=== PATIENT | female | born 1930 ===

== ENCOUNTER 2016-12-03 11:22 | Emergency (ER) | payer MEDICARE, OTHER ==
[2016-12-03 12:04] VITALS: BP 130/78; PULSE 87; RESP 18; TEMP 98.5; O2SAT 100
--- NOTE | 2016-12-03 12:23 | ED PDOC ---
Lower Extremity Pain/Injury Time Seen by Provider: 12/03/16 12:21 Chief Complaint (Nursing): Lower Extremity Problem/Injury Chief Complaint (Provider): Right Knee Pain History Per: Patient History/Exam Limitations: no limitations Onset/Duration Of Symptoms: Days (x2) Current Symptoms Are (Timing): Still Present Severity: Mild Additional Complaint(s): Patient is an 86 year old female presenting to the ED complaining of right knee pain x2 days. Patient denies trauma or injury. Patient takes Tylenol and Tramadol with relief. PMD: none Past Medical History Reviewed: Historical Data, Nursing Documentation, Vital Signs Vital Signs: Last Vital Signs Temp 98.5 F 12/03/16 12:01 Pulse 87 12/03/16 12:01 Resp 18 12/03/16 12:01 BP 130/78 12/03/16 12:01 Pulse Ox 100 12/03/16 12:01 - Medical History PMH: HTN, Osteoporosis - Surgical History Surgical History: Cholecystectomy, - Family History Family History: States: No Known Family Hx - Home Medications Home Medications: Ambulatory Orders Medication Instructions Recorded Meclizine [Meclizine*] 25 mg PO TID #21 tab 04/21/16 Ibuprofen [Motrin Tab] 600 mg PO Q6 #30 tab 07/15/16 Acetaminophen [Tylenol 325mg tab] 2 tab PO Q6 PRN #24 tab 08/18/16 Acetaminophen 2 tab PO Q6 PRN #20 tab 12/03/16 - Allergies Allergies/Adverse Reactions: Allergies Allergy/AdvReac Type Severity Reaction Status Date / Time No Known Allergies Allergy Verified 12/03/16 12:01 Review of Systems ROS Statement: Except As Marked, All Systems Reviewed And Found Negative Constitutional: Negative for: Fever Musculoskeletal: Positive for: Other (rt knee pain) Physical Exam - Reviewed Nursing Documentation Reviewed: Yes Vital Signs Reviewed: Yes - Physical Exam Appears: Positive for: Well, Non-toxic, No Acute Distress Head Exam: Positive for: ATRAUMATIC, NORMAL INSPECTION, NORMOCEPHALIC Skin: Positive for: Normal Color, Warm, DRY Neck: Positive for: Normal, Painless ROM Extremity: Positive for: Normal ROM (Able to flex and extend without difficulty. ), Tenderness (mild tenderness noted by patient generalized knee. No effusion/ no swelling noted.), Swelling Neurologic/Psych: Positive for: Alert, Oriented - ECG O2 Sat by Pulse Oximetry: 100 (RA) Pulse Ox Interpretation: Normal - Progress ED Course And Treament: Patient has h/o arthritis and knee pain has been x 2 day. Denies any falls. Able to ambulate without difficulty. Has attempted tramadol for pain (takes for generalized joint pain). d/w patient to f/u with pmd. Will try ice/rest/tylenol x 2 days. Medical Decision Making Medical Decision Making: Time: 12:25 Impression: Rt knee pain Plan: Scribe Attestation: Documented by [place] acting as a scribe for Rebeccafrancesca Callum. Provider Attestation: All medical record entries made by the Scribe were at my direction and personally dictated by me. I have reviewed the chart and agree that the record accurately reflects my personal performance of the history, physical exam, medical decision making, and the department course for this patient. I have also personally directed, reviewed, and agree with the discharge instructions and disposition. Disposition - Clinical Impression Clinical Impression: Knee pain - Patient ED Disposition Is Patient to be Admitted: No - Disposition Disposition: Routine/Home Disposition Time: 12:35 Condition: FAIR Prescriptions: Acetaminophen 2 tab PO Q6 PRN #20 tab PRN Reason: Pain, Severe (8-10) Instructions: Knee Pain (ED) Print Language: MARSHALLESE
== END 2016-12-03 12:52 | disposition home or self-care (01) ==
LOC: H.ER 11:22
DX: M25.561 Pain in right knee (principal); M81.0 Age-related osteoporosis without current pathological fracture; I10 Essential (primary) hypertension

== ENCOUNTER 2017-02-09 14:44 | Emergency (ER) | payer MEDICARE, OTHER ==
[2017-02-09 14:52] VITALS: PULSE 84; RESP 20; TEMP 99.3; O2SAT 98
[2017-02-09] MEDS ORDERED: TDAP Vaccine 0.5 mL Syr IM ONE (14:59)
--- NOTE | 2017-02-09 15:10 | ED PDOC ---
HPI: General Adult Time Seen by Provider: 02/09/17 15:08 Chief Complaint (Nursing): Dizziness/Lightheaded Chief Complaint (Provider): FALL History Per: Patient (86 Y/O FEMALE TRIPPED ON UNEVEN PAVEMENT AND FELL FORWARD ON WRIST AND KNEE. NO HEAD INJURY. DENIES ANY DIZZINESS/WEAKNESS. DENIES ANY CHEST PAIN ETC.) Past Medical History Reviewed: Historical Data, Nursing Documentation, Vital Signs Vital Signs: Last Vital Signs Temp 99.3 F 02/09/17 14:47 Pulse 84 02/09/17 14:47 Resp 20 02/09/17 14:47 BP Pulse Ox 98 02/09/17 15:10 - Medical History PMH: HTN, Osteoporosis - Surgical History Surgical History: Cholecystectomy, - Home Medications Home Medications: Ambulatory Orders Medication Instructions Recorded Meclizine [Meclizine*] 25 mg PO TID #21 tab 04/21/16 Ibuprofen [Motrin Tab] 600 mg PO Q6 #30 tab 07/15/16 Acetaminophen [Tylenol 325mg tab] 2 tab PO Q6 PRN #24 tab 08/18/16 Acetaminophen 2 tab PO Q6 PRN #20 tab 12/03/16 Bacitracin Ointment [Bacitracin] 0.5 gm TOP BID #1 tube 02/09/17 - Allergies Allergies/Adverse Reactions: Allergies Allergy/AdvReac Type Severity Reaction Status Date / Time No Known Allergies Allergy Verified 02/09/17 14:47 Review of Systems ROS Statement: Except As Marked, All Systems Reviewed And Found Negative Physical Exam - Reviewed Nursing Documentation Reviewed: Yes Vital Signs Reviewed: Yes - Physical Exam Appears: Positive for: Well, Non-toxic, No Acute Distress Head Exam: Positive for: ATRAUMATIC, NORMAL INSPECTION, NORMOCEPHALIC Skin: Positive for: Normal Color, Warm, DRY Eye Exam: Positive for: EOMI, Normal appearance, PERRL ENT: Positive for: Normal ENT Inspection Neck: Positive for: Normal, Painless ROM Cardiovascular/Chest: Positive for: Regular Rate, Rhythm Respiratory: Positive for: CNT, Normal Breath Sounds Gastrointestinal/Abdominal: Positive for: Normal Exam, Bowel Sounds, Soft Back: Positive for: Normal Inspection Extremity: Positive for: Normal ROM, Tenderness (MILD ABRASION AND TENDERNESS ANTERIOR RIGHT KNEE.), Other (INJURY NOTED TO VOLAR SURFACE LEFT WRIST. ABLE TO MOVE WITH MINIMAL DIFFICULTY.) Neurologic/Psych: Positive for: Alert, Oriented - ECG O2 Sat by Pulse Oximetry: 98 - Progress ED Course And Treament: TDAP 0.5 ML IM xry of right knee: no acute fx xry of left wrist: no acute fx Disposition - Clinical Impression Clinical Impression: Wrist contusion, Knee contusion - Patient ED Disposition Is Patient to be Admitted: No - Disposition Disposition: Routine/Home Disposition Time: 16:01 Prescriptions: Bacitracin Ointment [Bacitracin] 0.5 gm TOP BID #1 tube Instructions: Wrist Injury (ED), Knee Pain (ED), Contusion in Adults (ED) Print Language: FAROESE
--- NOTE | 2017-02-09 16:10 | RAD ---
PROCEDURE: Right Knee Radiographs. HISTORY: COMPARISON: None available. FINDINGS: BONES: Osseous demineralization limits evaluation for acute fracture lines. Degenerative changes including tenting of the intercondylar notch. No acute displaced fracture. JOINTS: No dislocation. JOINT EFFUSION: No significant joint effusion. OTHER FINDINGS: None. IMPRESSION: Osseous demineralization. Degenerative changes. No acute displaced fracture, dislocation, or significant joint effusion identified. If symptoms persist, or if there is continued clinical concern, x-ray follow-up in 7-10 days should be considered.
--- NOTE | 2017-02-09 16:13 | RAD ---
PROCEDURE: Left Wrist Radiographs. HISTORY: FOOSH COMPARISON: None available. FINDINGS: BONES: Osseous demineralization. Degenerative changes No acute displaced fracture. JOINTS: No dislocation. SOFT TISSUES: Unremarkable. No evidence of radiopaque foreign body OTHER FINDINGS: None. IMPRESSION: Osseous demineralization. Degenerative changes. No acute displaced fracture, dislocation, or significant joint effusion identified. If symptoms persist, or if there is continued clinical concern, x-ray follow-up in 7-10 days should be considered.
== END 2017-02-09 16:50 | disposition home or self-care (01) ==
LOC: H.ER 14:44
DX: S80.01XA Contusion of right knee, initial encounter (principal); S60.212A Contusion of left wrist, initial encounter; W19.XXXA Unspecified fall, initial encounter; Y92.89 Other specified places as the place of occurrence of the external cause; M17.11 Unilateral primary osteoarthritis, right knee

== ENCOUNTER 2017-09-11 16:33 | Inpatient (IN) | payer MEDICARE, OTHER ==
[2017-09-11] MEDS ORDERED: Morphine 4 MG/ML VIAL IM ONE (16:47)
--- NOTE | 2017-09-11 16:48 | ED PDOC ---
Upper Extremity Pain/Injury Time Seen by Provider: 09/11/17 16:39 Chief Complaint (Nursing): Upper Extremity Problem/Injury Chief Complaint (Provider): Wrist injury History Per: Patient Additional Complaint(s): Pt is an 87 yo female, PMH of HTN, Osteoporosis, Gastritis, presents to ED s/p a trip and fasll while dancing. pt fell onto outstretched rigth hand. Pt right hand dominant. (+) deformity noted, ice and sling provided by EMS. Pt given IM Morphine upon arrival for pain. Past Medical History Reviewed: Historical Data, Nursing Documentation, Vital Signs Vital Signs: Last Vital Signs Temp 98.0 F 09/11/17 16:36 Pulse 81 09/11/17 16:36 Resp 18 09/11/17 16:36 BP 176/83 H 09/11/17 16:36 Pulse Ox 99 09/11/17 16:36 - Medical History PMH: HTN, Osteoporosis - Surgical History Surgical History: Cholecystectomy, - Family History Family History: States: Unknown Family Hx - Social History Current smoker - smoking cessation education provided: No Alcohol: None Drugs: Denies - Home Medications Home Medications: Ambulatory Orders Medication Instructions Recorded Brimonidine Tartrate/Timolol 1 drop EACHEYE Q12 09/11/17 [Combigan 0.2%-0.5% Eye Drops] Famotidine [Pepcid] 20 mg PO DAILY 09/11/17 Lidocaine 5% [Lidoderm] 1 patch TD DAILY 09/11/17 Linaclotide [Linzess] 290 mcg PO DAILY PRN 09/11/17 Metoprolol Tartrate [Lopressor] 50 mg PO Q12 09/11/17 Multivitamin [Multi-Vitamin Daily] 1 tab PO DAILY 09/11/17 Ranitidine HCl [Zantac] 300 mg PO DAILY PRN 09/11/17 Sertraline [Zoloft] 25 mg PO HS 09/11/17 amLODIPine [Norvasc] 5 mg PO DAILY 09/11/17 - Allergies Allergies/Adverse Reactions: Allergies Allergy/AdvReac Type Severity Reaction Status Date / Time No Known Allergies Allergy Verified 09/11/17 16:36 Review of Systems ROS Statement: Except As Marked, All Systems Reviewed And Found Negative Musculoskeletal: Positive for: Other (wrist pain) Physical Exam - Reviewed Nursing Documentation Reviewed: Yes Vital Signs Reviewed: Yes - Physical Exam Appears: Positive for: Well, Non-toxic, No Acute Distress Head Exam: Positive for: ATRAUMATIC, NORMAL INSPECTION, NORMOCEPHALIC Skin: Positive for: Normal Color, Warm, DRY Eye Exam: Positive for: EOMI, Normal appearance, PERRL ENT: Positive for: Normal ENT Inspection Neck: Positive for: Normal, Painless ROM Cardiovascular/Chest: Positive for: Regular Rate, Rhythm Respiratory: Positive for: CNT, Normal Breath Sounds Gastrointestinal/Abdominal: Positive for: Normal Exam, Bowel Sounds, Soft Back: Positive for: Normal Inspection Extremity: Positive for: Tenderness, Deformity, Swelling, Other (FROM to digits , distal sensation intact. radial pulse 2+) Neurologic/Psych: Positive for: Alert, Oriented - ECG O2 Sat by Pulse Oximetry: 99 Medical Decision Making Medical Decision Making: Pt medicated with 2 mg Morphine upon arrival for pain XR: (+) Displaced, comminuted fracture to distal radius. Case discussed with Ortho, dr. Linares, who agreed with admission at this time. Requested CT scan to be ordered as well. Case discussed with Med on-call, Dr. Almonte, who agreed with admission at this time. Further diagnostics ordered Pt medicated with additional 2 mg Morphine for complaints of pain on re-eval Disposition - Clinical Impression Clinical Impression: Fracture of wrist - Patient ED Disposition Is Patient to be Admitted: Yes - Disposition Disposition Time: 19:12 Condition: STABLE Forms: [facility] ([place])
[2017-09-11] MEDS ORDERED: Morphine 4 MG/ML VIAL ONE ×2 (16:50→19:53)
--- NOTE | 2017-09-11 17:41 | RAD ---
PROCEDURE: Right Wrist Radiographs. HISTORY: pain s/p fall onto outstretched hand COMPARISON: None. FINDINGS: BONES: Comminuted transverse distal radial fracture with overriding of the fragments. No definite ulnar fracture. There is a sclerotic linear density traversing the distal ulnar diaphysis. This could represent a fracture. However, there is no displacement of fragments. JOINTS: Radiocarpal articulation intact. Normal carpal alignment maintained. SOFT TISSUES: Normal. OTHER FINDINGS: None. IMPRESSION: Comminuted distal radial fracture with overriding. No definite ulnar fracture.
[2017-09-11 19:44] LABS: BASO % 0.3 % (0.0-2.0); EOS # 0.1 K/uL (0.0-0.7); EOS % 1.1 % (0.0-4.0); HEMOGLOBIN 14.1 g/dL (12.0-16.0); LYMPH # 2.6 K/uL (1.0-4.3); LYMPH % 24.4 % (20.0-40.0); MEAN CELL VOLUME 94.5 fl (81.0-99.0); MEAN CORPUSCULAR HEMOGLOBIN 32.1 pg (27.0-31.0); MEAN PLATELET VOLUME 9.8 fl (7.2-11.7); MONO # 0.8 K/uL (0.0-0.8); MONO % 7.7 % (0.0-10.0); NEUT # 7.1 K/uL (1.8-7.0); NEUT % 66.5 % (50.0-75.0); NRBC % 0.1 % (0.0-0.0); PARTIAL THROMBOPLASTIN TIME 33.9 Seconds (25.6-37.1); PROTHROMBIN TIME 10.8 Seconds (9.8-13.1); RBC 4.39 Mil/uL (3.80-5.20); RED CELL DISTRIBUTION WIDTH 14.1 % (11.5-14.5); WHITE BLOOD COUNT 10.7 K/uL (4.8-10.8)
[2017-09-11 19:51] LABS: ALB/GLOB RATIO 1.1 (1.0-2.1); ALT/SGPT 30 U/L (9-52); AST/SGOT 29 U/L (14-36); BLOOD UREA NITROGEN 15 mg/dl (7-17); CALCIUM 9.4 mg/dL (8.4-10.2); GFR AFRICAN-AMERICAN > 60; GFR NON-AFRICAN AMERICAN > 60
--- NOTE | 2017-09-11 20:47 | CT ---
EXAM: CT Right Upper Extremity Without Intravenous Contrast, Wrist EXAM DATE/TIME: 09/11/2017 6:49 PM CLINICAL HISTORY: 87 years old, female; Injury or trauma; Fall; Initial encounter; Fracture, traumatic injury; Closed fracture; Wrist; Right; Bone fracture not specified; Additional info: Fxr. Sent phy. Doc. TECHNIQUE: Axial computed tomography images of the right wrist without intravenous contrast. All CT scans at this facility use one or more dose reduction techniques, viz.: automated exposure control; ma/kV adjustment per patient size (including targeted exams where dose is matched to indication; i.e. head); or iterative reconstruction technique. Coronal and sagittal reformatted images were created and reviewed. COMPARISON: CR - WRIST, RIGHT 3 VIEWS 2017-09-11 17:02 FINDINGS: Bones/joints: Streak and motion limit evaluation of the right wrist. There is a comminuted impacted fracture of the distal right radial diametaphysis. There is posterior displacement of the major distal fracture fragment. Radiocarpal joint space is maintained. There is a nondisplaced impaction fracture of the distal ulna. Radioulnar articulation is maintained. There is a fracture of the ulnar styloid. Allowing for motion and technique, no carpal fractures are identified. Soft tissues: Streak limits attenuation of the soft tissues IMPRESSION: Comminuted impacted distal right radial fracture, no dislocation; nondisplaced distal ulnar fracture
[2017-09-12] MEDS: Morphine 4 MG/ML VIAL IVP PRN ×2 (00:19→23:36)
[2017-09-12] MEDS ORDERED: Morphine 4 MG/ML VIAL ONE (00:29)
--- NOTE | 2017-09-12 07:49 | CP.PCM.CON ---
History of Present Illness - History of Present Illness History of Present Illness: Orthopedic consultation Dr. Linares 87F RHD fell last night complains of right wrist pain, found to have distal radius fracture. Denies numbness/tingling. Complains of a lot of pain when moving fingers. PMH: osteoporosis/gastritis NKDA Review of Systems - Review of Systems All systems: reviewed and no additional remarkable complaints except - Musculoskeletal Musculoskeletal: As Per HPI - Neurological Neurological: As Per HPI Past Patient History - Past Medical History & Family History Past Medical History?: Yes Past Family History: Reviewed and not pertinent - Past Social History Alcohol: None Drugs: Denies - CARDIAC Hx Hypertension: Yes - MUSCULOSKELETAL/RHEUMATOLOGICAL Hx Osteoporosis: Yes - PSYCHIATRIC Hx Substance Use: No - SURGICAL HISTORY Hx Cholecystectomy: Yes - ANESTHESIA Hx Anesthesia: Yes Hx Anesthesia Reactions: No Meds Allergies/Adverse Reactions: Allergies Allergy/AdvReac Type Severity Reaction Status Date / Time No Known Allergies Allergy Verified 09/11/17 16:36 - Medications Medications: Current Medications Morphine Sulfate (Morphine) 2 mg IVP Q6 PRN PRN Reason: Pain, moderate (4-7) Last Admin: 09/12/17 00:19 Dose: 2 mg Physical Exam - Constitutional Appears: Well, No Acute Distress - Head Exam Head Exam: ATRAUMATIC, NORMAL INSPECTION - Respiratory Exam Respiratory Exam: NORMAL BREATHING PATTERN - Expanded Upper Extremities Exam Right Neuro motor exam: finger 2-5 abduction intact, thumb abduction, thumb IP flexion intact, thumb opposition intact Vascular exam: normal capillary refill (sensation intact to fingers, splint intact, hand elevated) - Neurological Exam Neurological exam: Alert, Oriented x3 - Psychiatric Exam Psychiatric exam: Normal Affect, Normal Mood - Skin Skin Exam: Dry, Intact, Normal Color, Warm Additional comments: sugar tong splint intact Results - Vital Signs Recent Vital Signs: Last Vital Signs Temp 98.3 F 09/11/17 20:54 Pulse 84 09/12/17 06:08 Resp 17 09/12/17 06:08 BP 152/76 H 09/12/17 06:08 Pulse Ox 97 09/12/17 06:08 - Labs Result Diagrams: 09/11/17 19:30 09/11/17 19:30 Labs: Laboratory Results - last 24 hr 09/11/17 09/11/17 09/11/17 19:30 19:30 19:30 WBC 10.7 RBC 4.39 Hgb 14.1 Hct 41.5 MCV 94.5 MCH 32.1 H MCHC 34.0 RDW 14.1 Plt Count 195 MPV 9.8 Neut % (Auto) 66.5 Lymph % (Auto) 24.4 [place] % (Auto) 7.7 Eos % (Auto) 1.1 Baso % (Auto) 0.3 Neut # (Auto) 7.1 H Lymph # (Auto) 2.6 [place] # (Auto) 0.8 Eos # (Auto) 0.1 Baso # (Auto) 0.0 PT 10.8 INR 1.0 APTT 33.9 Sodium 141 Potassium 4.2 Chloride 103 Carbon Dioxide 26 Anion Gap 16 BUN 15 Creatinine 0.6 L Est GFR ( Amer) > 60 Est GFR (Non-Af Amer) > 60 Random Glucose 127 H Calcium 9.4 Total Bilirubin 0.4 AST 29 ALT 30 Alkaline Phosphatase 104 Total Protein 7.6 Albumin 4.0 Globulin 3.6 Albumin/Globulin Ratio 1.1 - Impressions Impression: Patient Name / ID : KAILEY CASTLE E / [id number] Exam Date : 09/11/2017 17:02:57 ( Approved ) Study Comment : Sex / Age : F / 87Y Creator : Ruddy Munoz MD Dictator : Ruddy Munoz MD Book Agent : Job Service Consultant : Ruddy Munoz MD Approver2 : Report Date : 09/11/2017 17:39:52 My Comment : PROCEDURE: Right Wrist Radiographs. HISTORY: pain s/p fall onto outstretched hand COMPARISON: None. FINDINGS: BONES: Comminuted transverse distal radial fracture with overriding of the fragments. No definite ulnar fracture. There is a sclerotic linear density traversing the distal ulnar diaphysis. This could represent a fracture. However, there is no displacement of fragments. JOINTS: Radiocarpal articulation intact. Normal carpal alignment maintained. SOFT TISSUES: Normal. OTHER FINDINGS: None. IMPRESSION: Comminuted distal radial fracture with overriding. No definite ulnar fracture. Assessment & Plan (1) Closed fracture of right distal radius Assessment and Plan: ORIF indicated risks/benefits/alt explained to patient who verbalized understanding and agrees to ORIF pain meds elevation NPO for OR dSureshw Dr. Linares, agrees with above Status: Acute
--- NOTE | 2017-09-12 08:52 | CP.PCM.HP ---
History of Present Illness - History of Present Illness History of Present Illness: 87 yo female, PMH of HTN, Osteoporosis, Gastritis, presented to ED overnight after a tripping and falling while dancing. Pt fell onto outstretched right hand. She noticed pain was getting worse as well as deformity and decided to come to ED. Imaging studies showed comminute distal Fx and patient was admitted to [facility] for orthopedic eval and surgical treatment. pain improved after ED meds. Present on Admission - Present on Admission Any Indicators Present on Admission: No Review of Systems - Review of Systems All systems: reviewed and no additional remarkable complaints except - Musculoskeletal Musculoskeletal: Deformity. absent: Numbness, Stiffness, Tingling Additional comments: R/hand pain Past Patient History - Past Medical History & Family History Past Medical History?: Yes Past Family History: Reviewed and not pertinent - Past Social History Alcohol: None Drugs: Denies - CARDIAC Hx Hypertension: Yes - MUSCULOSKELETAL/RHEUMATOLOGICAL Hx Osteoporosis: Yes - PSYCHIATRIC Hx Substance Use: No - SURGICAL HISTORY Hx Cholecystectomy: Yes - ANESTHESIA Hx Anesthesia: Yes Hx Anesthesia Reactions: No Meds Home Medications: Home Medication List Medication Instructions Recorded Confirmed Type oxyCODONE/Acetaminophen [Percocet 1 tab PO Q4 PRN #30 tab 09/12/17 Rx 5/325 mg Tab] Allergies/Adverse Reactions: Allergies Allergy/AdvReac Type Severity Reaction Status Date / Time No Known Allergies Allergy Verified 09/11/17 16:36 Physical Exam - Constitutional Appears: Non-toxic, No Acute Distress - Head Exam Head Exam: ATRAUMATIC - Eye Exam Eye Exam: EOMI, PERRL - ENT Exam ENT Exam: Mucous Membranes Moist - Respiratory Exam Respiratory Exam: Clear to Auscultation Bilateral, NORMAL BREATHING PATTERN. absent: Rales - Cardiovascular Exam Cardiovascular Exam: REGULAR RHYTHM, +S1, +S2. absent: Gallop - GI/Abdominal Exam GI & Abdominal Exam: Normal Bowel Sounds, Soft - Extremities Exam Additional comments: R/arm covered with gloria bandage and dressing. Able to move finger with mild pain. No signs of neurovascular compromise at this time - Neurological Exam Neurological exam: Alert, Oriented x3 - Psychiatric Exam Psychiatric exam: Normal Affect, Normal Mood - Skin Skin Exam: Normal Color, Warm Results - Vital Signs Recent Vital Signs: Last Vital Signs Temp 98 F 09/12/17 08:00 Pulse 74 09/12/17 08:01 Resp 20 09/12/17 08:00 BP 118/67 09/12/17 08:00 Pulse Ox 98 09/12/17 08:00 - Labs Result Diagrams: 09/11/17 19:30 09/11/17 19:30 Labs: Laboratory Results - last 24 hr 09/11/17 09/11/17 09/11/17 19:30 19:30 19:30 WBC 10.7 RBC 4.39 Hgb 14.1 Hct 41.5 MCV 94.5 MCH 32.1 H MCHC 34.0 RDW 14.1 Plt Count 195 MPV 9.8 Neut % (Auto) 66.5 Lymph % (Auto) 24.4 [place] % (Auto) 7.7 Eos % (Auto) 1.1 Baso % (Auto) 0.3 Neut # (Auto) 7.1 H Lymph # (Auto) 2.6 [place] # (Auto) 0.8 Eos # (Auto) 0.1 Baso # (Auto) 0.0 PT 10.8 INR 1.0 APTT 33.9 Sodium 141 Potassium 4.2 Chloride 103 Carbon Dioxide 26 Anion Gap 16 BUN 15 Creatinine 0.6 L Est GFR ( Amer) > 60 Est GFR (Non-Af Amer) > 60 Random Glucose 127 H Calcium 9.4 Total Bilirubin 0.4 AST 29 ALT 30 Alkaline Phosphatase 104 Total Protein 7.6 Albumin 4.0 Globulin 3.6 Albumin/Globulin Ratio 1.1 Assessment & Plan - Assessment and Plan (Free Text) Assessment: 87 y/o F admitted for distal radial Fx Comminute distal radial Fx Acute S/p Fall Ortho consulted will /u recs Medically Cleared for ORIF/Sx
[2017-09-12] MEDS ORDERED: Bacitracin Ointment 30 GM TUBE ONE (08:53)
[2017-09-12] MEDS ORDERED: Absorbable Gelatin Sponge Size 100 ONE (08:56)
--- NOTE | 2017-09-12 09:45 | CP.PCM.CON ---
History of Present Illness - History of Present Illness History of Present Illness: THE PATIENT IS AN 87 YEAR OLD FEMALE WHO HAS A HISTORY OF HYPERTENSION AND OSTEOPOROSIS WHO FELL WHILE DANCING AND SUSTAINED A FRACTURE OF HER DISTAL RIGHT RADIUS. CARDIOLOGY WAS ASKED TO SEE HER FOR PRE-OP CLEARANCE. SHE DENIES SYNCOPE, NEAR-SYNCOPE, CHEST PAIN, PALPITATIONS OR SOB. SHE DENIES ANY CARDIAC HISTORY IN THE PAST. SHE ALSO DENIES OTHER MAJOR PROBLEMS SUCH COPD OR DM. Past Patient History - Past Medical History & Family History Past Medical History?: Yes Past Family History: Reviewed and not pertinent - Past Social History Alcohol: None Drugs: Denies - CARDIAC Hx Hypertension: Yes - MUSCULOSKELETAL/RHEUMATOLOGICAL Hx Osteoporosis: Yes - PSYCHIATRIC Hx Substance Use: No - SURGICAL HISTORY Hx Cholecystectomy: Yes - ANESTHESIA Hx Anesthesia: Yes Hx Anesthesia Reactions: No Meds Home Medications: Home Medication List Medication Instructions Recorded Confirmed Type oxyCODONE/Acetaminophen [Percocet 1 tab PO Q4 PRN #30 tab 09/12/17 Rx 5/325 mg Tab] Allergies/Adverse Reactions: Allergies Allergy/AdvReac Type Severity Reaction Status Date / Time No Known Allergies Allergy Verified 09/11/17 16:36 - Medications Medications: Current Medications Enoxaparin Sodium (Lovenox) 40 mg SC DAILY ANGELO PRN Reason: Protocol Sodium Chloride (Sodium Chloride 0.9%) 1,000 mls @ 100 mls/hr IV .Q10H ANGELO Morphine Sulfate (Morphine) 2 mg IVP Q6 PRN PRN Reason: Pain, moderate (4-7) Last Admin: 09/12/17 00:19 Dose: 2 mg Physical Exam - Respiratory Exam Respiratory Exam: Clear to Auscultation Bilateral - Cardiovascular Exam Cardiovascular Exam: REGULAR RHYTHM, +S1, +S2, Systolic Murmur - Extremities Exam Additional comments: RIGHT UE IN BANDAGES NO LE EDEMA - Additional Findings Additional findings: EKG NSR, CANNOT EXCLUDE OLD ASWMI CXR CHRONIC CHANGES IN MY OPINION ECHO GOOD LV FUNCTION, MODERATE X-RAY WITH DISTAL RIGHT WRIST FRACTURE Results - Vital Signs Recent Vital Signs: Last Vital Signs Temp 98.9 F 09/12/17 09:20 Pulse 88 09/12/17 09:20 Resp 20 09/12/17 09:20 BP 142/78 09/12/17 09:20 Pulse Ox 98 09/12/17 09:20 - Labs Result Diagrams: 09/14/17 05:00 09/14/17 05:00 Labs: Laboratory Results - last 24 hr 09/11/17 09/11/17 09/11/17 19:30 19:30 19:30 WBC 10.7 RBC 4.39 Hgb 14.1 Hct 41.5 MCV 94.5 MCH 32.1 H MCHC 34.0 RDW 14.1 Plt Count 195 MPV 9.8 Neut % (Auto) 66.5 Lymph % (Auto) 24.4 [place] % (Auto) 7.7 Eos % (Auto) 1.1 Baso % (Auto) 0.3 Neut # (Auto) 7.1 H Lymph # (Auto) 2.6 [place] # (Auto) 0.8 Eos # (Auto) 0.1 Baso # (Auto) 0.0 PT 10.8 INR 1.0 APTT 33.9 Sodium 141 Potassium 4.2 Chloride 103 Carbon Dioxide 26 Anion Gap 16 BUN 15 Creatinine 0.6 L Est GFR ( Amer) > 60 Est GFR (Non-Af Amer) > 60 Random Glucose 127 H Calcium 9.4 Total Bilirubin 0.4 AST 29 ALT 30 Alkaline Phosphatase 104 Total Protein 7.6 Albumin 4.0 Globulin 3.6 Albumin/Globulin Ratio 1.1 Assessment & Plan - Assessment and Plan (Free Text) Assessment: FALL WITH RIGHT WRIST FRACTURE HYPERTENSION OSTEOPOROSIS Plan: THE PATIENT IS CLEARED FOR SURGERY THE PATIENT WAS DISCUSSED WITH ANESTHESIOLOGY FOR OR MANAGEMENT
[2017-09-12] MEDS ORDERED: Phenylephrine 10 mg/ml Inj ONE (10:12)
[2017-09-12] MEDS ORDERED: Neostigmine Methylsulfate 3mg/3ml Syringe IV ONE (10:12)
[2017-09-12] MEDS ORDERED: Ropivacaine 0.5% 30ML IV ONE (10:12)
[2017-09-12] MEDS ORDERED: Succinylcholine 200 mg/10 ml Inj IV ONE (10:20)
[2017-09-12] MEDS ORDERED: Rocuronium 10 mg/ml (5 ml) ONE (10:20)
[2017-09-12] MEDS ORDERED: Propofol 10 mg/ml Inj (20 ML) ONE (10:20)
[2017-09-12] MEDS ORDERED: Etomidate 20 mg/10ml Inj IV ONE (10:21)
[2017-09-12] MEDS ORDERED: Oxycodone/Acetaminophen 5/325 mg Tab PO PRN (10:44)
[2017-09-12] MEDS ORDERED: Esmolol 100 mg/10ml Inj IV ONE (11:28)
[2017-09-12] MEDS ORDERED: Lactated Ringer's 1,000 ML IV ONE (11:35)
--- NOTE | 2017-09-12 11:47 | RAD ---
PROCEDURE: CHEST RADIOGRAPH, 1 VIEW HISTORY: pre op COMPARISON: Portable chest 07/15/2016. FINDINGS: LUNGS: Limited patchy infiltrate or atelectasis is developing in the right upper lobe region and possibly the medial right base as well. No definite left-sided infiltrate although linear atelectasis seen at the medial left base. PLEURA: No pneumothorax or pleural fluid seen. CARDIOVASCULAR: Normal. OSSEOUS STRUCTURES: No significant abnormalities. VISUALIZED UPPER ABDOMEN: Normal. OTHER FINDINGS: None. IMPRESSION: Early infiltrates are questioned at the superior right lung zone as well as the medial right base. Linear atelectasis medial left base. Further clinical correlation is advised.
[2017-09-12] MEDS ORDERED: Metoprolol 1 mg/ml Inj IVP ONE ×2 (13:31→13:41)
--- NOTE | 2017-09-12 14:20 | PCM.ANESB4 ---
Infraclavicular Block - Femoral Nerve Block Date of Procedure: 09/12/17 Anesthesiologist: Larisa Pre-Procedure Diagnosis: Right distal radius fracture Post-Procedure Diagnosis: Same Procedure Performed: Brachial Plexus at the Infraclavicular area Right - Procedure Infraclavicular Block: The procedure was explained to the patient that it is for the post-operative pain management. Consent was obtained after a thorough discussion with the patient regarding the benefits and possible complications of local anesthetic block of the brachial plexus at the infraclavicular area. The patient was brought to the operating room and standard monitors were applied. Time-out was held with the circulating nurse to confirm the correct surgery and the appropriate block. Under general anesthesia, patient's head was gently rotated away from the operative ____right____ shoulder and the area medial to the coracoid process and inferior to the clavicle was carefully palpated. The ultrasound transducer was then applied to the skin in the transverse plane and the brachial plexus was visualized surrounding the axillary artery and deep to the pectoralis major and minor muscles. After thorough identification, this area was prepped with Chloraprep. At this point, a #21 gauge Stimuplex 4-inch needle was inserted cephalad to the ultrasound transducer and inferior to the clavicle in-plane towards the posterior aspect of the axillary artery. Needle advancement was performed carefully under ultrasound visualization. Nerve stimulator was used and twitch of the affected extremity including fingers, hand, wrist and elbow was obtained at current of __0.4___MA. After repeated negative aspiration, __2___cc of __ 0.375___% ropivicaine was injected and this was followed with ___23___ cc of __0.375 % ____ropivicaine . Under ultrasound guidance the local anesthetics were observed surrounding the cords of the brachial plexus. The needle was removed intact. The patient tolerated the infraclavicular block of the brachial plexus well with stable vital signs was prepared for subsequent surgery.
[2017-09-12] MEDS ORDERED: Lactated Ringer's 1,000 ML IV SCH (14:30)
--- NOTE | 2017-09-12 14:44 | PCM.SURG1 ---
Surgeon's Initial Post Op Note - Surgeon's Notes Surgeon: Rachid Linares MD Teaching Fellow: Prabhakar Adames PA-C, Cindy GAVIRIA Type of Anesthesia: General Endo Anesthesia Administered By: Oscar Sun MD Pre-Operative Diagnosis: R wrist displaced, comminuted distal radius fracture Operative Findings: Right wrist displaced, comminuted, intra-articular distal radius fracture, postraumatic carpal tunnel syndrome Post-Operative Diagnosis: Right wrist displaced, comminuted, intra-articular distal radius fracture, postraumatic carpal tunnel syndrome Operation Performed: (Operation was performed as an emergent procedure). Right wrist open reduction internal fixation of comminuted displaced intra-articular distal radius fracture, release of carpal tunnel, partial tenosynovectomy of flexor tendon, application of volar splint, intraoperative fluoroscopy and interperatation of radiologic images Specimen/Specimens Removed: None Estimated Blood Loss: EBL {In ML}: 5 Drains Used: No Drains Post-Op Condition: Good Date of Surgery/Procedure: 09/12/17 Time of Surgery/Procedure: 11:35 (Incision time - 12:30. End time - 13:50)
--- NOTE | 2017-09-12 16:01 | RAD ---
PROCEDURE: Right Wrist Radiographs. HISTORY: s/p R wrist ORIF COMPARISON: Right wrist radiographs 09/11/2017. FINDINGS: BONES: The patient is seen to be status post open reduction and internal fixation of distal right radial fracture by a volar compression plate and multiple transfixing screws. Adequate reduction appears to be achieved. A nondisplaced distal left ulnar fracture remains in question. JOINTS: Normal. No dislocation. SOFT TISSUES: Normal. OTHER FINDINGS: Partial cast obscures fine bony detail. IMPRESSION: Status post ORIF distal right radial fracture as discussed above. Nondisplaced distal right ulnar fracture again suspected.
[2017-09-12] MEDS ORDERED: HYDROmorphone 0.5 mg/0.5 ml ISec IVP SCH (17:15)
--- NOTE | 2017-09-12 18:17 | CARD ---
APPROVED REPORT EXAM: Two-dimensional and M-mode echocardiogram with Doppler and color Doppler. Other Information Quality : AverageRhythm : NSR INDICATION Murmur 2D DIMENSIONS IVSd1.18 (0.7-1.1cm)LVDd3.63 (3.9-5.9cm) LVOT Diameter2.22 (1.8-2.4cm)PWd0.86 (0.7-1.1cm) IVSs1.30 (0.8-1.2cm)LVDs2.63 (2.5-4.0cm) FS (%) 27.5 %PWs1.38 (0.8-1.2cm) LVEF (%)55.0 (>50%) M-Mode DIMENSIONS Left Atrium (MM)2.56 (2.5-4.0cm)IVSd0.83 (0.7-1.1cm) Aortic Root3.06 (2.2-3.7cm)LVDd4.44 (4.0-5.6cm) Aortic Cusp Exc.1.46 (1.5-2.0cm)PWd1.13 (0.7-1.1cm) IVSs1.46 cmFS (%) 45 % LVDs2.43 (2.0-3.8cm)PWs1.35 cm Aortic Valve AoV Peak Uutzqpan040.2cm/sAoV VTI47.1cmAO Peak GR.31mmHg LVOT Peak Smtibhhi45.3cm/sLVOT VTI14.77cmAO Mean GR.19mmHg CEASAR (VMAX)0.54dp7IJD (VTI)0.79cm2 Mitral Valve E/A ratio0.0 TDI E/Lateral E'0.0E/Medial E'0.0 LEFT VENTRICLE The left ventricle is normal size. There is moderate to severe concentric left ventricular hypertrophy. The left ventricular function is normal. The left ventricular ejection fraction is within the normal range. There is normal LV segmental wall motion. Transmitral Doppler flow pattern is Grade I-abnormal relaxation pattern. No left ventricle thrombus noted on this study. RIGHT VENTRICLE The right ventricle is normal size. There is normal right ventricular wall thickness. The right ventricular systolic function is normal. ATRIA The left atrium size is normal. The right atrium size is normal. AORTIC VALVE The aortic valve is mildly to moderately calcified. No aortic regurgitation is present. There is moderate valvular aortic stenosis. MITRAL VALVE The mitral valve is mildly thickened. There is no mitral valve stenosis. There is no mitral valve regurgitation noted. TRICUSPID VALVE The tricuspid valve is normal in structure. There is no tricuspid valve regurgitation noted. PULMONIC VALVE The pulmonary valve is normal in structure. There is no pulmonic valvular regurgitation. GREAT VESSELS The aortic root is normal in size. The IVC is normal in size and collapses >50% with inspiration. PERICARDIAL EFFUSION There is a small loculated anterior pericardial effusion. <Conclusion> The left ventricle is normal size. There is moderate to severe concentric left ventricular hypertrophy. The left ventricular function is normal. The left ventricular ejection fraction is within the normal range. There is normal LV segmental wall motion. Transmitral Doppler flow pattern is Grade I-abnormal relaxation pattern. The aortic valve is mildly to moderately calcified. There is moderate valvular aortic stenosis.
--- NOTE | 2017-09-12 22:18 | CARD ---
APPROVED REPORT EKG Measurement Heart [id number] <Conclusion> Sinus rhythm with 1st degree AV block Moderate voltage criteria for LVH, may be normal variant Cannot rule out Septal infarct, age undetermined Abnormal ECG
--- NOTE | 2017-09-13 07:19 | OP ---
PROCEDURE DATE: 09/12/2017 PREOPERATIVE DIAGNOSES: 1. Displaced comminuted distal radius fracture of the right wrist. 2. Posttraumatic carpal tunnel syndrome. POSTOPERATIVE DIAGNOSES: 1. Displaced comminuted distal radius fracture of the right wrist. 2. Posttraumatic carpal tunnel syndrome. PROCEDURE: 1. Open reduction internal fixation, displaced comminuted intraarticular distal radius fracture, 2 fragments. 2. Release of carpal tunnel. 3. Partial median neurolysis. 4. Partial flexor tenosynovectomy. 5. Autograft, allograft and bone graft. 6. Application of splint. 7. Positioning of fluoroscope, interpretation of video images. SURGEON: Rachid Linares MD BUFFER MACHINE: Cindy Barrera, certified registered nursing first aid instructor. SECOND CALIBRATOR BAROMETERS: Prabhakar Adames PA-C. TYPE OF ANESTHESIA: General endotracheal anesthesia. ANESTHESIA ADMINISTERED BY: Oscar Peres MD COMPLICATIONS: No complications. DRAINS: No drains. OPERATIVE INDICATIONS: Lydia Mcwilliams is an 87-year-old woman who fell sustaining a comminuted displaced distal radius fracture. The patient presented with increasing pain, numbness, and tingling in the first 2 fingers of the hand. Consent was obtained through the culturally competent heel lining paster. Pros and cons, risks and benefits of surgical approach were discussed, the possibility of mechanical failure, infection, thromboembolic disease, secondary or tertiary surgeries were discussed. OPERATIVE PROCEDURE: After having obtained informed consent in the above fashion, after having identified side, site and procedure and a critical pause/time-out, after the satisfactory induction of the anesthetic, the patient identified as Lydia Mcwilliams in the supine position with all bony prominences well padded. The right upper extremity was prepped and free draped in the usual fashion for upper extremity surgery. The tourniquet had been applied, but it was not yet inflated. After exsanguinating the limb using a inch Esmarch bandage, the tourniquet, which had been applied, was inflated to 250 mmHg. The operation is performed under eyeglass magnification control. After having obtained informed consent through the culturally competent heel lining paster Radha. After the satisfactory induction of the anesthetic and after having obtained cardiologic clearance with an echo, after satisfactory induction of the general endotracheal anesthesia with Dr. Peres and a discussion with the management of the patient's aortic stenosis, after having identified side, site and procedure and a critical pause/time-out, the right upper extremity was prepped and free draped in usual fashion for upper extremity surgery. Again, the tourniquet had been applied, after exsanguinating the limb using inch Esmarch bandage, tourniquet which have been applied was inflated to 250 mmHg. An incision was described in the median palmar crease deviating radially and then deviating back ulnarly in the interval between the flexor carpi radialis and palmaris longus tendons. The skin incision was carried down to the skin, subcutaneous tissue, the flap was elevated, the entire extent of the transverse carpal ligament is identified, this was divided, the palmar aponeurosis is divided, the plane between the flexor carpi radialis and the palmar longus is developed. This having been accomplished, the fracture was identified, the fracture was curetted of healing callus. It should be noted that prior to that the entire extent of the transverse carpal ligament was divided. The median nerve was found to be mildly contused, a careful partial median neurolysis was accomplished. Careful partial flexor tenosynovectomy was accomplished. A capsulotomy was accomplished using #15-blade. The fracture was reduced and held in a reduced position. The volar locking plate was applied to the volar aspect of the bone, each sequential drill hole was drilled, tapping, and the appropriate-sized screws were placed. Autograft, allograft, and bone graft was applied. A capsulotomy was repaired using interrupted FiberWire suture. Closure was in layers with interrupted Vicryl, nylon, and dianne. Verification of position is offered on AP and lateral image intensification views. Scott Roberts compression dressing and volar splint is applied. The patient is intact in recovery. Rachid Linares MD
[2017-09-13 07:30] LABS: BASO % 0.4 % (0.0-2.0); EOS % 0.1 % (0.0-4.0); HEMOGLOBIN 13.3 g/dL (12.0-16.0); LYMPH # 1.8 K/uL (1.0-4.3); LYMPH % 15.5 % (20.0-40.0); MEAN CELL VOLUME 94.2 fl (81.0-99.0); MEAN CORPUSCULAR HEMOGLOBIN 32.1 pg (27.0-31.0); MEAN PLATELET VOLUME 10.3 fl (7.2-11.7); MONO # 1.4 K/uL (0.0-0.8); MONO % 11.5 % (0.0-10.0); NEUT # 8.6 K/uL (1.8-7.0); NEUT % 72.5 % (50.0-75.0); RBC 4.14 Mil/uL (3.80-5.20); RED CELL DISTRIBUTION WIDTH 13.9 % (11.5-14.5); WHITE BLOOD COUNT 11.9 K/uL (4.8-10.8)
[2017-09-13 07:47] LABS: BLOOD UREA NITROGEN 7 mg/dl (7-17); CALCIUM 8.4 mg/dL (8.4-10.2); GFR AFRICAN-AMERICAN > 60; GFR NON-AFRICAN AMERICAN > 60
[2017-09-13] MEDS ORDERED: Potassium Chloride 20 mEq ER Tab PO ONE (08:26)
--- NOTE | 2017-09-13 09:47 | RAD ---
HISTORY: ? infiltrate on prior cxr COMPARISON: Chest radiograph dated 09/11/2017. TECHNIQUE: Chest PA and lateral FINDINGS: LUNGS: Similar appearance of patchy right upper lung and peripheral left midlung opacities. PLEURA: No significant pleural effusion identified. No pneumothorax apparent. CARDIOVASCULAR: Normal. OSSEOUS STRUCTURES: Unchanged. VISUALIZED UPPER ABDOMEN: Right upper quadrant surgical clips. OTHER FINDINGS: None. IMPRESSION: No significant interval change.
[2017-09-13] MEDS: Enoxaparin 40 mg Syringe SC SCH (09:57)
--- NOTE | 2017-09-13 10:13 | PN ---
DATE: 09/13/2017 SUBJECTIVE: The patient is seen and examined. Interim events noted. The patient is status post surgery. The patient feels okay. Pain is adequately controlled. No chest pain or shortness of breath. No overt complication from surgery. The patient tolerated surgery very well. Cardiology and orthopedic consult and followup noted and appreciated. The patient feels okay. No new complaints. PHYSICAL EXAMINATION: GENERAL: The patient is in no acute distress. VITAL SIGNS: Stable. HEART: S1 and S2, normal and regular. LUNGS: Good bilateral air exchange. ABDOMEN: Soft and nontender. EXTREMITIES: No edema. No calf swelling. No tenderness. No acute ischemia. Surgical site is on the orthopedic dressing and is . No sign of or complication. FOXPRO DEVELOPER: Essentially unchanged. DIAGNOSTIC DATA: Available diagnostic data reviewed. PLAN: Overall, the patient's general medical condition is stable. The patient's chest x-ray showed some non-contusive abnormality. We will repeat the chest x-ray today. Functionally, we will have physical therapy evaluation. If the patient gets clear, the patient might go home. Case and plan discussed with the patient. Guillaume Almonte MD
[2017-09-13 10:24] LABS: SQUAMOUS EPITHIAL < 1 /hpf (0-5); URINE BILIRUBIN NEGATIVE (NEGATIVE); URINE BLOOD SMALL (NEGATIVE); URINE CLARITY CLEAR (Clear); URINE COLOR YELLOW (YELLOW); URINE GLUCOSE (UA) NEG (Normal); URINE LEUKOCYTE ESTERASE NEG Leu/uL (Negative); URINE NITRATE NEGATIVE (NEGATIVE); URINE PROTEIN NEGATIVE (NEGATIVE); URINE UROBILINOGEN 0.2-1.0 mg/dL (0.2-1.0)
--- NOTE | 2017-09-13 10:55 | CP.PCM.PN ---
Subjective - Date & Time of Evaluation Date of Evaluation: 09/13/17 Time of Evaluation: 07:30 - Subjective Subjective: Patient seen and examined at bedside comfortable. Pain is well controlled. She was admitted overnight for repeat CXR and void challenge this AM due to difficulty voiding last night. Tolerating diet will. No new complaints. Objective - Vital Signs/Intake and Output Vital Signs (last 24 hours): Temp Pulse Resp BP Pulse Ox 98.4 F 52 L 20 111/67 94 L 09/13/17 08:37 09/13/17 08:37 09/13/17 08:37 09/13/17 08:37 09/13/17 08:37 - Medications Medications: Current Medications Enoxaparin Sodium (Lovenox) 40 mg SC DAILY ANGELO PRN Reason: Protocol Last Admin: 09/13/17 09:57 Dose: 40 mg Hydromorphone HCl (Dilaudid) 0.5 mg IVP Q15MIN ANGELO Stop: 09/13/17 17:16 Last Admin: 09/12/17 17:15 Dose: 0.5 mg Sodium Chloride (Sodium Chloride 0.9%) 1,000 mls @ 100 mls/hr IV .Q10H ANGELO Lactated Ringer's (Lactated Ringer's) 1,000 mls @ 75 mls/hr IV .[id number] ANGELO Last Admin: 09/12/17 14:04 Dose: 200 mls Morphine Sulfate (Morphine) 2 mg IVP Q6 PRN PRN Reason: Pain, moderate (4-7) Last Admin: 09/12/17 23:36 Dose: 2 mg Oxycodone/Acetaminophen (Percocet 5/325 Mg Tab) 1 tab PO Q4 PRN PRN Reason: Pain, moderate (4-7) Stop: 09/15/17 10:45 - Labs Labs: 09/13/17 06:00 09/13/17 06:00 PT 10.8 Seconds (9.8-13.1) 09/11/17 19:30 INR 1.0 (0.9-1.2) 09/11/17 19:30 APTT 33.9 Seconds (25.6-37.1) 09/11/17 19:30 - Constitutional Appears: No Acute Distress - Extremities Exam Additional comments: Right wrist: Intact in volar splint, minimal swelling, sensation intact MN/UN/RN , motor intact MN/UN/AIN/PIN, intact capillary refill, compartments soft - Neurological Exam Neurological Exam: Alert, Awake, Oriented x3 - Psychiatric Exam Psychiatric exam: Normal Affect, Normal Mood Assessment and Plan (1) Closed fracture of right distal radius Assessment & Plan: Patient is POD#1 from R wrist ORIF -pain control -Keep RUE elevated -PT/OT ambulation training -care as per medicine -clear to D/c home from ortho standpoint -case and plan d/w Dr. Linares in agreement Status: Acute
--- NOTE | 2017-09-13 11:12 | CP.PCM.PN ---
Subjective - Date & Time of Evaluation Date of Evaluation: 09/13/17 Time of Evaluation: 09:00 - Subjective Subjective: NO CHEST PAIN OR SOB JUST HAS PAIN AT SURGICAL SITE Objective - Vital Signs/Intake and Output Vital Signs (last 24 hours): Temp Pulse Resp BP Pulse Ox 98.4 F 52 L 20 111/67 94 L 09/13/17 08:37 09/13/17 08:37 09/13/17 08:37 09/13/17 08:37 09/13/17 08:37 - Medications Medications: Current Medications Enoxaparin Sodium (Lovenox) 40 mg SC DAILY ANGELO PRN Reason: Protocol Last Admin: 09/13/17 09:57 Dose: 40 mg Hydromorphone HCl (Dilaudid) 0.5 mg IVP Q15MIN [facility] Stop: 09/13/17 17:16 Last Admin: 09/12/17 17:15 Dose: 0.5 mg Sodium Chloride (Sodium Chloride 0.9%) 1,000 mls @ 100 mls/hr IV .Q10H [facility] Lactated Ringer's (Lactated Ringer's) 1,000 mls @ 75 mls/hr IV .[id number] [facility] Last Admin: 09/12/17 14:04 Dose: 200 mls Morphine Sulfate (Morphine) 2 mg IVP Q6 PRN PRN Reason: Pain, moderate (4-7) Last Admin: 09/12/17 23:36 Dose: 2 mg Oxycodone/Acetaminophen (Percocet 5/325 Mg Tab) 1 tab PO Q4 PRN PRN Reason: Pain, moderate (4-7) Stop: 09/15/17 10:45 - Labs Labs: 09/13/17 06:00 09/13/17 06:00 PT 10.8 Seconds (9.8-13.1) 09/11/17 19:30 INR 1.0 (0.9-1.2) 09/11/17 19:30 APTT 33.9 Seconds (25.6-37.1) 09/11/17 19:30 - Respiratory Exam Respiratory Exam: Clear to Ausculation Bilateral - Cardiovascular Exam Cardiovascular Exam: REGULAR RHYTHM, +S1, +S2, Murmur - Extremities Exam Additional comments: NO LE EDEMA - Additional Findings Additional findings: SURGICAL NOTE REVIEWED Assessment and Plan - Assessment and Plan (Free Text) Assessment: FALL WITH RIGHT WRIST FRACTURE HYPERTENSION MODERATE AORTIC STENOSIS Plan: PATIENT WAS ADMITTED FOR PAIN MANAGEMENT WILL OBSERVE BLOOD PRESSURE AN RESUME MEDICATIONS NEEDED
--- NOTE | 2017-09-13 13:28 | CT ---
PROCEDURE: CT Chest without contrast HISTORY: Infiltrates per cxr, r/o pneumonia COMPARISON: None. TECHNIQUE: Contiguous axial images were obtained through the chest without intravenous contrast enhancement. Sagittal and coronal reconstructions were performed. Radiation dose (DLP): 411.8 mGy-cm. This CT exam was performed using one or more of the following dose reduction techniques: Automated exposure control, adjustment of the mA and/or kV according to patient size, and/or use of iterative reconstruction technique. FINDINGS: LUNGS: Biapical scarring. Nodular densities in the bilateral upper lobes as well as right lower lobe, with the most concentrated areas visualized in the posterior right upper lobe. Visualized airway clear. MEDIASTINUM: Calcific atherosclerosis. No aneurysm. Normal sized heart. Main pulmonary artery unremarkable. No vascular congestion. No lymphadenopathy. PLEURA: No pleural fluid. No pneumothorax. BONES: No fracture. No destructive lesion. UPPER ABDOMEN: Grossly unremarkable. OTHER FINDINGS: None. IMPRESSION: Bilateral nodular densities as described above, likely infectious/inflammatory.
--- NOTE | 2017-09-13 14:25 | PQF GENQUE ---
Dr. Almonte, 2 queries: 1. Is there an associated diagnosis to go along with the following documentation ? 2. If yes is the Condition: POA? ER addendum note: CXR Early infiltrates are questioned at the superior right lung zone as well as the medial a right base. LInear atelectasis medial left base. Further clinical correlation is advised. . Will d/w resident caring for his patients. 09/12 CXR: Impression: Early infiltrates are questioned at the superior right lung zone as well as the medial right base. Linear atelectasis medial left base. Further clinical correlation is advised. 09/13 CXR: Impression: No significant interval change. 09/14: CT Chest:IMPRESSION: Bilateral nodular densities as described above, likely infectious/inflammatory. See full report in the EMR 09/12: V/S tab in the EMR: Temp.: 99.8->100.3->99.9 WBC:10.7->11.9 IV : Levofloxacin This form is a permanent part of the medical record Clarification of your documentation is requested to better reflect the severity of illness and intensity of treatment of your patient. Indicators present [] Specify: [] [] Specify: [] [] Specify: [] [] Specify: [] Location in the medical record that reflects the above clinical findings: [] Treatment Provided: [] PHYSICIAN'S RESPONSE Based on your medical judgment of the clinical indicators outlined above please clarify the following: [] Practitioner response [] If unable to determine, please check the box, sign and date. Present On Admission (POA) Indicator: [] Present at the time of admission [] Not present at the time of admission [] Clinically Undetermined In responding to this query, please exercise your independent professional judgment. The fact that a question is asked does not imply that any particular answer is desired or expected. Thank you for your clarification on this documentation. If you have any questions please call. * Thank you, Joan Stratton RN ext . #[phone] MTDD
[2017-09-13] MEDS: Brimonidine 0.2% 50 DROP/5 ML BOTTLE OU SCH (17:26)
[2017-09-13] MEDS: levoFLOXacin 500 mg in D5W 500 MG/100 ML BAG IVPB SCH (17:33)
[2017-09-13] MEDS ORDERED: Patient's Own Med (Brimonidine Tartrate/Timolol [Combigan 0.2%-0.5% Eye Drops] 1 DROP) EACHEYE SCH (21:00)
[2017-09-14] MEDS ORDERED: Sodium Chloride 3% for Inhalation 4 ML VIAL.NEB IH PRN (00:21)
[2017-09-14 06:38] LABS: HEMOGLOBIN 12.6 g/dL (12.0-16.0); MEAN CORPUSCULAR HEMOGLOBIN 32.1 pg (27.0-31.0); MEAN CORPUSCULAR HGB CONC 34.5 g/dL (33.0-37.0); RBC 3.92 Mil/uL (3.80-5.20); RED CELL DISTRIBUTION WIDTH 13.7 % (11.5-14.5); WHITE BLOOD COUNT 10.9 K/uL (4.8-10.8)
[2017-09-14 06:44] LABS: BLOOD UREA NITROGEN 7 mg/dl (7-17); CALCIUM 8.8 mg/dL (8.4-10.2); GFR AFRICAN-AMERICAN > 60; GFR NON-AFRICAN AMERICAN > 60
--- NOTE | 2017-09-14 07:38 | CP.PCM.PN ---
Subjective - Date & Time of Evaluation Date of Evaluation: 09/14/17 Time of Evaluation: 07:40 - Subjective Subjective: Patient evaluated with Dr Almonte during morning rounds. Stable. No acute distress. Feels better. Denies vomiting, nausea, cough, SOB or CP. Afebrile. CT infiltrates noted. R/arm pain controlled Objective - Vital Signs/Intake and Output Vital Signs (last 24 hours): Temp Pulse Resp BP Pulse Ox 99.1 F 76 18 134/71 96 09/14/17 00:18 09/14/17 00:18 09/14/17 00:18 09/14/17 00:18 09/14/17 00:18 - Medications Medications: Current Medications Amlodipine Besylate (Norvasc) 5 mg PO DAILY [facility] Brimonidine Tartrate (Alphagan 0.2% Opht) 1 drop OU TID [facility] Last Admin: 09/13/17 17:26 Dose: 1 drop Enoxaparin Sodium (Lovenox) 40 mg SC DAILY [facility] PRN Reason: Protocol Last Admin: 09/13/17 09:57 Dose: 40 mg Famotidine (Pepcid) 20 mg PO DAILY [facility] Last Admin: 09/13/17 14:00 Dose: 20 mg Sodium Chloride (Sodium Chloride 0.9%) 1,000 mls @ 100 mls/hr IV .Q10H [facility] Lactated Ringer's (Lactated Ringer's) 1,000 mls @ 75 mls/hr IV .[id number] [facility] Last Admin: 09/12/17 14:04 Dose: 200 mls Levofloxacin/Dextrose (Levaquin 500mg) 500 mg in 100 mls @ 100 mls/hr IVPB DAILY [facility] PRN Reason: Protocol Last Admin: 09/13/17 17:33 Dose: 100 mls/hr Metronidazole (Flagyl 500mg/100ml Ns) 100 mls @ 100 mls/hr IVPB Q8 [facility] PRN Reason: Protocol Metoprolol Tartrate (Lopressor) 50 mg PO Q12 [facility] Last Admin: 09/13/17 21:24 Dose: 50 mg Morphine Sulfate (Morphine) 2 mg IVP Q6 PRN PRN Reason: Pain, moderate (4-7) Last Admin: 09/12/17 23:36 Dose: 2 mg Oxycodone/Acetaminophen (Percocet 5/325 Mg Tab) 1 tab PO Q4 PRN PRN Reason: Pain, moderate (4-7) Stop: 09/15/17 10:45 Sertraline HCl (Zoloft) 25 mg PO HS [facility] Last Admin: 09/13/17 21:25 Dose: 25 mg Timolol Maleate (Timoptic 0.5% Ophth Soln) 1 drop OU BID [facility] Last Admin: 09/13/17 17:38 Dose: 1 drop - Labs Labs: 09/14/17 05:00 09/14/17 05:00 PT 10.8 Seconds (9.8-13.1) 09/11/17 19:30 INR 1.0 (0.9-1.2) 09/11/17 19:30 APTT 33.9 Seconds (25.6-37.1) 09/11/17 19:30 - Constitutional Appears: Non-toxic, No Acute Distress - Eye Exam Eye Exam: EOMI - ENT Exam ENT Exam: Mucous Membranes Moist - Respiratory Exam Respiratory Exam: NORMAL BREATHING PATTERN. absent: Rales, Respiratory Distress - Cardiovascular Exam Cardiovascular Exam: REGULAR RHYTHM, +S1, +S2. absent: Gallop - GI/Abdominal Exam GI & Abdominal Exam: Soft, Normal Bowel Sounds. absent: Tenderness - Extremities Exam Extremities Exam: Normal Capillary Refill (No sings of neurovascular compromise RUE. Non wt bearing R/arm. ) - Neurological Exam Neurological Exam: Alert, Awake - Psychiatric Exam Psychiatric exam: Normal Mood - Skin Skin Exam: Normal Color, Warm Assessment and Plan - Assessment and Plan (Free Text) Assessment: Radial Fx S/P ORIF Pain controlled Cleared by Ortho for DC PT/OT Lung nodules/infiltrates Present on admission CT confirmed Afebrile Quantiferon ordered as well as CPT/PEP C/W Abx F/U Pulm consult.
[2017-09-14] MEDS: Brimonidine 0.2% 50 DROP/5 ML BOTTLE OU SCH ×3 (08:32→16:52)
[2017-09-14] MEDS: Enoxaparin 40 mg Syringe SC SCH (08:32)
[2017-09-14] MEDS: metroNIDAZOLE 500mg/100ml NS 100 ML IVPB SCH ×2 (08:39→16:50)
[2017-09-14] MEDS: levoFLOXacin 500 mg in D5W 500 MG/100 ML BAG IVPB SCH (08:40)
--- NOTE | 2017-09-14 09:42 | CP.PCM.PN ---
Subjective - Date & Time of Evaluation Date of Evaluation: 09/14/17 Time of Evaluation: 08:00 - Subjective Subjective: Patient was seen and examined at bedside sitting up comfortable. Her pain is well controlled. Tolerating diet well. Able to void, negative BM. Stayed overnight for pulmonology consult due to infiltrates seen on chest CT. No acute events overnight. Objective - Vital Signs/Intake and Output Vital Signs (last 24 hours): Temp Pulse Resp BP Pulse Ox 99.1 F 76 18 146/62 94 L 09/14/17 08:01 09/14/17 08:33 09/14/17 08:01 09/14/17 08:33 09/14/17 08:01 - Medications Medications: Current Medications Amlodipine Besylate (Norvasc) 5 mg PO DAILY [facility] Last Admin: 09/14/17 08:33 Dose: 5 mg Brimonidine Tartrate (Alphagan 0.2% Opht) 1 drop OU TID [facility] Last Admin: 09/14/17 08:32 Dose: 1 drop Enoxaparin Sodium (Lovenox) 40 mg SC DAILY [facility] PRN Reason: Protocol Last Admin: 09/14/17 08:32 Dose: 40 mg Famotidine (Pepcid) 20 mg PO DAILY [facility] Last Admin: 09/14/17 08:33 Dose: 20 mg Sodium Chloride (Sodium Chloride 0.9%) 1,000 mls @ 100 mls/hr IV .Q10H [facility] Lactated Ringer's (Lactated Ringer's) 1,000 mls @ 75 mls/hr IV .[id number] [facility] Last Admin: 09/12/17 14:04 Dose: 200 mls Levofloxacin/Dextrose (Levaquin 500mg) 500 mg in 100 mls @ 100 mls/hr IVPB DAILY [facility] PRN Reason: Protocol Last Admin: 09/14/17 08:40 Dose: 100 mls/hr Metronidazole (Flagyl 500mg/100ml Ns) 100 mls @ 100 mls/hr IVPB Q8 [facility] PRN Reason: Protocol Last Admin: 09/14/17 08:39 Dose: 100 mls/hr Metoprolol Tartrate (Lopressor) 50 mg PO Q12 [facility] Last Admin: 09/14/17 08:33 Dose: 50 mg Morphine Sulfate (Morphine) 2 mg IVP Q6 PRN PRN Reason: Pain, moderate (4-7) Last Admin: 09/12/17 23:36 Dose: 2 mg Oxycodone/Acetaminophen (Percocet 5/325 Mg Tab) 1 tab PO Q4 PRN PRN Reason: Pain, moderate (4-7) Stop: 09/15/17 10:45 Sertraline HCl (Zoloft) 25 mg PO HS [facility] Last Admin: 09/13/17 21:25 Dose: 25 mg Timolol Maleate (Timoptic 0.5% Ophth Soln) 1 drop OU BID [facility] Last Admin: 09/14/17 08:33 Dose: 1 drop - Labs Labs: 09/14/17 05:00 09/14/17 05:00 PT 10.8 Seconds (9.8-13.1) 09/11/17 19:30 INR 1.0 (0.9-1.2) 09/11/17 19:30 APTT 33.9 Seconds (25.6-37.1) 09/11/17 19:30 - Constitutional Appears: No Acute Distress - Eye Exam Eye Exam: Normal appearance - ENT Exam ENT Exam: Mucous Membranes Moist - Respiratory Exam Respiratory Exam: NORMAL BREATHING PATTERN - Extremities Exam Additional comments: Right wrist: Intact in volar splint, moderate swelling of fingers, sensation intact MN/UN/RN, motor intact MN/UN/AIN/PIN, intact capillary refill, compartments soft - Neurological Exam Neurological Exam: Alert, Awake, Oriented x3 - Psychiatric Exam Psychiatric exam: Normal Affect, Normal Mood Assessment and Plan (1) Closed fracture of right distal radius Assessment & Plan: Patient is POD#2 from R wrist ORIF -pain control -Keep RUE elevated -PT/OT ambulation training -clear to D/c home from ortho standpoint -case and plan d/w Dr. Linares in agreement Status: Acute
--- NOTE | 2017-09-14 10:44 | CP.PCM.PN ---
Subjective - Date & Time of Evaluation Date of Evaluation: 09/04/17 Time of Evaluation: 09:30 - Subjective Subjective: NO CHEST PAIN OR SOB Objective - Vital Signs/Intake and Output Vital Signs (last 24 hours): Temp Pulse Resp BP Pulse Ox 99.1 F 76 18 146/62 94 L 09/14/17 08:01 09/14/17 08:33 09/14/17 08:01 09/14/17 08:33 09/14/17 08:01 - Medications Medications: Current Medications Amlodipine Besylate (Norvasc) 5 mg PO DAILY [facility] Last Admin: 09/14/17 08:33 Dose: 5 mg Brimonidine Tartrate (Alphagan 0.2% Opht) 1 drop OU TID [facility] Last Admin: 09/14/17 08:32 Dose: 1 drop Enoxaparin Sodium (Lovenox) 40 mg SC DAILY [facility] PRN Reason: Protocol Last Admin: 09/14/17 08:32 Dose: 40 mg Famotidine (Pepcid) 20 mg PO DAILY [facility] Last Admin: 09/14/17 08:33 Dose: 20 mg Sodium Chloride (Sodium Chloride 0.9%) 1,000 mls @ 100 mls/hr IV .Q10H [facility] Lactated Ringer's (Lactated Ringer's) 1,000 mls @ 75 mls/hr IV .[id number] [facility] Last Admin: 09/12/17 14:04 Dose: 200 mls Levofloxacin/Dextrose (Levaquin 500mg) 500 mg in 100 mls @ 100 mls/hr IVPB DAILY [facility] PRN Reason: Protocol Last Admin: 09/14/17 08:40 Dose: 100 mls/hr Metronidazole (Flagyl 500mg/100ml Ns) 100 mls @ 100 mls/hr IVPB Q8 [facility] PRN Reason: Protocol Last Admin: 09/14/17 08:39 Dose: 100 mls/hr Metoprolol Tartrate (Lopressor) 50 mg PO Q12 [facility] Last Admin: 09/14/17 08:33 Dose: 50 mg Morphine Sulfate (Morphine) 2 mg IVP Q6 PRN PRN Reason: Pain, moderate (4-7) Last Admin: 09/12/17 23:36 Dose: 2 mg Oxycodone/Acetaminophen (Percocet 5/325 Mg Tab) 1 tab PO Q4 PRN PRN Reason: Pain, moderate (4-7) Stop: 09/15/17 10:45 Sertraline HCl (Zoloft) 25 mg PO HS [facility] Last Admin: 09/13/17 21:25 Dose: 25 mg Timolol Maleate (Timoptic 0.5% Ophth Soln) 1 drop OU BID [facility] Last Admin: 09/14/17 08:33 Dose: 1 drop - Labs Labs: 09/14/17 05:00 09/14/17 05:00 PT 10.8 Seconds (9.8-13.1) 09/11/17 19:30 INR 1.0 (0.9-1.2) 09/11/17 19:30 APTT 33.9 Seconds (25.6-37.1) 09/11/17 19:30 - Respiratory Exam Additional comments: SLIGHTLY COARSE BREATH SOUNDS - Cardiovascular Exam Cardiovascular Exam: REGULAR RHYTHM, +S1, +S2, Murmur - Extremities Exam Additional comments: NO SIGNIFICANT LE EDEMA - Additional Findings Additional findings: CXR REPORTS NOTED CT SCAN OF CHEST REPORT REVIEWED WITH BIAPICAL AND RIGHT BASILAR LUNG NODULES Assessment and Plan - Assessment and Plan (Free Text) Assessment: S/P FALL AND SURGICAL REPAIR OF RIGHT WRIST FRACTURE HYPERTENSION CT SCAN SHOWING LUNG NODULES AND CXR READ ATELECTASIS/INFILTRATES Plan: THE PATIENT IS ON METOPROLOL, AMLODIPINE AND LOVENOX ANTIBIOTICS WERE STARTED PULMONARY TO SEE
[2017-09-14] MEDS: Sodium Chloride 0.9% 1,000 ML IV SCH ×3 (11:50→22:34)
--- NOTE | 2017-09-14 12:03 | RAD ---
PROCEDURE: Intraoperative Fluoroscopy. HISTORY: RIGHT WRIST ORIF FINDINGS: Fluoroscopic assistance was provided for ORIF right wrist. Please refer to the operative report from [facility]. 8.6 seconds of fluoro time was utilized with a cumulative of DLP dose of 0.16 mGy.
[2017-09-15] MEDS: metroNIDAZOLE 500mg/100ml NS 100 ML IVPB SCH ×3 (00:44→16:33)
[2017-09-15 08:27] LABS: BASO % 0.5 % (0.0-2.0); EOS # 0.1 K/uL (0.0-0.7); EOS % 0.7 % (0.0-4.0); HEMOGLOBIN 12.2 g/dL (12.0-16.0); LYMPH # 2.2 K/uL (1.0-4.3); LYMPH % 29.5 % (20.0-40.0); MEAN CELL VOLUME 94.5 fl (81.0-99.0); MEAN CORPUSCULAR HEMOGLOBIN 31.9 pg (27.0-31.0); MEAN CORPUSCULAR HGB CONC 33.8 g/dL (33.0-37.0); MEAN PLATELET VOLUME 10.8 fl (7.2-11.7); MONO # 1.2 K/uL (0.0-0.8); MONO % 15.7 % (0.0-10.0); NEUT # 4.1 K/uL (1.8-7.0); NEUT % 53.6 % (50.0-75.0); RBC 3.81 Mil/uL (3.80-5.20); RED CELL DISTRIBUTION WIDTH 13.8 % (11.5-14.5); WHITE BLOOD COUNT 7.6 K/uL (4.8-10.8)
--- NOTE | 2017-09-15 08:33 | PN ---
DATE: 09/15/2017 SUBJECTIVE: The patient is seen and examined. Interim events noted. Consults noted and appreciated. Orthopedic followup and intervention noted and appreciated. The patient remains in regular medical floor . The patient has underlying dementia and is not able to provide informative history or review of systems. Denies any chest pain, coughing or shortness of breath. Arm pain is adequately controlled. PHYSICAL EXAMINATION: GENERAL: The patient is in no acute distress. VITAL SIGNS: Stable. HEART: S1 and S2, normal and regular. LUNGS: Good bilateral air exchange. ABDOMEN: Soft and nontender. EXTREMITIES: The patient is status post surgery. No sign of acute complication. No edema. No calf swelling, no tenderness. No acute ischemia. 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 DIAGNOSTIC DATA: Available diagnostic data reviewed. Overall, the patient's general medical condition is stable. Plan as ordered. Guillaume Almonte MD
[2017-09-15] MEDS: Brimonidine 0.2% 50 DROP/5 ML BOTTLE OU SCH ×3 (08:35→16:33)
[2017-09-15] MEDS: Enoxaparin 40 mg Syringe SC SCH (08:36)
[2017-09-15] MEDS: Sodium Chloride 0.9% 1,000 ML IV SCH ×2 (08:37→16:33)
[2017-09-15 08:42] LABS: BLOOD UREA NITROGEN 10 mg/dl (7-17); CALCIUM 8.7 mg/dL (8.4-10.2); GFR AFRICAN-AMERICAN > 60; GFR NON-AFRICAN AMERICAN > 60
[2017-09-15] MEDS: levoFLOXacin 500 mg in D5W 500 MG/100 ML BAG IVPB SCH (08:42)
--- NOTE | 2017-09-15 18:13 | CP.PCM.PN ---
Subjective - Date & Time of Evaluation Date of Evaluation: 09/15/17 Time of Evaluation: 06:00 - Subjective Subjective: S- encouner accomplished in prescence of pt daughter/no complaints Objective - Vital Signs/Intake and Output Vital Signs (last 24 hours): Temp Pulse Resp BP Pulse Ox 99.2 F 72 20 124/68 94 L 09/15/17 16:20 09/15/17 16:20 09/15/17 16:20 09/15/17 16:20 09/15/17 16:20 - Medications Medications: Current Medications Amlodipine Besylate (Norvasc) 5 mg PO DAILY [facility] Last Admin: 09/15/17 08:36 Dose: 5 mg Brimonidine Tartrate (Alphagan 0.2% Opht) 1 drop OU TID [facility] Last Admin: 09/15/17 16:33 Dose: 1 drop Enoxaparin Sodium (Lovenox) 40 mg SC DAILY [facility] PRN Reason: Protocol Last Admin: 09/15/17 08:36 Dose: 40 mg Famotidine (Pepcid) 20 mg PO DAILY [facility] Last Admin: 09/15/17 08:36 Dose: 20 mg Sodium Chloride (Sodium Chloride 0.9%) 1,000 mls @ 100 mls/hr IV .Q10H [facility] Last Admin: 09/15/17 16:33 Dose: 100 mls/hr Levofloxacin/Dextrose (Levaquin 500mg) 500 mg in 100 mls @ 100 mls/hr IVPB DAILY [facility] PRN Reason: Protocol Last Admin: 09/15/17 08:42 Dose: 100 mls/hr Metronidazole (Flagyl 500mg/100ml Ns) 100 mls @ 100 mls/hr IVPB Q8 [facility] PRN Reason: Protocol Last Admin: 09/15/17 16:33 Dose: 100 mls/hr Metoprolol Tartrate (Lopressor) 50 mg PO Q12 [facility] Last Admin: 09/15/17 08:36 Dose: 50 mg Morphine Sulfate (Morphine) 2 mg IVP Q6 PRN PRN Reason: Pain, moderate (4-7) Last Admin: 09/12/17 23:36 Dose: 2 mg Sertraline HCl (Zoloft) 25 mg PO HS [facility] Last Admin: 09/14/17 22:32 Dose: 25 mg Timolol Maleate (Timoptic 0.5% Ophth Soln) 1 drop OU BID [facility] Last Admin: 09/15/17 16:34 Dose: 1 drop - Labs Labs: 09/15/17 06:37 09/15/17 06:37 PT 10.8 Seconds (9.8-13.1) 09/11/17 19:30 INR 1.0 (0.9-1.2) 09/11/17 19:30 APTT 33.9 Seconds (25.6-37.1) 09/11/17 19:30 - Skin Additional comments: Obj - R upper ext cast intact N/V intact no gross defcitis Xrays- excellent position of construct Assessment and Plan - Assessment and Plan (Free Text) Assessment: A- s/p ORIF distal radius fx P- orthopedically stable
[2017-09-16] MEDS: metroNIDAZOLE 500mg/100ml NS 100 ML IVPB SCH ×3 (00:17→17:59)
[2017-09-16 07:13] LABS: HEMOGLOBIN 12.3 g/dL (12.0-16.0); MEAN CELL VOLUME 94.2 fl (81.0-99.0); MEAN CORPUSCULAR HEMOGLOBIN 31.9 pg (27.0-31.0); MEAN CORPUSCULAR HGB CONC 33.9 g/dL (33.0-37.0); RBC 3.87 Mil/uL (3.80-5.20); RED CELL DISTRIBUTION WIDTH 13.9 % (11.5-14.5); WHITE BLOOD COUNT 6.3 K/uL (4.8-10.8)
[2017-09-16 07:39] LABS: ALBUMIN 3.3 g/dL (3.5-5.0); ALT/SGPT 20 U/L (9-52); AST/SGOT 21 U/L (14-36); BLOOD UREA NITROGEN 9 mg/dl (7-17); CALCIUM 8.8 mg/dL (8.4-10.2); GFR AFRICAN-AMERICAN > 60; GFR NON-AFRICAN AMERICAN > 60
--- NOTE | 2017-09-16 08:30 | PN ---
DATE: 09/16/2017 SUBJECTIVE: The patient is seen and examined. Interim events noted. The patient is sleepy, arousable and confused. Denies any specific complaint, no pain, and no shortness of breath or chest pain. PHYSICAL EXAMINATION: GENERAL: The patient is in no acute distress. VITAL SIGNS: Stable. HEART: S1 and S2, normal and regular. LUNGS: Good bilateral air exchange. ABDOMEN: Soft and nontender. EXTREMITIES: No edema. No calf swelling. No tenderness. No acute ischemia. CENTRAL NERVOUS SYSTEM: Exam is essentially unchanged. DIAGNOSTIC DATA: Available diagnostic data reviewed. ASSESSMENT AND PLAN: Overall, the patient's general medical condition is stable. Plan as ordered. Guillaume Almonte MD
[2017-09-16] MEDS: Brimonidine 0.2% 50 DROP/5 ML BOTTLE OU SCH ×3 (09:00→17:59)
[2017-09-16] MEDS: Enoxaparin 40 mg Syringe SC SCH (09:40)
[2017-09-16 09:50] VITALS: RESP 20
[2017-09-16] MEDS: levoFLOXacin 500 mg in D5W 500 MG/100 ML BAG IVPB SCH (10:17)
--- NOTE | 2017-09-16 12:24 | CP.PCM.PN ---
Subjective - Date & Time of Evaluation Date of Evaluation: 09/16/17 Time of Evaluation: 12:20 - Subjective Subjective: S- no complaints- s/pm ORIF R distal radius fx P- elevate R upper ext ROM to be emphasized for fingers with appropriate elevation Objective - Vital Signs/Intake and Output Vital Signs (last 24 hours): Temp Pulse Resp BP Pulse Ox 98.5 F 73 20 137/77 97 09/16/17 08:35 09/16/17 09:40 09/16/17 08:35 09/16/17 09:40 09/16/17 08:35 - Medications Medications: Current Medications Amlodipine Besylate (Norvasc) 5 mg PO DAILY [facility] Last Admin: 09/16/17 09:40 Dose: 5 mg Brimonidine Tartrate (Alphagan 0.2% Opht) 1 drop OU TID [facility] Last Admin: 09/15/17 16:33 Dose: 1 drop Famotidine (Pepcid) 20 mg PO DAILY [facility] Last Admin: 09/16/17 09:41 Dose: 20 mg Levofloxacin/Dextrose (Levaquin 500mg) 500 mg in 100 mls @ 100 mls/hr IVPB DAILY [facility] PRN Reason: Protocol Last Admin: 09/16/17 10:17 Dose: 100 mls/hr Metronidazole (Flagyl 500mg/100ml Ns) 100 mls @ 100 mls/hr IVPB Q8 [facility] PRN Reason: Protocol Last Admin: 09/16/17 09:37 Dose: 100 mls/hr Metoprolol Tartrate (Lopressor) 50 mg PO Q12 [facility] Last Admin: 09/16/17 09:39 Dose: 50 mg Morphine Sulfate (Morphine) 2 mg IVP Q6 PRN PRN Reason: Pain, moderate (4-7) Last Admin: 09/12/17 23:36 Dose: 2 mg Sertraline HCl (Zoloft) 25 mg PO HS [facility] Last Admin: 09/15/17 21:43 Dose: 25 mg Timolol Maleate (Timoptic 0.5% Ophth Soln) 1 drop OU BID [facility] Last Admin: 09/16/17 09:41 Dose: 1 drop - Labs Labs: 09/16/17 05:20 09/16/17 05:20 PT 10.8 Seconds (9.8-13.1) 02/20/18 19:30 INR 1.0 (0.9-1.2) 09/11/17 19:30 APTT 33.9 Seconds (25.6-37.1) 09/11/17 19:30
--- NOTE | 2017-09-16 12:55 | CP.PCM.PN ---
Subjective - Date & Time of Evaluation Date of Evaluation: 09/16/17 Time of Evaluation: 10:30 - Subjective Subjective: NO NEW COMPLAINTS Objective - Vital Signs/Intake and Output Vital Signs (last 24 hours): Temp Pulse Resp BP Pulse Ox 98.5 F 73 20 137/77 97 09/16/17 08:35 09/16/17 09:40 09/16/17 08:35 09/16/17 09:40 09/16/17 08:35 - Medications Medications: Current Medications Amlodipine Besylate (Norvasc) 5 mg PO DAILY [facility] Last Admin: 09/16/17 09:40 Dose: 5 mg Brimonidine Tartrate (Alphagan 0.2% Opht) 1 drop OU TID [facility] Last Admin: 09/15/17 16:33 Dose: 1 drop Famotidine (Pepcid) 20 mg PO DAILY [facility] Last Admin: 09/16/17 09:41 Dose: 20 mg Levofloxacin/Dextrose (Levaquin 500mg) 500 mg in 100 mls @ 100 mls/hr IVPB DAILY [facility] PRN Reason: Protocol Last Admin: 09/16/17 10:17 Dose: 100 mls/hr Metronidazole (Flagyl 500mg/100ml Ns) 100 mls @ 100 mls/hr IVPB Q8 [facility] PRN Reason: Protocol Last Admin: 09/16/17 09:37 Dose: 100 mls/hr Metoprolol Tartrate (Lopressor) 50 mg PO Q12 [facility] Last Admin: 09/16/17 09:39 Dose: 50 mg Morphine Sulfate (Morphine) 2 mg IVP Q6 PRN PRN Reason: Pain, moderate (4-7) Last Admin: 09/12/17 23:36 Dose: 2 mg Sertraline HCl (Zoloft) 25 mg PO HS [facility] Last Admin: 09/15/17 21:43 Dose: 25 mg Timolol Maleate (Timoptic 0.5% Ophth Soln) 1 drop OU BID [facility] Last Admin: 09/16/17 09:41 Dose: 1 drop - Labs Labs: 09/16/17 05:20 09/16/17 05:20 PT 10.8 Seconds (9.8-13.1) 09/11/17 19:30 INR 1.0 (0.9-1.2) 09/11/17 19:30 APTT 33.9 Seconds (25.6-37.1) 09/11/17 19:30 - Respiratory Exam Additional comments: COARSE BREATH SOUNDS - Cardiovascular Exam Cardiovascular Exam: REGULAR RHYTHM, +S1, +S2 Assessment and Plan - Assessment and Plan (Free Text) Assessment: FALL AND SURGICAL REPAIR OF RIGHT WRIST FRACTURE HYPERTENSION PULMONARY NODULES AND ATELECTASIS/PNEUMONIA Plan: CONTINUE ANTIBIOTICS, METOPROLOL AND AMLODIPINE
--- NOTE | 2017-09-16 14:36 | CP.PCM.CON ---
History of Present Illness - History of Present Illness History of Present Illness: Called to see this patient for Bilateral Pneumonia. Patient was seen yesterday morning, and consult was written by me last night. Don't know whey it's not in the system. Never smoker. No ETOH. Admitted for Rt radial fx s/p surgery. Remains Afebrile VSS. O2 sat on RA was 98%. 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 Minimal cough. No WBC, and sats of 98% on RA make the dx of pneumonia doubtful. There may be some small patches in the mid lung and RLL zones. S/ No complains. Difficult communication since patient is very hard of hearing. Head Neg adeno, Pos MARC Heart RRR Ns1s2 Lungs some crackles which changed with coughing. Bilateral air entry. Neuro: GNF I would cont Abx for full 10 day course. Patient can be transferred to Rehab if repeat x-ray has not worsened. Abx can be changed to po. Unable to collect any quality sputum. DVT PX> Past Patient History - Past Medical History & Family History Past Medical History?: Yes Past Family History: Reviewed and not pertinent - Past Social History Alcohol: None Drugs: Denies - CARDIAC Hx Hypertension: Yes - MUSCULOSKELETAL/RHEUMATOLOGICAL Hx Osteoporosis: Yes - PSYCHIATRIC Hx Substance Use: No - SURGICAL HISTORY Hx Cholecystectomy: Yes - ANESTHESIA Hx Anesthesia: Yes Hx Anesthesia Reactions: No Meds Home Medications: Home Medication List Medication Instructions Recorded Confirmed Type oxyCODONE/Acetaminophen [Percocet 1 tab PO Q4 PRN #30 tab 09/12/17 Rx 5/325 mg Tab] Allergies/Adverse Reactions: Allergies Allergy/AdvReac Type Severity Reaction Status Date / Time No Known Allergies Allergy Verified 09/11/17 16:36 - Medications Medications: Current Medications Amlodipine Besylate (Norvasc) 5 mg PO DAILY [facility] Last Admin: 09/16/17 09:40 Dose: 5 mg Brimonidine Tartrate (Alphagan 0.2% Opht) 1 drop OU TID [facility] Last Admin: 09/15/17 16:33 Dose: 1 drop Famotidine (Pepcid) 20 mg PO DAILY [facility] Last Admin: 09/16/17 09:41 Dose: 20 mg Levofloxacin/Dextrose (Levaquin 500mg) 500 mg in 100 mls @ 100 mls/hr IVPB DAILY [facility] PRN Reason: Protocol Last Admin: 09/16/17 10:17 Dose: 100 mls/hr Metronidazole (Flagyl 500mg/100ml Ns) 100 mls @ 100 mls/hr IVPB Q8 [facility] PRN Reason: Protocol Last Admin: 09/16/17 09:37 Dose: 100 mls/hr Metoprolol Tartrate (Lopressor) 50 mg PO Q12 [facility] Last Admin: 09/16/17 09:39 Dose: 50 mg Morphine Sulfate (Morphine) 2 mg IVP Q6 PRN PRN Reason: Pain, moderate (4-7) Last Admin: 09/12/17 23:36 Dose: 2 mg Sertraline HCl (Zoloft) 25 mg PO HS [facility] Last Admin: 09/15/17 21:43 Dose: 25 mg Timolol Maleate (Timoptic 0.5% Oph Soln) 1 drop OU BID [facility] Last Admin: 09/16/17 09:41 Dose: 1 drop Results - Vital Signs Recent Vital Signs: Last Vital Signs Temp 98.5 F 09/16/17 08:35 Pulse 73 09/16/17 09:40 Resp 20 09/16/17 08:35 BP 137/77 09/16/17 09:40 Pulse Ox 97 09/16/17 08:35 - Labs Result Diagrams: 09/16/17 05:20 09/16/17 05:20 Labs: Laboratory Results - last 24 hr 09/16/17 09/16/17 05:20 05:20 WBC 6.3 RBC 3.87 Hgb 12.3 Hct 36.5 MCV 94.2 MCH 31.9 H MCHC 33.9 RDW 13.9 Plt Count 199 Sodium 139 Potassium 4.1 Chloride 101 Carbon Dioxide 25 Anion Gap 17 BUN 9 Creatinine 0.5 L Est GFR ( Amer) > 60 Est GFR (Non-Af Amer) > 60 Random Glucose 117 H Calcium 8.8 Total Bilirubin 0.5 AST 21 ALT 20 Alkaline Phosphatase 65 Total Protein 6.6 Albumin 3.3 L Globulin 3.4 Albumin/Globulin Ratio 1.0
--- NOTE | 2017-09-16 17:45 | RAD ---
HISTORY: md order COMPARISON: Chest radiograph 09/13/2017 TECHNIQUE: Chest PA and lateral FINDINGS: LUNGS: Limited patchy infiltrate seen at the right apex and mid left lung zone laterally with remaining lung louie clear. Right apical density is slightly diminished. PLEURA: No significant pleural effusion identified. No pneumothorax apparent. CARDIOVASCULAR: Normal. OSSEOUS STRUCTURES: No significant abnormalities. VISUALIZED UPPER ABDOMEN: Normal. OTHER FINDINGS: None. IMPRESSION: Marginal improvement right apical limited patchy infiltrate. Minimal mid left patchy density is unchanged.
[2017-09-17] MEDS: metroNIDAZOLE 500mg/100ml NS 100 ML IVPB SCH ×2 (00:03→09:36)
[2017-09-17 06:39] LABS: HEMOGLOBIN 12.4 g/dL (12.0-16.0); MEAN CELL VOLUME 93.8 fl (81.0-99.0); MEAN CORPUSCULAR HEMOGLOBIN 31.4 pg (27.0-31.0); MEAN CORPUSCULAR HGB CONC 33.5 g/dL (33.0-37.0); RBC 3.95 Mil/uL (3.80-5.20); RED CELL DISTRIBUTION WIDTH 13.6 % (11.5-14.5); WHITE BLOOD COUNT 5.4 K/uL (4.8-10.8)
[2017-09-17 06:55] LABS: ALBUMIN 3.4 g/dL (3.5-5.0); ALT/SGPT 27 U/L (9-52); AST/SGOT 23 U/L (14-36); BLOOD UREA NITROGEN 9 mg/dl (7-17); CALCIUM 9.1 mg/dL (8.4-10.2); GFR AFRICAN-AMERICAN > 60; GFR NON-AFRICAN AMERICAN > 60
[2017-09-17 08:07] VITALS: BP 133/67; PULSE 68; TEMP 98.5; O2SAT 96
--- NOTE | 2017-09-17 08:53 | CP.PCM.PN ---
Subjective - Date & Time of Evaluation Date of Evaluation: 09/17/17 Time of Evaluation: 08:00 - Subjective Subjective: NO CHEST PAIN DENIES SOB Objective - Vital Signs/Intake and Output Vital Signs (last 24 hours): Temp Pulse Resp BP Pulse Ox 98.5 F 68 20 133/67 96 09/17/17 08:06 09/17/17 08:06 09/17/17 08:06 09/17/17 08:06 09/17/17 08:06 - Medications Medications: Current Medications Acetaminophen (Tylenol 325mg Tab) 650 mg PO Q6 PRN PRN Reason: Pain, Mild (1-3) Last Admin: 09/16/17 20:38 Dose: 650 mg Amlodipine Besylate (Norvasc) 5 mg PO DAILY [facility] Last Admin: 09/16/17 09:40 Dose: 5 mg Brimonidine Tartrate (Alphagan 0.2% Opht) 1 drop OU TID [facility] Last Admin: 09/16/17 17:59 Dose: 1 drop Famotidine (Pepcid) 20 mg PO DAILY [facility] Last Admin: 09/16/17 09:41 Dose: 20 mg Levofloxacin/Dextrose (Levaquin 500mg) 500 mg in 100 mls @ 100 mls/hr IVPB DAILY [facility] PRN Reason: Protocol Last Admin: 09/16/17 10:17 Dose: 100 mls/hr Metronidazole (Flagyl 500mg/100ml Ns) 100 mls @ 100 mls/hr IVPB Q8 ANGELO PRN Reason: Protocol Last Admin: 09/17/17 00:03 Dose: 100 mls/hr Metoprolol Tartrate (Lopressor) 50 mg PO Q12 [facility] Last Admin: 09/16/17 20:43 Dose: 50 mg Morphine Sulfate (Morphine) 2 mg IVP Q6 PRN PRN Reason: Pain, moderate (4-7) Last Admin: 09/12/17 23:36 Dose: 2 mg Sertraline HCl (Zoloft) 25 mg PO HS [facility] Last Admin: 09/16/17 21:37 Dose: 25 mg Timolol Maleate (Timoptic 0.5% Ophth Soln) 1 drop OU BID [facility] Last Admin: 09/16/17 18:00 Dose: 1 drop - Labs Labs: 09/17/17 05:25 09/17/17 05:25 PT 10.8 Seconds (9.8-13.1) 09/11/17 19:30 INR 1.0 (0.9-1.2) 09/11/17 19:30 APTT 33.9 Seconds (25.6-37.1) 09/11/17 19:30 - Respiratory Exam Respiratory Exam: Clear to Ausculation Bilateral - Cardiovascular Exam Cardiovascular Exam: REGULAR RHYTHM, +S1, +S2 - Extremities Exam Additional comments: NO LE EDEMA - Additional Findings Additional findings: PULMONARY NOTE REVIEWED AND HE BELIEVES THAT PICTURE IS MORE OF OLD TB BUT RECOMMENDED THAT FULL 10 DAY COURSE OF ANTIBIOTICS BE GIVEN Assessment and Plan - Assessment and Plan (Free Text) Assessment: FALL WITH RIGHT WRIST FRACTURE AND SURGICAL REPAIR HYPERTENSION Plan: CONTINUE METOPROLOL AND AMLODIPINE
--- NOTE | 2017-09-17 09:11 | PN ---
DATE: 09/17/2017 SUBJECTIVE: The patient is seen and examined. Interim events noted. Consults noted and appreciated. Cardiology and Orthopedic followup and intervention noted and appreciated. The patient remains in regular medical floor. Feels okay. Still gets pain, but controlled with pain medication. No chest pain or shortness of breath. PHYSICAL EXAMINATION: GENERAL: The patient is in no acute distress. VITAL SIGNS: Stable. HEART: S1 and S2, normal and regular. LUNGS: Good bilateral air exchange. ABDOMEN: Soft and nontender. EXTREMITIES: The patient is on the surgical dressing and cast. No sign of distal complication. No edema. No calf swelling. No tenderness. No acute ischemia. CENTRAL NERVOUS SYSTEM: Exam is essentially unchanged. DIAGNOSTIC DATA: Available diagnostic data reviewed. IMPRESSION AND PLAN: Overall, the patient's general medical condition is stable. Plan as ordered. Guillaume Almonte MD
[2017-09-17] MEDS: Brimonidine 0.2% 50 DROP/5 ML BOTTLE OU SCH (09:36)
[2017-09-17] MEDS: levoFLOXacin 500 mg in D5W 500 MG/100 ML BAG IVPB SCH (09:37)
--- NOTE | 2017-09-17 11:29 | CP.PCM.PCO ---
Assessment/Plan - Assessment/Plan Assessment (Free Text): Pt stable, cleared for d/c by Dr. Vaughn. Pt has had IV abx x 5 days today. Pt will be switched to Levaquin PO x 5 more days for total of 10 days as per pulmonary consult. Pt has been cleared by PT for d/c home with services. Pt lives at home with daughter who takes care of her 12/02 per pt's son-in-law who works here. Pt seen and cleared for d/c home by Dr. Almonte. Rx given for Levaquin.
[2017-09-18 04:54] LABS: TB ANTIGEN MINUS NIL >10.00 IU/mL
== END 2017-09-17 14:16 | disposition home or self-care (01) | DRG 510 ==
LOC: H.ER 16:33 → H.ERHOLD 19:47 → H.MEDSURG1 09-12 17:50
PROVIDERS: ADMIT Internal Medicine; ATTEND Internal Medicine
PROC: 0LB70ZZ Excision of Right Hand Tendon, Open Approach (ICD-10-PCS; 2017-09-12)
PROC: 3E0T3BZ Introduction of Anesthetic Agent into Peripheral Nerves and Plexi, Percutaneous Approach (ICD-10-PCS; 2017-09-12)
PROC: 0PSH04Z Reposition Right Radius with Internal Fixation Device, Open Approach (ICD-10-PCS; principal; 2017-09-12 10:15)
PROC: 01N50ZZ Release Median Nerve, Open Approach (ICD-10-PCS; 2017-09-12 10:15)
DX: S52.571A Other intraarticular fracture of lower end of right radius, initial encounter for closed fracture (principal); J18.9 Pneumonia, unspecified organism; F03.90 Unspecified dementia, unspecified severity, without behavioral disturbance, psychotic disturbance, mood disturbance, and anxiety; I35.0 Nonrheumatic aortic (valve) stenosis; J98.11 Atelectasis; G56.00 Carpal tunnel syndrome, unspecified upper limb; H91.90 Unspecified hearing loss, unspecified ear; I10 Essential (primary) hypertension; M81.0 Age-related osteoporosis without current pathological fracture; W01.0XXA Fall on same level from slipping, tripping and stumbling without subsequent striking against object, initial encounter; Y93.41 Activity, dancing; Z90.49 Acquired absence of other specified parts of digestive tract; K29.70 Gastritis, unspecified, without bleeding; Z79.899 Other long term (current) drug therapy

== ENCOUNTER 2017-10-20 18:22 | Inpatient (IN) | payer MEDICARE, OTHER ==
[2017-10-20] MEDS ORDERED: Sodium Chloride 0.9% 500 ML IV STA (18:43)
[2017-10-20] MEDS ORDERED: Morphine 4 MG/ML VIAL IV ONE (18:43)
--- NOTE | 2017-10-20 18:50 | ED PDOC ---
Upper Extremity Pain/Injury Time Seen by Provider: 10/20/17 18:34 Chief Complaint (Nursing): Shortness Of Breath Chief Complaint (Provider): Right Wrist and Right Hand Pain and Swelling History Per: Patient, EMS History/Exam Limitations: no limitations Current Symptoms Are (Timing): Still Present Severity: None Exacerbating Factor(s): Movement Additional Complaint(s): 87 year old female with a past medical history of osteoporosis and hypertension presents to the emergency department complaining of right hand pain and swelling. The EMS state that the patient reports that her hand has been swollen since she had surgery in August. Patient also noted some shortness of breath x1 week, back pain, right shoulder pain and loose stools. Denies nausea, vomiting, diarrhea, chest pain, abdominal pain, palpitations, numbness/tingling of right arm. Of note: Patient is currently taking percocet, metroprolol,amlodipine PMD: FAMILY PROVIDER,NO Past Medical History Reviewed: Historical Data, Nursing Documentation, Vital Signs Vital Signs: Last Vital Signs Temp 98 F 10/20/17 18:28 Pulse 72 10/20/17 18:28 Resp 20 10/20/17 18:28 BP Pulse Ox 99 10/20/17 18:28 - Medical History PMH: HTN, Osteoporosis Other PMH: glaucoma - Surgical History Surgical History: Cholecystectomy, - Family History Family History: States: Unknown Family Hx - Living Arrangements Living Arrangements: With Family - Social History Current smoker - smoking cessation education provided: No Ex-Smoker (has not smoked in the last 12 months): No Alcohol: None Drugs: Denies - Home Medications Home Medications: Ambulatory Orders Medication Instructions Recorded Brimonidine Tartrate/Timolol 1 drop EACHEYE Q12 09/11/17 [Combigan 0.2%-0.5% Eye Drops] Famotidine [Pepcid] 20 mg PO DAILY 09/11/17 Lidocaine 5% [Lidoderm] 1 patch TD DAILY 09/11/17 Linaclotide [Linzess] 290 mcg PO DAILY PRN 09/11/17 Metoprolol Tartrate [Lopressor] 50 mg PO Q12 09/11/17 Multivitamin [Multi-Vitamin Daily] 1 tab PO DAILY 09/11/17 Ranitidine HCl [Zantac] 300 mg PO DAILY PRN 09/11/17 Sertraline [Zoloft] 25 mg PO HS 09/11/17 amLODIPine [Norvasc] 5 mg PO DAILY 09/11/17 oxyCODONE/Acetaminophen [Percocet 1 tab PO Q4 PRN #30 tab 09/12/17 5/325 mg Tab] Brimonidine 0.2% [Alphagan 0.2% 1 drop OU TID #1 bottle 09/17/17 Opht] Timolol 0.5% Ophth [Timoptic 0.5% 1 drop OU BID #1 bottle 09/17/17 Ophth Soln] - Allergies Allergies/Adverse Reactions: Allergies Allergy/AdvReac Type Severity Reaction Status Date / Time No Known Allergies Allergy Verified 09/11/17 16:36 Review of Systems ROS Statement: Except As Marked, All Systems Reviewed And Found Negative Constitutional: Negative for: Fever Cardiovascular: Negative for: Chest Pain Respiratory: Positive for: Shortness of Breath Gastrointestinal: Negative for: Nausea, Vomiting, Abdominal Pain, Diarrhea Musculoskeletal: Positive for: Shoulder Pain (right), Back Pain, Hand Pain ( right hand pain and swelling) Physical Exam - Reviewed Nursing Documentation Reviewed: Yes Vital Signs Reviewed: Yes - Physical Exam Appears: Positive for: Non-toxic, No Acute Distress Head Exam: Positive for: ATRAUMATIC, NORMAL INSPECTION Skin: Positive for: Normal Color, Warm, Dry Eye Exam: Positive for: Normal appearance, EOMI, PERRL ENT: Negative for: Nasal Congestion, Tonsillar Exudate, Tonsillar Swelling Neck: Positive for: Normal, Painless ROM, Supple Cardiovascular/Chest: Positive for: Regular Rate, Rhythm, Chest Non Tender. Negative for: Tachycardia Respiratory: Positive for: Normal Breath Sounds. Negative for: Crackles, Rhonchi, Wheezing Pulses-Radial (R): 2+ (and ulnar) Gastrointestinal/Abdominal: Positive for: Normal Exam, Bowel Sounds, Soft. Negative for: Tenderness, Mass, Guarding, Rebound Back: Positive for: Normal Inspection. Negative for: L CVA Tenderness, R CVA Tenderness Extremity: Positive for: Normal ROM (limited ROM secondary to pain), Tenderness (Diffuse tenderness to right wrist and lower region right of hand ), Swelling ( right wrist), Other (No gross induration; no gross ecchymosis to right hand; surgery scar noted on right hand; no gross sensory deficits of R hand or wrist) . Negative for: Deformity Neurologic/Psych: Positive for: Alert, Oriented. Negative for: Gait - Laboratory Results Result Diagrams: 10/21/17 06:42 10/21/17 06:42 - ECG O2 Sat by Pulse Oximetry: 99 (RA) Pulse Ox Interpretation: Normal Medical Decision Making Medical Decision Makin initial Impression 87 year old female presenting with swelling and pain to right wrist and hand Initial Plan: * VBG Shock Panel * CT angio chest * EKG * B-Type natriuretic Peptide * MP * Troponin * cBC * PTT * Prothrombin Time * CXR * Morphine 4mg IV * NS 500 ml IV 100mls/hr * Blood culture * RAD right wrist * US duplex ext art RT LMTD * US duplex upper extrm vein right * Reevaluation 1899Patient signed out to Dr. Schroeder at 1899 pending imaging, labs and final ED disposition. ------- Documented by Lora Goff acting as a scribe for Jefferson Mayer MD. All medical record entries made by the Scribe were at my direction and personally dictated by me. I have reviewed the chart and agree that the record accurately reflects my personal performance of the history, physical exam, medical decision making, and the department course for this patient. I have also personally directed, reviewed, and agree with the discharge instructions and disposition. Disposition - Clinical Impression Clinical Impression: Wrist pain, Dyspnea - Patient ED Disposition Is Patient to be Admitted: Transfer of Care - Disposition Disposition: Transfer of Care Disposition Time: 11:59 Condition: FAIR Patient Signed Over To: Sandra Schroeder (pending labs, imaging and final ED disposition)
[2017-10-20 19:21] LABS: BASO # 0.1 K/uL (0.0-0.2); BASO % 0.8 % (0.0-2.0); EOS # 0.1 K/uL (0.0-0.7); EOS % 1.3 % (0.0-4.0); HEMOGLOBIN 14.5 g/dL (12.0-16.0); LYMPH % 44.1 % (20.0-40.0); MEAN CELL VOLUME 93.6 fl (81.0-99.0); MEAN CORPUSCULAR HEMOGLOBIN 31.5 pg (27.0-31.0); MEAN CORPUSCULAR HGB CONC 33.7 g/dL (33.0-37.0); MEAN PLATELET VOLUME 9.5 fl (7.2-11.7); MONO # 0.9 K/uL (0.0-0.8); MONO % 12.8 % (0.0-10.0); NEUT # 2.7 K/uL (1.8-7.0); NRBC % 0.1 % (0.0-0.0); RBC 4.58 Mil/uL (3.80-5.20); RED CELL DISTRIBUTION WIDTH 14.6 % (11.5-14.5); WHITE BLOOD COUNT 6.7 K/uL (4.8-10.8)
[2017-10-20] MEDS ORDERED: Morphine 4 MG/ML VIAL ONE (19:21)
--- NOTE | 2017-10-20 19:23 | ED PDOC ---
- Laboratory Results Result Diagrams: 10/20/17 19:15 10/20/17 19:15 - ECG O2 Sat by Pulse Oximetry: 99 (RA) Pulse Ox Interpretation: Normal Medical Decision Making Medical Decision Making: Patient signed out to provider at [address] Mayer pending imaging, labs and final ED disposition. 2102 EXAM: CT Angiography Chest With Intravenous Contrast EXAM DATE/TIME: Exam ordered 10/20/2017 6:43 PM CLINICAL HISTORY: 87 years old, female; Pain; Other: Chest pain SOB; Patient HX: Rt hand/wisrt SX on august; Additional info: Chest pain. Back pain radiating to rt shoulder. HTN oa. Cholecystectomy. TECHNIQUE: Axial computed tomographic angiography images of the chest with intravenous contrast using pulmonary embolism protocol. All CT scans at this facility use one or more dose reduction techniques, viz.: automated exposure control; ma/kV adjustment per patient size (including targeted exams where dose is matched to indication; i.e. head); or iterative reconstruction technique. CONTRAST: 98 mL of VISIPAQUE administered intravenously. COMPARISON: CR - CHEST PORTABLE 2017-10-20 19:43 FINDINGS: Pulmonary arteries: The main pulmonary artery measures 22 mm. No pulmonary embolism is identified. Aorta: The ascending thoracic aorta measures 27 mm. No gross or obvious aortic dissection is identified, particularly distal to the mid arch. Artifact and image degradation precludes detailed evaluation of the ascending thoracic aorta. Lungs: Mild patchy somewhat nodular infiltrates in the right upper lobe and to a lesser degree left upper lobe. There is minimal atelectasis or scar and possible minimal nodular infiltrate in the medial lingula and the lateral right middle lobe and to a lesser degree lateral right lower lobe. There is minimal left lower lobe atelectasis or scar. Somewhat nodular consolidation in the superior segment of the right lower lobe medially. Pleural space: Unremarkable. No significant effusion. No pneumothorax. Heart: Unremarkable. No cardiomegaly. No significant pericardial effusion. No evidence of RV dysfunction. Bones/joints: See above. Soft tissues: Unremarkable. Lymph nodes: Unremarkable. No enlarged lymph nodes. Gallbladder and bile ducts: Status post cholecystectomy. Pancreas: Coarse ossifications in the pancreatic body and tail. IMPRESSION: 1. Scattered areas of nodular infiltrate or consolidation which are greatest in the right upper lobe and to a lesser degree left upper lobe and superior segment of the right lower lobe. Very minimal infiltrates or atelectasis are noted in the lingula and right middle lobe. 2. Status post cholecystectomy. 3. Coarse calcifications in the pancreatic body and tail which may reflect prior pancreatitis. 4. Otherwise negative CTA chest. No pulmonary embolism is identified. 2225 EXAM: US Duplex Right Upper Extremity Veins CLINICAL HISTORY: 87 years old, female; Pain; Arm; Right; Additional info: Wrist pain TECHNIQUE: Real-time duplex ultrasound scan of the right upper extremity veins integrating B-mode twodimensional vascular structure, Doppler spectral analysis, color flow Doppler imaging and compression. COMPARISON: No relevant prior studies available. FINDINGS: Deep veins: Unremarkable. No DVT in the internal jugular, subclavian, axillary, or brachial veins. The veins demonstrate normal color flow, are normally compressible, with normal phasic flow and/or augmentation response. Superficial veins: Unremarkable. No thrombus in the visualized basilic and cephalic veins. Soft tissues: No acute findings. IMPRESSION: No evidence of right upper extremity venous thrombosis 2229 EXAM: US Duplex Right Upper Extremity Arteries EXAM DATE/TIME: Exam ordered 10/20/2017 6:44 PM CLINICAL HISTORY: 87 years old, female; Pain; Arm; Right; Additional info: Wrist pain TECHNIQUE: Real-time duplex ultrasound scan of the right upper extremity arteries integrating B-mode twodimensional vascular structure, Doppler spectral analysis and color flow Doppler imaging. COMPARISON: No relevant prior studies available. FINDINGS: Right subclavian artery: The right subclavian artery velocity is 160 cm/s. Monophasic waveform. Right axillary artery: The right axillary artery velocity is 208 cm/s. Monophasic waveform. Right brachial artery: Right brachial artery velocity is 175 cm/s proximally, 173 cm/s mid and 143 cm/s distally. Monophasic waveform. Right radial artery: Right radial artery velocity is 108 cm/s. Monophasic waveform. Right ulnar artery: Right ulnar artery velocity is 59 cm/s. Monophasic waveform. Other arteries: Arterial atherosclerotic plaque is noted throughout. The right common carotid artery velocity is 74 cm/s. Soft tissues: Unremarkable. IMPRESSION: 1. Arterial atherosclerotic plaque throughout. 2. No evidence of hemodynamically significant stenosis Documented by Lora Goff acting as a scribe for Sandra Schroeder MD. All medical record entries made by the Scribe were at my direction and personally dictated by me. I have reviewed the chart and agree that the record accurately reflects my personal performance of the history, physical exam, medical decision making, and the department course for this patient. I have also personally directed, reviewed, and agree with the discharge instructions and disposition. Disposition - Disposition
[2017-10-20 19:27] LABS: VENOUS BLOOD GAS BASE EXCESS 5.1 mmol/L (0.0-2.0); VENOUS BLOOD GAS PCO2 47 mmHg (40-60); VENOUS BLOOD GAS PO2 29 mm/Hg (30-55); VENOUS BLOOD PH 7.42 (7.32-7.43)
[2017-10-20 19:32] LABS: ALBUMIN 4.2 g/dL (3.5-5.0); ALT/SGPT 33 U/L (9-52); BLOOD UREA NITROGEN 15 mg/dl (7-17); GFR AFRICAN-AMERICAN > 60; GFR NON-AFRICAN AMERICAN > 60
[2017-10-20 19:37] LABS: PARTIAL THROMBOPLASTIN TIME 33.4 Seconds (25.6-37.1); PROTHROMBIN TIME 10.6 Seconds (9.8-13.1)
[2017-10-20] MEDS ORDERED: Iodixanol 320 MG/ML 100 ML BOTTLE IV ONE (19:58)
[2017-10-20] MEDS ORDERED: Sodium Chloride 0.9% 100 ML ONE (19:58)
[2017-10-20 20:28] LABS: ALB/GLOB RATIO 1.1 (1.0-2.1); AST/SGOT 29 U/L (14-36)
[2017-10-20 20:39] LABS: B-TYPE NATRIURETIC PEPTIDE 116 pg/ml (0-900)
--- NOTE | 2017-10-21 00:06 | CARD ---
APPROVED REPORT EKG Measurement Heart [id number] <Conclusion> Sinus rhythm Moderate voltage criteria for LVH, may be normal variant Cannot rule out Septal infarct, age undetermined Abnormal ECG
[2017-10-21] MEDS ORDERED: Sodium Chloride 0.45% 1,000 ML IV SCH (01:15)
[2017-10-21] MEDS ORDERED: Piperacillin/Tazobact 3.375 gm Inj IVPB ONE (01:48)
[2017-10-21] MEDS: Piperacillin/Tazobact 3.375 GM in Sodium Chloride 0.9% 100 ML IVPB SCH ×2 (02:06→16:05)
[2017-10-21 08:00] LABS: HEMOGLOBIN 14.1 g/dL (12.0-16.0); MEAN CELL VOLUME 93.1 fl (81.0-99.0); MEAN CORPUSCULAR HEMOGLOBIN 31.3 pg (27.0-31.0); MEAN CORPUSCULAR HGB CONC 33.6 g/dL (33.0-37.0); RBC 4.48 Mil/uL (3.80-5.20); RED CELL DISTRIBUTION WIDTH 14.2 % (11.5-14.5); WHITE BLOOD COUNT 5.6 K/uL (4.8-10.8)
[2017-10-21 08:31] LABS: ALB/GLOB RATIO 1.1 (1.0-2.1); ALBUMIN 3.8 g/dL (3.5-5.0); ALT/SGPT 33 U/L (9-52); AST/SGOT 26 U/L (14-36); BLOOD UREA NITROGEN 11 mg/dl (7-17); CALCIUM 9.2 mg/dL (8.4-10.2); GFR AFRICAN-AMERICAN > 60; GFR NON-AFRICAN AMERICAN > 60
[2017-10-21] MEDS ORDERED: Patient's Own Med (Multivitamin [Multi-Vitamin Daily] 1 TAB) PO SCH (09:00)
[2017-10-21] MEDS ORDERED: Patient's Own Med (Brimonidine Tartrate/Timolol [Combigan 0.2%-0.5% Eye Drops] 1 DROP) EACHEYE SCH (09:00)
--- NOTE | 2017-10-21 09:17 | RAD ---
HISTORY: dyspnea COMPARISON: Chest radiograph dated 09/16/2017 FINDINGS: LUNGS: Stable chronic prominence of the bilateral interstitial markings. No focal consolidation. PLEURA: No significant pleural effusion identified, no pneumothorax apparent. CARDIOVASCULAR: Normal. OSSEOUS STRUCTURES: Unchanged. VISUALIZED UPPER ABDOMEN: Normal. OTHER FINDINGS: None. IMPRESSION: Stable chronic prominence of the bilateral interstitial markings. No focal consolidation or pleural effusion.
--- NOTE | 2017-10-21 09:20 | RAD ---
PROCEDURE: Right Wrist Radiographs. HISTORY: wrist pain COMPARISON: Right wrist radiographs dated 09/12/2017. FINDINGS: Distal right upper extremity cast has been removed. Prior open reduction internal fixation of the distal radial fracture is redemonstrated with hardware intact and osseous components in anatomic alignment. Distal ulnar fracture plane is less conspicuous with continued evidence of interval healing. No new fracture or other significant interval change is identified. IMPRESSION: Findings as above.
--- NOTE | 2017-10-21 09:39 | CT ---
PROCEDURE: CT Chest with contrast (Pulmonary Angiogram) HISTORY: chest pain COMPARISON: None available. TECHNIQUE: Axial computed tomography images were obtained of the chest in the pulmonary arterial phase of enhancement. Coronal and sagittal reformatted images were created and reviewed. Intravenous contrast dose: 90 mL Visipaque 320 Radiation dose: Total exam DLP = 322.2 mGy-cm. This CT exam was performed using one or more of the following dose reduction techniques: Automated exposure control, adjustment of the mA and/or kV according to patient size, and/or use of iterative reconstruction technique. FINDINGS: PULMONARY ARTERIES: Unremarkable. No pulmonary embolism. AORTA: No acute findings. No thoracic aortic aneurysm. LUNGS: Bilateral nodular infiltrates, predominantly in the superior right upper lobe, and to a lesser degree in the superior left upper lobe. Confluent nodular densities in the superomedial right lower lobe and peripheral left upper lobe at the level of the pulmonary artery bifurcation. PLEURAL SPACES: Unremarkable. No effusion or pneumothorax. HEART: Unremarkable. No cardiomegaly. No significant pericardial effusion. LYMPH NODES: No lymphadenopathy. BONES, CHEST WALL: Unremarkable. No fracture or destructive lesion. OTHER FINDINGS: Prior cholecystectomy with surgical clips in place. Coarse calcifications in the pancreatic tail may reflect chronic pancreatitis. IMPRESSION: Unremarkable CT pulmonary angiogram. No pulmonary embolus. Bilateral nodular infiltrates, predominantly in the superior right upper lobe, and to a lesser degree the superior left upper lobe. Confluent nodular densities in the superomedial right lower lobe and peripheral left upper lobe. Findings likely infectious/ inflammatory etiology with neoplasm not excluded. Short interval CT follow-up is advised to assess for interval change.
--- NOTE | 2017-10-21 09:43 | US ---
PROCEDURE: Right Upper Extremity Venous Doppler HISTORY: wrist pain COMPARISON: None available. TECHNIQUE: Right upper extremity deep veins, including the lower internal jugular, subclavian, axillary and brachial veins, were evaluated flow, compressibility and respiratory phasicity. Cephalic, basilic, radial and ulnar veins were also evaluated. FINDINGS: Normal flow, compressibility and respiratory phasicity was observed in the right upper extremity deep veins. IMPRESSION: No evidence of deep venous thrombosis.
--- NOTE | 2017-10-21 11:25 | US ---
PROCEDURE: Duplex ultrasound of the right upper extremity arteries. HISTORY: wrist pain COMPARISON: None available. TECHNIQUE: Grayscale and duplex Doppler evaluation of the subclavian, axillary, brachial, radial and ulnar arteries. FINDINGS: SUBCLAVIAN ARTERY: Patent. Maximal flow velocity of 160.4 cm/s. Monophasic waveform. AXILLARY ARTERY:Patent. Maximal flow velocity of 208.2 cm/s. Monophasic waveform. BRACHIAL ARTERY: 1. Proximal: Patent. Maximal flow velocity of 175.3 cm/s. Monophasic waveform. 2. Mid: Patent. Maximal flow velocity of 172.8 cm/s. Monophasic waveform. 3. Distal: Patent. Maximal flow velocity of 142.6 cm/s. Monophasic waveform. RADIAL ARTERY: Patent. Maximal flow velocity of 108.1 cm/s. Monophasic waveform. ULNAR ARTERY: Patent. Maximal flow velocity of 59.4 cm/s. Monophasic waveform. OTHER FINDINGS: None. IMPRESSION: No gross arterial occlusion. Absence of triphasic waveform throughout right upper extremity.
[2017-10-21] MEDS: Enoxaparin 40 mg Syringe SC SCH (12:18)
[2017-10-21] MEDS: Lidocaine 5% Patch TD SCH (12:18)
[2017-10-21] MEDS: Multivitamin With Minerals Tab PO SCH (12:19)
[2017-10-21] MEDS: Brimonidine 0.2% 50 DROP/5 ML BOTTLE OU SCH ×2 (13:00→16:12)
--- NOTE | 2017-10-21 13:21 | HP ---
CHIEF COMPLAINT: Shortness of breath. HISTORY OF PRESENT ILLNESS: This is an 87-year-old female known case of dementia, hypertension, and osteoporosis, who was recently discharged from the hospital after treatment for fractured wrist. The patient was found to have shortness of breath, so the patient was brought to Emergency Room and was admitted for further management. The patient has advanced dementia and not able to provide informative history or review of systems. REVIEW OF SYSTEMS: All the review of systems is positive for shortness of breath. Review of systems available is negative for headache, dizziness, syncope, loss of consciousness, chest pain, nausea, vomiting, diarrhea, constipation, or any new joint or extremity pain. Review of systems of all other system is unremarkable. Although as mentioned earlier, review of systems is not reliable. PAST MEDICAL HISTORY: Significant for hypertension, osteoporosis, and dementia. PAST SURGICAL HISTORY: Remarkable for cesarian section and cholecystectomy. PERSONAL HISTORY: The patient is currently nonsmoker, nondrinker, and no substance abuse. MEDICATIONS: The patient is on multiple medications including Combigan, Pepcid, Dilaudid, , Lopressor, multivitamin, Zantac, Zoloft, Norvasc, Levaquin, and Timoptic. ALLERGIES: THE PATIENT IS NOT ALLERGIC TO ANY MEDICATIONS. FAMILY HISTORY: Noncontributory. PHYSICAL EXAMINATION: GENERAL: A well-built, well-nourished 87-year-old female, in no acute distress. VITAL SIGNS: Temperature afebrile, pulse 82, respirations 17, and blood pressure 125/64. HEENT: Pupils reacting to light. No JVD. No thyromegaly. No lymphadenopathy. No nystagmus. Normocephalic and atraumatic skull. HEART: S1 and S2. Normal and regular. LUNGS: Good bilateral air exchange. ABDOMEN: Soft and nontender. No organomegaly. No fluids. Bowel sounds are plus and normal. EXTREMITIES: No edema. No calf swelling. No tenderness. No acute ischemia. Previous wrist fracture seems to be doing fine. No sign of acute distal neurovascular compromise. GRAVEL INSPECTOR: The patient is alert, awake, and responsive, but confused. There is no sign of any acute gross focal motor or sensory neurological deficits. DIAGNOSTIC DATA: Available diagnostic data reviewed. Telemetry monitoring did not reveal significant arrhythmia. WBC 5.6, hemoglobin 14.1, hematocrit 41.8, and platelets 212,000. Sodium 142, potassium 3.7, chloride 102, bicarb 28, BUN 11, and creatinine . SMA-12 is unremarkable. Wrist x-ray shows, however, intact with good anatomic alignment. CAT scan of chest does not reveal any embolus, but does reveal pulmonary infiltrate. Ultrasound of extremities is unremarkable. ADMITTING IMPRESSION: Bilateral pneumonia, hypertension, osteoporosis, and dementia. PLAN: As ordered. Guillaume Almonte MD
[2017-10-21] MEDS: Oxycodone/Acetaminophen 5/325 mg Tab PO PRN (18:14)
[2017-10-22] MEDS: Brimonidine 0.2% 50 DROP/5 ML BOTTLE OU SCH ×3 (08:52→17:14)
[2017-10-22] MEDS: Enoxaparin 40 mg Syringe SC SCH (08:53)
[2017-10-22] MEDS: Lidocaine 5% Patch TD SCH (08:53)
[2017-10-22] MEDS: Multivitamin With Minerals Tab PO SCH (08:54)
[2017-10-22] MEDS: Piperacillin/Tazobact 3.375 GM in Sodium Chloride 0.9% 100 ML IVPB SCH ×3 (08:55→20:00)
--- NOTE | 2017-10-22 09:00 | CP.PCM.CON ---
History of Present Illness - History of Present Illness History of Present Illness: Patient is an 87 y/o female well known to Dr. Linares's practice who is admitted due to complaints of SOB. Dr. Linares was consulted for orthopedic evaluation of her right wrist following recent right wrist ORIF performed on . She has had an uneventful postoperative course and has been attending PT/OT on outpatient basis without difficulties. She has no complaints of pain currently but has stiffness of the fingers which has been improving postop. She denies any recent injuries to the wrist. She denies CP/N/V/D/[place]/dysuria/ melena. Review of Systems - Review of Systems All systems: reviewed and no additional remarkable complaints except Review of Systems: as per HPI Past Patient History - Past Medical History & Family History Past Medical History?: Yes Past Family History: Reviewed and not pertinent - Past Social History Alcohol: None Drugs: Denies - CARDIAC Hx Hypertension: Yes - HEMATOLOGICAL/ONCOLOGICAL Hx AIDS: No Hx Human Immunodeficiency Virus (HIV): No - MUSCULOSKELETAL/RHEUMATOLOGICAL Hx Osteoporosis: Yes - PSYCHIATRIC Hx Emotional Abuse: No Hx Physical Abuse: No Hx Substance Use: No - SURGICAL HISTORY Hx Cholecystectomy: Yes - ANESTHESIA Hx Anesthesia: Yes Hx Anesthesia Reactions: No Meds Allergies/Adverse Reactions: Allergies Allergy/AdvReac Type Severity Reaction Status Date / Time No Known Allergies Allergy Verified 09/11/17 16:36 - Medications Medications: Current Medications Acetaminophen (Tylenol 325mg Tab) 650 mg PO Q6 PRN PRN Reason: Pain, Mild (1-3) Last Admin: 10/21/17 02:06 Dose: 650 mg Amlodipine Besylate (Norvasc) 5 mg PO DAILY [facility] Last Admin: 10/22/17 08:54 Dose: 5 mg Brimonidine Tartrate (Alphagan 0.2% Opht) 1 drop OU TID [facility] Last Admin: 10/22/17 08:52 Dose: 1 drop Enoxaparin Sodium (Lovenox) 40 mg SC DAILY [facility] PRN Reason: Protocol Last Admin: 10/22/17 08:53 Dose: 40 mg Famotidine (Pepcid) 20 mg PO DAILY [facility] Last Admin: 10/22/17 08:56 Dose: 20 mg Famotidine (Pepcid) 40 mg PO HS PRN PRN Reason: Heartburn Home Med (Linaclotide [Linzess]) 290 mcg PO DAILY PRN PRN Reason: Constipation Piperacillin Sod/Tazobactam (Sod 3.375 gm/ Sodium Chloride) 100 mls @ 100 mls/ hr IVPB Q8 [facility] PRN Reason: Protocol Last Admin: 10/22/17 08:55 Dose: 100 mls/hr Lidocaine (Lidoderm) 1 ea TD DAILY [facility] Last Admin: 10/22/17 08:53 Dose: 1 ea Metoprolol Tartrate (Lopressor) 50 mg PO Q12 [facility] Last Admin: 10/22/17 08:53 Dose: 50 mg Multivitamins/Minerals (Therapeutic-M Tab) 1 tab PO DAILY [facility] Last Admin: 10/22/17 08:54 Dose: 1 tab Oxycodone/Acetaminophen (Percocet 5/325 Mg Tab) 1 tab PO Q4 PRN PRN Reason: Pain, moderate (4-7) Stop: 10/24/17 01:12 Last Admin: 10/21/17 18:14 Dose: 1 tab Sertraline HCl (Zoloft) 25 mg PO HS [facility] Last Admin: 10/21/17 21:24 Dose: 25 mg Timolol Maleate (Timoptic 0.5% Ophth Soln) 1 drop OU BID [facility] Last Admin: 10/22/17 08:54 Dose: 1 drop Physical Exam - Constitutional Appears: No Acute Distress - Eye Exam Eye Exam: Normal appearance - ENT Exam ENT Exam: Mucous Membranes Moist - Extremities Exam Additional comments: Right wrist: minimal swelling about the wrist, surgical incision is well healed , unable to make full closed fist due to stiffness, sensation intact MN/UN/RN, motor intact MN/UN/AIN/PIN, radial pulses intact L wrist: no swelling, no lesions, FROM, gross NVI distally Results - Vital Signs Recent Vital Signs: Last Vital Signs Temp 98 F 10/22/17 08:00 Pulse 79 10/22/17 08:54 Resp 19 10/22/17 08:00 BP 134/78 10/22/17 08:54 Pulse Ox 94 L 10/22/17 08:00 - Labs Result Diagrams: 10/21/17 06:42 10/21/17 06:42 - Impressions Impression: Accession No. : [id number] Patient Name / ID : KAILEY Soriano / [id number] Exam Date : 10/20/2017 19:43:36 ( Approved ) Study Comment : Sex / Age : F / 87Y Creator : Ad Vazquez MD Dictator : Ad Vazquez MD Paper Slitter : Mortgage Assistant : Ad Vazquez MD Approver2 : Report Date : 10/21/2017 09:18:44 My Comment : PROCEDURE: Right Wrist Radiographs. HISTORY: wrist pain COMPARISON: Right wrist radiographs dated 09/12/2017. FINDINGS: Distal right upper extremity cast has been removed. Prior open reduction internal fixation of the distal radial fracture is redemonstrated with hardware intact and osseous components in anatomic alignment. Distal ulnar fracture plane is less conspicuous with continued evidence of interval healing. No new fracture or other significant interval change is identified. IMPRESSION: Findings as above. Assessment & Plan (1) Closed fracture of right distal radius Assessment and Plan: Patient is 6 weeks from right wrist ORIF doing well -PT/OT -no wrist immobilization needed -ice/elevation -stable from orthopedic standpoint -above d/w Dr. Linares in agreement Status: Inactive - Date & Time Date: 10/22/17 Time: 08:59
--- NOTE | 2017-10-22 09:35 | PN ---
DATE: 10/22/2017 SUBJECTIVE: The patient is seen and examined. Interim events noted. Consults pending. The patient remains in Progressive Care Unit on telemetry monitoring in ICU. She is not able to provide informative history or review of system, but denies any chest pain, shortness of breath or coughing. No specific issue reported by nursing staff. PHYSICAL EXAMINATION: GENERAL: The patient is in no acute distress. VITAL SIGNS: Stable. Th patient is afebrile. HEART: S1 and S2, normal and regular. LUNGS: Good bilateral air exchange. ABDOMEN: Soft and nontender. EXTREMITIES: No edema. No calf swelling. No tenderness. No acute ischemia. CENTRAL NERVOUS SYSTEM: Exam is essentially unchanged. DIAGNOSTIC DATA: Available diagnostic data reviewed. Telemetry monitoring does not reveal significant arrhythmias. ASSESSMENT AND PLAN: Overall, the patient's general medical condition is stable. Plan as ordered. Guillaume Almonte MD
[2017-10-23] MEDS: Piperacillin/Tazobact 3.375 GM in Sodium Chloride 0.9% 100 ML IVPB SCH ×3 (01:43→16:45)
[2017-10-23] MEDS: Oxycodone/Acetaminophen 5/325 mg Tab PO PRN ×2 (04:33→17:11)
--- NOTE | 2017-10-23 08:10 | CP.PCM.PN ---
Subjective - Date & Time of Evaluation Date of Evaluation: 10/23/17 Time of Evaluation: 08:07 - Subjective Subjective: Patient seen and examined bedside this morning. There are no acute events overnight, NAD. Patient is laying in bed comfortably and reports mild pain with right wrist. Patient has no other complaints. Patient breathing on room air w/o difficulty Objective - Vital Signs/Intake and Output Vital Signs (last 24 hours): Temp Pulse Resp BP Pulse Ox 98.4 F 61 19 134/74 97 10/23/17 00:06 10/23/17 00:06 10/23/17 00:06 10/23/17 00:06 10/23/17 00:06 - Medications Medications: Current Medications Acetaminophen (Tylenol 325mg Tab) 650 mg PO Q6 PRN PRN Reason: Pain, Mild (1-3) Last Admin: 10/21/17 02:06 Dose: 650 mg Amlodipine Besylate (Norvasc) 5 mg PO DAILY [facility] Last Admin: 10/22/17 08:54 Dose: 5 mg Brimonidine Tartrate (Alphagan 0.2% Opht) 1 drop OU TID [facility] Last Admin: 10/22/17 17:14 Dose: 1 drop Enoxaparin Sodium (Lovenox) 40 mg SC DAILY [facility] PRN Reason: Protocol Last Admin: 10/22/17 08:53 Dose: 40 mg Famotidine (Pepcid) 20 mg PO DAILY [facility] Last Admin: 10/22/17 08:56 Dose: 20 mg Famotidine (Pepcid) 40 mg PO HS PRN PRN Reason: Heartburn Home Med (Linaclotide [Linzess]) 290 mcg PO DAILY PRN PRN Reason: Constipation Piperacillin Sod/Tazobactam (Sod 3.375 gm/ Sodium Chloride) 100 mls @ 100 mls/ hr IVPB Q8 [facility] PRN Reason: Protocol Last Admin: 10/23/17 01:43 Dose: 100 mls/hr Lidocaine (Lidoderm) 1 ea TD DAILY [facility] Last Admin: 10/22/17 08:53 Dose: 1 ea Metoprolol Tartrate (Lopressor) 50 mg PO Q12 [facility] Last Admin: 10/22/17 21:51 Dose: 50 mg Multivitamins/Minerals (Therapeutic-M Tab) 1 tab PO DAILY [facility] Last Admin: 04/02/18 08:54 Dose: 1 tab Oxycodone/Acetaminophen (Percocet 5/325 Mg Tab) 1 tab PO Q4 PRN PRN Reason: Pain, moderate (4-7) Stop: 10/24/17 01:12 Last Admin: 10/23/17 04:33 Dose: 1 tab Sertraline HCl (Zoloft) 25 mg PO HS [facility] Last Admin: 10/22/17 21:54 Dose: 25 mg Timolol Maleate (Timoptic 0.5% Ophth Soln) 1 drop OU BID [facility] Last Admin: 10/22/17 17:19 Dose: 1 drop - Labs Labs: 10/21/17 06:42 10/21/17 06:42 PT 10.6 Seconds (9.8-13.1) 10/20/17 19:15 INR 1.0 (0.9-1.2) 10/20/17 19:15 APTT 33.4 Seconds (25.6-37.1) 10/20/17 19:15 - Constitutional Appears: Non-toxic, No Acute Distress - Head Exam Head Exam: ATRAUMATIC, NORMAL INSPECTION, NORMOCEPHALIC - Eye Exam Eye Exam: Normal appearance - ENT Exam ENT Exam: Mucous Membranes Moist - Neck Exam Neck Exam: Full ROM. absent: Tenderness - Respiratory Exam Respiratory Exam: NORMAL BREATHING PATTERN. absent: Accessory Muscle Use, Decreased Breath Sounds, Rales, Rhonchi, Wheezes, Respiratory Distress - Cardiovascular Exam Cardiovascular Exam: absent: Tachycardia - Extremities Exam Extremities Exam: Full ROM. absent: Calf Tenderness, Pedal Edema, Tenderness Additional comments: right wrist limited ROM, no erythema, no edema - Neurological Exam Neurological Exam: Alert, Awake, Oriented x3 - Skin Skin Exam: Dry, Intact, Normal Color, Warm Assessment and Plan (1) Dyspnea Status: Acute (2) Fracture of wrist Status: Inactive (3) Wrist pain Status: Acute - Assessment and Plan (Free Text) Plan: c/w present management ortho recommendations appreciated pulmonary consult ordered PT/OT ordered zosyn IV day 3 pain control w/ percocet PO Q4h prn
[2017-10-23] MEDS: Lidocaine 5% Patch TD SCH (08:50)
[2017-10-23] MEDS: Enoxaparin 40 mg Syringe SC SCH (08:55)
--- NOTE | 2017-10-23 08:59 | PQF GENQUE ---
Dr. Almonte, Please specify type of pneumonia or possible type of pneumonia in the progress notes: if known (Note: CAP, HAP, and HCAP indicate where the pneumonia was acquired, not a specific type) i.e. Aspiration pneumonia Please document specific aspirate (food, liquids, etc.) Please indicate if this is postprocedural Bacterial (specify organism) Bronchopneumonia (specify organism) Interstitual pneumonia Organizing pneumonia/BOOP Pneumonia with influenza, manny flu, or H1N1 flu RSV pneumonia Tuberculosis, pulmonary Viral pneumonia Other pneumonia (specify organism or type) Clinically unable to determine Unknown 2. Please specify the organism causing the pneumonia 10/21 CT Chest: Bilateral nodular infiltrates, predominantly in the superior right upper lobe, and to a lesser degree the superior left upper lobe. Confluent nodular densities in the superomedial right lower lobe and peripheral left upper lobe. Findings likely infectious/ inflammatory etiology with neoplasm not excluded. Short interval CT follow-up is advised to assess for interval change H and P: 87-year-old female known case of dementia, hypertension, and osteoporosis, who was recently discharged from the hospital after treatment for fractured Admitting Impression: Bilateral pneumonia, hypertension, osteoporosis, and dementia. Zosyn IV This form is a permanent part of the medical record Clarification of your documentation is requested to better reflect the severity of illness and intensity of treatment of your patient. Indicators present [] Specify: [] [] Specify: [] [] Specify: [] [] Specify: [] Location in the medical record that reflects the above clinical findings: [] Treatment Provided: [] PHYSICIAN'S RESPONSE Based on your medical judgment of the clinical indicators outlined above please clarify the following: [] Practitioner response [] If unable to determine, please check the box, sign and date. Present On Admission (POA) Indicator: [] Present at the time of admission [] Not present at the time of admission [] Clinically Undetermined In responding to this query, please exercise your independent professional judgment. The fact that a question is asked does not imply that any particular answer is desired or expected. Thank you for your clarification on this documentation. If you have any questions please call. * Thank you, Joan Stratton RN ext. #[phone] MTDD
[2017-10-23] MEDS: Multivitamin With Minerals Tab PO SCH (09:01)
[2017-10-23] MEDS: Brimonidine 0.2% 50 DROP/5 ML BOTTLE OU SCH ×4 (10:03→16:47)
--- NOTE | 2017-10-23 13:36 | CP.PCM.PN ---
Subjective - Date & Time of Evaluation Date of Evaluation: 10/23/17 Time of Evaluation: 08:00 - Subjective Subjective: Patient seen and examined sitting up in bed. No complaints of pain. No new complaints. Objective - Vital Signs/Intake and Output Vital Signs (last 24 hours): Temp Pulse Resp BP Pulse Ox 98 F 86 18 136/74 95 10/23/17 08:31 10/23/17 09:46 10/23/17 08:31 10/23/17 08:57 10/23/17 09:46 - Medications Medications: Current Medications Acetaminophen (Tylenol 325mg Tab) 650 mg PO Q6 PRN PRN Reason: Pain, Mild (1-3) Last Admin: 10/21/17 02:06 Dose: 650 mg Amlodipine Besylate (Norvasc) 5 mg PO DAILY [facility] Last Admin: 10/23/17 08:57 Dose: 5 mg Brimonidine Tartrate (Alphagan 0.2% Opht) 1 drop OU TID [facility] Last Admin: 10/23/17 10:05 Dose: 1 drop Enoxaparin Sodium (Lovenox) 40 mg SC DAILY [facility] PRN Reason: Protocol Last Admin: 10/23/17 08:55 Dose: 40 mg Famotidine (Pepcid) 20 mg PO DAILY [facility] Last Admin: 10/23/17 08:50 Dose: 20 mg Famotidine (Pepcid) 40 mg PO HS PRN PRN Reason: Heartburn Home Med (Linaclotide [Linzess]) 290 mcg PO DAILY PRN PRN Reason: Constipation Piperacillin Sod/Tazobactam (Sod 3.375 gm/ Sodium Chloride) 100 mls @ 100 mls/ hr IVPB Q8 [facility] PRN Reason: Protocol Last Admin: 10/23/17 09:02 Dose: 100 mls/hr Lidocaine (Lidoderm) 1 ea TD DAILY [facility] Last Admin: 10/23/17 08:50 Dose: 1 ea Metoprolol Tartrate (Lopressor) 50 mg PO Q12 [facility] Last Admin: 10/23/17 08:56 Dose: 50 mg Multivitamins/Minerals (Therapeutic-M Tab) 1 tab PO DAILY [facility] Last Admin: 10/23/17 09:01 Dose: 1 tab Oxycodone/Acetaminophen (Percocet 5/325 Mg Tab) 1 tab PO Q4 PRN PRN Reason: Pain, moderate (4-7) Stop: 10/24/17 01:12 Last Admin: 10/23/17 04:33 Dose: 1 tab Sertraline HCl (Zoloft) 25 mg PO HS [facility] Last Admin: 10/22/17 21:54 Dose: 25 mg Timolol Maleate (Timoptic 0.5% Ophth Soln) 1 drop OU BID [facility] Last Admin: 10/23/17 08:58 Dose: 1 drop - Labs Labs: 10/21/17 06:42 10/21/17 06:42 PT 10.6 Seconds (9.8-13.1) 10/20/17 19:15 INR 1.0 (0.9-1.2) 10/20/17 19:15 APTT 33.4 Seconds (25.6-37.1) 10/20/17 19:15 - Extremities Exam Additional comments: R wrist: mild swelling, no tenderness, wound c/d/i well healed unable to make full fist 2nd to stiffness of fingers, wrist flex 40deg, wrist ext 30deg sensation intact MN/UN/RN motor intact MN/UN/AIN/PIN radial pulse intact Assessment and Plan (1) Closed fracture of right distal radius Assessment & Plan: -PT/OT-aggressive PROM/AROM of wrist and fingers -stable from orthopedic standpoint -above d/w Dr. Linares in agreement Status: Inactive
[2017-10-23 17:13] VITALS: RESP 20; O2SAT 96
[2017-10-24] MEDS: Piperacillin/Tazobact 3.375 GM in Sodium Chloride 0.9% 100 ML IVPB SCH ×3 (00:49→10:31)
[2017-10-24] MEDS: Oxycodone/Acetaminophen 5/325 mg Tab PO PRN (00:54)
[2017-10-24 08:35] VITALS: PULSE 66; TEMP 97.9
[2017-10-24] MEDS: Lidocaine 5% Patch TD SCH (10:13)
[2017-10-24] MEDS: Brimonidine 0.2% 50 DROP/5 ML BOTTLE OU SCH (10:27)
[2017-10-24] MEDS: Enoxaparin 40 mg Syringe SC SCH (10:28)
[2017-10-24] MEDS: Multivitamin With Minerals Tab PO SCH (10:30)
[2017-10-24 10:31] VITALS: BP 157/66
--- NOTE | 2017-10-24 12:53 | CP.PCM.DIS ---
Provider - Provider Date of Admission: 10/20/17 22:41 Attending physician: Guillaume Almonte MD Time Spent in preparation of Discharge (in minutes): 15 Diagnosis - Discharge Diagnosis (1) Dyspnea Status: Acute (2) Fracture of wrist Status: Inactive (3) Wrist pain Status: Acute Hospital Course - Lab Results Lab Results: Micro Results 10/22/17 11:45 Nose MRSA Culture (Admit) - Final MRSA NOT DETECTED 10/20/17 19:20 Blood-Venous Blood Culture - Preliminary NO GROWTH AFTER 3 DAYS 10/20/17 19:15 Blood-Venous Blood Culture - Preliminary NO GROWTH AFTER 3 DAYS 10/21/17 15:35 Nose MRSA Culture (Admit) - Final MRSA NOT DETECTED Most Recent Lab Values WBC 5.6 K/uL (4.8-10.8) 10/21/17 06:42 RBC 4.48 Mil/uL (3.80-5.20) 10/21/17 06:42 Hgb 14.1 g/dL (12.0-16.0) 10/21/17 06:42 Hct 41.8 % (34.0-47.0) 10/21/17 06:42 MCV 93.1 fl (81.0-99.0) 10/21/17 06:42 MCH 31.3 pg (27.0-31.0) H 10/21/17 06:42 MCHC 33.6 g/dL (33.0-37.0) 10/21/17 06:42 RDW 14.2 % (11.5-14.5) 10/21/17 06:42 Plt Count 212 K/uL (130-400) 10/21/17 06:42 MPV 9.5 fl (7.2-11.7) 10/20/17 19:15 Neut % (Auto) 41.0 % (50.0-75.0) L 10/20/17 19:15 Lymph % (Auto) 44.1 % (20.0-40.0) H 10/20/17 19:15 Rabun % (Auto) 12.8 % (0.0-10.0) H 10/20/17 19:15 Eos % (Auto) 1.3 % (0.0-4.0) 10/20/17 19:15 Baso % (Auto) 0.8 % (0.0-2.0) 10/20/17 19:15 Neut # (Auto) 2.7 K/uL (1.8-7.0) 10/20/17 19:15 Lymph # (Auto) 3.0 K/uL (1.0-4.3) 10/20/17 19:15 Rabun # (Auto) 0.9 K/uL (0.0-0.8) H 10/20/17 19:15 Eos # (Auto) 0.1 K/uL (0.0-0.7) 10/20/17 19:15 Baso # (Auto) 0.1 K/uL (0.0-0.2) 10/20/17 19:15 PT 10.6 Seconds (9.8-13.1) 10/20/17 19:15 INR 1.0 (0.9-1.2) 10/20/17 19:15 APTT 33.4 Seconds (25.6-37.1) 10/20/17 19:15 pO2 29 mm/Hg (30-55) L 10/20/17 19:18 VBG pH 7.42 (7.32-7.43) 10/20/17 19:18 VBG pCO2 47 mmHg (40-60) 10/20/17 19:18 VBG HCO3 27.8 mmol/L 10/20/17 19:18 VBG Total CO2 31.9 mmol/L (22-28) H 10/20/17 19:18 VBG O2 Sat (Calc) 67.8 % (40-65) H 10/20/17 19:18 VBG Base Excess 5.1 mmol/L (0.0-2.0) H 10/20/17 19:18 VBG Potassium 3.8 mmol/L (3.6-5.2) 10/20/17 19:18 Sodium 140.0 mmol/L (132-148) 10/20/17:18 Chloride 104.0 mmol/L (98-107) 10/20/17 19:18 Glucose 107 mg/dL (65-105) H 10/20/17 19:18 Lactate 1.1 mmol/L (0.7-2.1) 10/20/17 19:18 FiO2 21.0 % 10/20/17 19:18 Sodium 142 mmol/l (132-148) 10/21/17 06:42 Potassium 3.7 MMOL/L (3.6-5.0) 10/21/17 06:42 Chloride 102 mmol/L (98-107) 10/21/17 06:42 Carbon Dioxide 28 mmol/L (22-30) 10/21/17 06:42 Anion Gap 16 (10-20) 10/21/17 06:42 BUN 11 mg/dl (7-17) 10/21/17 06:42 Creatinine 0.5 mg/dl (0.7-1.2) L 10/21/17 06:42 Est GFR ( Amer) > 60 10/21/17 06:42 Est GFR (Non-Af Amer) > 60 10/21/17 06:42 Random Glucose 108 mg/dL (65-105) H 10/21/17 06:42 Calcium 9.2 mg/dL (8.4-10.2) 10/21/17 06:42 Total Bilirubin 0.5 mg/dl (0.2-1.3) 10/21/17 06:42 AST 26 U/L (14-36) 10/21/17 06:42 ALT 33 U/L (9-52) 10/21/17 06:42 Alkaline Phosphatase 86 U/L (38-126) 10/21/17 06:42 Troponin I < 0.0120 ng/mL (0.00-0.120) 10/20/17 19:15 NT-Pro-B Natriuret Pep 116 pg/ml (0-900) 10/20/17 19:15 Total Protein 7.1 G/DL (6.3-8.2) 10/21/17 06:42 Albumin 3.8 g/dL (3.5-5.0) 10/21/17 06:42 Globulin 3.4 gm/dL (2.2-3.9) 10/21/17 06:42 Albumin/Globulin Ratio 1.1 (1.0-2.1) 10/21/17 06:42 Venous Blood Potassium 3.8 mmol/L (3.6-5.2) 10/20/17 19:18 - Hospital Course Hospital Course: 87 y/o woman w/ pmh of osteoporosis, hypertension, recent right wrist ORIF 09/11 presents to ED w/ right upper extremity pain and SOB. Patient admitted for dyspnea. Patient had chest CT that showed multiple bilateral infiltrates but no pulmonary embolus or effusion. Patient started on IV antibiotics. Patient has been afebrile and has had no elevated WBC with other blood tests WNL. Patient seen and evaluated by ortho, pulmonary, and physical therapy. Patient denies any recent injuries to the wrist. She denies headaches, paresthesia, chest pain, nausea, vomiting, diarrhea, dysuria, melena. The patient reports feeling better and has no complaints. The patietn has been seen , examined, and deemed medically fit for discharge home. The patient is to follow up w/ ortho, composite assembler, outpatient physical therapy, and PMD. The patient will be discharged w/ augmentin 875 mg PO BID for 5 days. Discharge Exam - Head Exam Head Exam: ATRAUMATIC, NORMAL INSPECTION, NORMOCEPHALIC - Eye Exam Eye Exam: Normal appearance - ENT Exam ENT Exam: Mucous Membranes Moist - Neck Exam Neck exam: Full Rom - Respiratory Exam Respiratory Exam: Clear to PA & Lateral, NORMAL BREATHING PATTERN. absent: Accessory Muscle Use, Decreased Breath Sounds, Rales, Rhonchi, Wheezes, Respiratory Distress - Cardiovascular Exam Cardiovascular Exam: REGULAR RHYTHM. absent: Tachycardia - GI/Abdominal Exam GI & Abdominal Exam: Normal Bowel Sounds, Soft. absent: Distended, Tenderness - Extremities Exam Additional comments: right wrist limited ROM, no erythema, no edema, dressing c/d/i - Neurological Exam Neurological exam: Alert, Oriented x3 - Skin Skin Exam: Dry, Intact, Normal Color, Warm Discharge Plan - Discharge Medications Prescriptions: Amoxicillin/Clavulanate [Augmentin 875 MG-125 MG] 1 tab PO BID #10 tab - Follow Up Plan Condition: FAIR Disposition: HOME/ ROUTINE Instructions: Shortness of Breath (Dyspnea) (DC), Hand Pain (DC) Additional Instructions: pt. cleared for discharge to home today by , and pt. will f/u with outpatient for f/u with pulmonary nodules pt. will need OT, PROM, AROM rx for meds provided, cont. augmentin Home OT/VNS janes con kwong primario dentro de 1 semana [facility] [phone] Referrals: Guillaume Almonte MD [Family Provider] - Rachid Linares III, MD [Staff Provider] - Rachid Vaughn MD [Staff Provider] -
== END 2017-10-24 12:55 | disposition home health service (06) | DRG 195 ==
LOC: H.ER 18:22 → H.ERHOLD 22:41 → H.ICU/CCU 10-21 09:35 → H.MEDSURG1 10-22 12:16
PROVIDERS: ADMIT Internal Medicine; ATTEND Internal Medicine
DX: J15.9 Unspecified bacterial pneumonia (principal); F03.90 Unspecified dementia, unspecified severity, without behavioral disturbance, psychotic disturbance, mood disturbance, and anxiety; I10 Essential (primary) hypertension; M81.0 Age-related osteoporosis without current pathological fracture; S52.501D Unspecified fracture of the lower end of right radius, subsequent encounter for closed fracture with routine healing; X58.XXXD Exposure to other specified factors, subsequent encounter; H40.9 Unspecified glaucoma

== ENCOUNTER 2018-05-10 16:38 | Inpatient (IN) | payer MEDICARE, OTHER ==
[2018-05-10 18:01] LABS: BASO % 0.5 % (0.0-2.0); EOS # 0.1 K/uL (0.0-0.7); EOS % 1.6 % (0.0-4.0); HEMOGLOBIN 15.1 g/dL (12.0-16.0); LYMPH # 2.6 K/uL (1.0-4.3); LYMPH % 35.6 % (20.0-40.0); MEAN CELL VOLUME 95.3 fl (81.0-99.0); MEAN CORPUSCULAR HEMOGLOBIN 32.2 pg (27.0-31.0); MEAN CORPUSCULAR HGB CONC 33.8 g/dL (33.0-37.0); MEAN PLATELET VOLUME 9.8 fl (7.2-11.7); MONO # 0.9 K/uL (0.0-0.8); NEUT # 3.6 K/uL (1.8-7.0); NEUT % 50.3 % (50.0-75.0); NRBC % 0.1 % (0.0-0.0); RBC 4.68 Mil/uL (3.80-5.20); RED CELL DISTRIBUTION WIDTH 14.1 % (11.5-14.5); WHITE BLOOD COUNT 7.2 K/uL (4.8-10.8)
[2018-05-10 18:08] LABS: INR 1.1; PROTHROMBIN TIME 12.2 Seconds (9.8-13.1)
[2018-05-10 18:11] LABS: PARTIAL THROMBOPLASTIN TIME 33.8 Seconds (25.6-37.1)
--- NOTE | 2018-05-10 18:13 | ED PDOC ---
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 Family notes the tremur waxes and wanes intermittently since onset. No reports of chest pain, lightheadedness, cough, vomiting, decreased appetite, or change in medication. Patient was recently evaluated at [facility] for virus illness and dehydration then fou nd to have pneumonia. She was discharged on Levaquin, in which, she completed. Additionally, patient was recently diagnosed with a 2nd degree heart block and currently awaiting follow-up with pipe coverer at the end of the month. PMD: none provided Past Medical History Reviewed: Historical Data, Nursing Documentation, Vital Signs Vital Signs: Last Vital Signs Temp 97.9 F 05/10/18 17:02 Pulse 71 05/10/18 17:02 Resp 20 05/10/18 17:02 BP 148/93 H 05/10/18 17:02 Pulse Ox 100 05/10/18 17:02 - Medical History PMH: Dementia, HTN, Hypercholesterolemia, Osteoporosis Denies: HIV - Surgical History Surgical History: Cholecystectomy, - Family History Family History: States: Unknown Family Hx - Home Medications Home Medications: Ambulatory Orders Medication Instructions Recorded Brimonidine Tartrate/Timolol 1 drop EACHEYE Q12 05/10/18 [Combigan 0.2%-0.5% Eye Drops] Famotidine [Pepcid] 20 mg PO DAILY 05/10/18 Lidocaine 5% [Lidoderm] 1 patch TD DAILY PRN 05/10/18 Memantine HCl/Donepezil HCl 1 cap PO DAILY 05/10/18 [Namzaric 7 mg-10 mg Capsule] Metoprolol Tartrate [Lopressor] 50 mg PO DAILY 05/10/18 Multivitamin [Multi-Vitamin Daily] 1 tab PO DAILY 05/10/18 amLODIPine [Norvasc] 2.5 mg PO DAILY 05/10/18 - Allergies Allergies/Adverse Reactions: Allergies Allergy/AdvReac Type Severity Reaction Status Date / Time No Known Allergies Allergy Verified 05/10/18 16:43 Review of Systems ROS Statement: Except As Marked, All Systems Reviewed And Found Negative Cardiovascular: Negative for: Chest Pain Respiratory: Positive for: Shortness of Breath. Negative for: Cough Gastrointestinal: Negative for: Vomiting, Other (decreased appetite) Neurological: Positive for: Dizziness (lightheadedness), Other (tremur) Physical Exam - Reviewed Nursing Documentation Reviewed: Yes Vital Signs Reviewed: Yes - Physical Exam Appears: Positive for: Non-toxic, In Acute Distress Head Exam: Positive for: ATRAUMATIC, NORMOCEPHALIC Skin: Positive for: Warm, Dry Eye Exam: Positive for: EOMI, PERRL ENT: Positive for: Pharynx Is (clear) Neck: Positive for: Painless ROM, Supple Cardiovascular/Chest: Positive for: Regular Rate, Rhythm, Murmur (systolically detected) Respiratory: Positive for: Normal Breath Sounds Gastrointestinal/Abdominal: Positive for: Soft. Negative for: Tenderness Back: Positive for: Normal Inspection. Negative for: Decreased ROM Extremity: Negative for: Pedal Edema, Calf Tenderness Lymphatic: Negative for: Adenopathy Neurologic/Psych: Positive for: Alert. Negative for: Motor/Sensory Deficits - Laboratory Results Result Diagrams: 05/10/18 17:50 05/10/18 17:50 - ECG O2 Sat by Pulse Oximetry: 100 (RA) Pulse Ox Interpretation: Normal Medical Decision Making Medical Decision Making: Initial Impression: Shortness of breath; Tremor Differential diagnosis includes but not limited to: electrolyte abnormality, dehydration, anemia, pneumoniaa Initial Plan: * Labs * EKG * CXR * Accucheck Time: 1703 --Accucheck: 97 Time: 1824 --CXR FINDINGS: LUNGS: No active pulmonary disease. PLEURA: No significant pleural effusion identified, no pneumothorax apparent. CARDIOVASCULAR: No atherosclerotic calcification present No radiographic findings to suggest acute or significant cardiovascular disease. OSSEOUS STRUCTURES: No significant abnormalities. VISUALIZED UPPER ABDOMEN: Normal. OTHER FINDINGS: None. IMPRESSION: No active disease. No significant interval change compared to the prior examination(s). CT angiogram of the chest Clinical statement: Chest pain and shortness of breath. Technique: Multiple axial CT images were obtained from the thoracic inlet through the upper abdomen after a bolus administration of nonionic intravenous contrast. Coronal and sagittal reconstructions were also obtained. 309.96 mGy-cm With; visipaque 320 66ml Comparison: None available at this time. Findings: The pulmonary arteries are well-opacified with contrast, with no intraluminal filling defects to suggest embolism. The thoracic aorta is unremarkable. Thyroid gland is within normal limits. There is no thoracic lymphadenopathy. There are no pericardial or pleural effusions. There are scattered reticulonodular confluent infiltrates in the upper lobes bilaterally, associated with tree-in-bud nodularity, greater on the right than the left. Limited imaging of the upper abdomen is unremarkable. There are no suspicious osseous lesions. Impression: 1. No evidence of pulmonary embolism. 2. Reticulonodular infiltrate associated with tree-in-bud nodularity, in the upper lobes bilaterally as described. This is compatible with atypical pneumonia. 3. No pleural effusions. Electronically signed on May 10, 2018 8:39:16 PM EDT by: Julian Silva M.D., MBA Certified By [facility] & [facility] Fellowship Trained MRI and CT Specialist Labs unremarkable. However pt has now completed course of antibiotics and CT still demonstrates pneumonia. DW findings with family. Pt to be hospitalized for pneumonia failed outpatient treatment. ---- Scribe Attestation: Documented by Gabriela Bettencourt, acting as a scribe for Sandra Schroeder MD. Provider Scribe Attestation: All medical record entries made by the Scribe were at my direction and personally dictated by me. I have reviewed the chart and agree that the record accurately reflects my personal performance of the history, physical exam, medical decision making, and the department course for this patient. I have also personally directed, reviewed, and agree with the discharge instructions and disposition. Disposition - Clinical Impression Clinical Impression: Pneumonia, Dyspnea Counseled Patient/Family Regarding: Studies Performed, Diagnosis, Need For Followup - Disposition Disposition Time: 18:45 Condition: FAIR - Pt Status Changed To: Hospital Disposition Of: Inpatient - Admit Certification Admit to Inpatient:: After my assessment, the patient will require hospitalization for at least two midnights. This is because of the severity of symptoms shown, intensity of services needed, and/or the medical risk in this patient being treated as an outpatient. - POA Present On Arrival: None
[2018-05-10 18:20] LABS: ALB/GLOB RATIO 1.1 (1.0-2.1); ALBUMIN 4.2 g/dL (3.5-5.0); ALT/SGPT 30 U/L (9-52); AST/SGOT 32 U/L (14-36); BLOOD UREA NITROGEN 13 mg/dl (7-17); CALCIUM 9.6 mg/dL (8.4-10.2); GFR NON-AFRICAN AMERICAN > 60
[2018-05-10 18:22] LABS: B-TYPE NATRIURETIC PEPTIDE 127 pg/ml (0-900)
[2018-05-10 18:30] LABS: SQUAMOUS EPITHIAL 3 /hpf (0-5); URINE BACTERIA RARE (<OCC); URINE BILIRUBIN NEGATIVE (NEGATIVE); URINE BLOOD NEGATIVE (NEGATIVE); URINE CLARITY SLIGHTY-CLOUDY (Clear); URINE COLOR YELLOW (YELLOW); URINE GLUCOSE (UA) NEG (Normal); URINE HYALINE CAST 0-2 /hpf (0-2); URINE LEUKOCYTE ESTERASE TRACE Leu/uL (Negative); URINE PROTEIN NEGATIVE (NEGATIVE); URINE UROBILINOGEN 0.2-1.0 mg/dL (0.2-1.0)
[2018-05-10 18:40] LABS: T3 1.15 nmol/L (1.49-2.60)
--- NOTE | 2018-05-10 18:46 | RAD ---
Date of service: 05/10/2018 HISTORY: tremors COMPARISON: 10/20/2017 FINDINGS: LUNGS: No active pulmonary disease. PLEURA: No significant pleural effusion identified, no pneumothorax apparent. CARDIOVASCULAR: No atherosclerotic calcification present No radiographic findings to suggest acute or significant cardiovascular disease. OSSEOUS STRUCTURES: No significant abnormalities. VISUALIZED UPPER ABDOMEN: Normal. OTHER FINDINGS: None. IMPRESSION: No active disease. No significant interval change compared to the prior examination(s).
[2018-05-10] MEDS ORDERED: Iodixanol 320 MG/ML 100 ML BOTTLE IV ONE (19:36)
[2018-05-10] MEDS ORDERED: Sodium Chloride 0.9% 50 ML IV ONE (19:36)
[2018-05-10] MEDS ORDERED: Piperacillin/Tazobact 3.375 GM in Sodium Chloride 0.9% 100 ML IV STA (20:50)
[2018-05-10] MEDS ORDERED: VANCOMYCIN IV STA (20:53)
[2018-05-10] MEDS ORDERED: SODIUM CHLORIDE 0.9% IV STA (20:53)
[2018-05-10] MEDS ORDERED: Piperacillin/Tazobact 3.375 gm Inj IVPB ONE (21:45)
[2018-05-10] MEDS ORDERED: Azithromycin 500 MG IV IVPB ONE (23:23)
[2018-05-11] MEDS: Brimonidine 0.2% 50 DROP/5 ML BOTTLE OU SCH ×2 (08:30→21:32)
[2018-05-11] MEDS: Lidocaine 5% Patch TD SCH (08:31)
[2018-05-11] MEDS: Multivitamin With Minerals Tab PO SCH (08:32)
[2018-05-11] MEDS: Azithromycin 500 MG in Sodium Chloride 0.9% 250 ML IVPB SCH (08:38)
[2018-05-11] MEDS: Enoxaparin 40 mg Syringe SC SCH (08:38)
[2018-05-11] MEDS ORDERED: Brimonidine 0.2% 50 DROP/5 ML BOTTLE OU SCH (09:00)
[2018-05-11] MEDS ORDERED: Multivitamin With Minerals Tab PO SCH (09:00)
[2018-05-11] MEDS ORDERED: Piperacillin/Tazobact 3.375 GM in Sodium Chloride 0.9% 100 ML IVPB SCH (09:00)
[2018-05-11] MEDS: Piperacillin/Tazobact 3.375 GM in Sodium Chloride 0.9% 100 ML IVPB SCH ×3 (10:00→21:30)
--- NOTE | 2018-05-11 11:11 | CT ---
Date of service: 05/10/2018 PROCEDURE: CT Chest with contrast (Pulmonary Angiogram) HISTORY: sob COMPARISON: Comparison made with prior CTA chest dated 10/20/2017 TECHNIQUE: Axial computed tomography images were obtained of the chest in the pulmonary arterial phase of enhancement. Coronal and sagittal reformatted images were created and reviewed. Intravenous contrast dose: 66 cc Visipaque 320 contrast material Radiation dose: Total exam DLP = 309.96 mGy-cm. This CT exam was performed using one or more of the following dose reduction techniques: Automated exposure control, adjustment of the mA and/or kV according to patient size, and/or use of iterative reconstruction technique. FINDINGS: PULMONARY ARTERIES: The visualized pulmonary trunk, right and left main, lobar, segmental and proximal subsegmental branches of the pulmonary arteries are well opacified with no definitive filling defects seen to suggest acute central pulmonary embolus. Pulmonary trunk measures approximately 21.3 mm. AORTA: No acute findings. No thoracic aortic aneurysm.. Minimal aortic atherosclerotic calcification and mural plaque. Ascending thoracic aorta measures approximately 28 mm and descending thoracic aorta measures approximately 22 mm. Three-vessel arch. LUNGS: Previously noted bilateral nodular infiltrates improved however the changes remain somewhat most pronounced in the superior aspect right upper lobe and to a lesser degree left upper lobe as well... Minor nodular changes seen in the right lower and middle lobes as well. Mild passive/dependent type atelectasis both posterior lower lung louie. PLEURAL SPACES: Unremarkable. No effusion or pneumothorax. HEART: Heart size is within range of normal. No significant pericardial effusion. LYMPH NODES: Small prevascular and paratracheal lymph nodes are present.. There is a small hiatal hernia with minimal wall thickening of the distal esophagus likely due to protrusion gastric mucosa. Trachea midline and patent. Mainstem bronchi appear patent. BONES, CHEST WALL: Multilevel degenerative spondylosis of the thoracic spine. No acute compression fractures no retropulsed fragments. Also again seen is a small sclerotic elliptical shaped density within the left aspect T12 vertebral body segment most likely representing a small osteoma or bone island. OTHER FINDINGS: Cholecystectomy. Redemonstrated is a large exophytic cyst right kidney IMPRESSION: .No evidence of acute central pulmonary embolus. Persistent but improved nodular infiltrates in the upper lobes bilaterally right greater than left See above discussion for additional details and findings.
--- NOTE | 2018-05-11 12:08 | CARD ---
APPROVED REPORT Date of service: 05/10/2018 EKG Measurement Heart [id number] 200P-9 [id number] <Conclusion> Normal sinus rhythm Voltage criteria for left ventricular hypertrophy Abnormal ECG
[2018-05-11] MEDS ORDERED: Pneumococcal 23-Valent Vaccine IM ONE (18:14)
[2018-05-12] MEDS: Piperacillin/Tazobact 3.375 GM in Sodium Chloride 0.9% 100 ML IVPB SCH ×4 (03:40→21:00)
[2018-05-12 07:33] LABS: HEMOGLOBIN 13.4 g/dL (12.0-16.0); MEAN CELL VOLUME 96.1 fl (81.0-99.0); MEAN CORPUSCULAR HEMOGLOBIN 32.4 pg (27.0-31.0); MEAN CORPUSCULAR HGB CONC 33.7 g/dL (33.0-37.0); RBC 4.13 Mil/uL (3.80-5.20); RED CELL DISTRIBUTION WIDTH 14.4 % (11.5-14.5); WHITE BLOOD COUNT 4.9 K/uL (4.8-10.8)
[2018-05-12 07:53] LABS: ALBUMIN 3.2 g/dL (3.5-5.0); ALT/SGPT 37 U/L (9-52); AST/SGOT 25 U/L (14-36); BLOOD UREA NITROGEN 15 mg/dl (7-17); CALCIUM 8.6 mg/dL (8.4-10.2); GFR NON-AFRICAN AMERICAN > 60
[2018-05-12] MEDS: Brimonidine 0.2% 50 DROP/5 ML BOTTLE OU SCH ×2 (08:33→20:58)
[2018-05-12] MEDS: Enoxaparin 40 mg Syringe SC SCH (08:33)
[2018-05-12] MEDS: Lidocaine 5% Patch TD SCH (08:35)
[2018-05-12] MEDS: Azithromycin 500 MG in Sodium Chloride 0.9% 250 ML IVPB SCH (08:36)
[2018-05-12] MEDS ORDERED: Potassium Chloride 20 mEq ER Tab PO ONE (08:45)
[2018-05-13] MEDS: Piperacillin/Tazobact 3.375 GM in Sodium Chloride 0.9% 100 ML IVPB SCH ×4 (03:41→21:47)
[2018-05-13] MEDS ORDERED: Potassium Chloride 20 mEq ER Tab PO ONE (06:50)
--- NOTE | 2018-05-13 06:59 | HP ---
CHIEF COMPLAINT: Chest pain. HISTORY OF PRESENT ILLNESS: This is an 88-year-old female who was recently discharged from the hospital after treatment of pneumonia and recurrent chest pain for about four hours from the day of admission. The patient was brought to the emergency room and was admitted for further management. REVIEW OF SYSTEMS: Positive for chest pain on admission although at this time review of systems is negative for headache, dizziness, syncope, loss of consciousness, chest pain, shortness of breath, nausea, vomiting, diarrhea, constipation, any new joint or extremity pain. PAST MEDICAL HISTORY: Significant for hypertension, aortic sclerosis, osteoporosis, and dementia. PAST SURGICAL HISTORY: Remarkable for section and chest pain. PERSONAL HISTORY: The patient is currently nonsmoker, nondrinker. No substance abuse. MEDICATIONS: The patient is on multiple medications, which is as per reconciliation sheet, which was reviewed and ordered. ALLERGIES: THE PATIENT IS NOT ALLERGIC TO ANY MEDICATIONS. FAMILY HISTORY: Noncontributory. PHYSICAL EXAMINATION: GENERAL: A well built, well nourished, 88-year-old female, in no acute distress. VITAL SIGNS: Temperature 98, pulse 81, respirations 19, blood pressure 126/72, and saturation 96%. HEENT: Pupils reacting to light. No JVD. No thyromegaly. No lymphadenopathy. No nystagmus. Normocephalic and atraumatic skull. HEART: S1 and S2. Normal and regular. No significant murmur, gallop or rub is heard. LUNGS: Shows good bilateral air exchange. No rales or rhonchi. ABDOMEN: Soft and nontender. No organomegaly. No fluid. Bowel sounds are plus and normal. EXTREMITIES: No edema. No calf swelling. No tenderness. No acute ischemia. CENTRAL NERVOUS SYSTEM: Exam is essentially unchanged. DIAGNOSTIC DATA: Available diagnostic data reviewed. WBC is , hemoglobin 15.1, hematocrit 44.6, platelets 207. PT and PTT is unremarkable. Sodium 141, potassium 4, chloride 106, bicarb 27, BUN 13, creatinine 0.6. SMA-12 is unremarkable. Urinalysis is negative. Chest x-ray is clear. CAT scan is apparently negative for PE. However, the patient did have pneumonia. ADMITTING IMPRESSION: 1. Pneumonia. 2. Chest pain, rule out acute coronary syndrome. 3. Hypertension. 4. Glaucoma. PLAN: As ordered. Guillaume Almonte MD
--- NOTE | 2018-05-13 08:45 | PN ---
DATE: 05/12/2018 SUBJECTIVE: The patient seen and examined. Interim events noted. The patient remains in regular medical floor. The patient feels okay. Denies any specific complaint. No chest pain. No shortness of breath. No significant issues reported by nursing staff. PHYSICAL EXAMINATION: GENERAL: The patient is in no acute distress. VITAL SIGNS: Stable. HEART: S1 and S2, normal and regular. LUNGS: Good bilateral air exchange. ABDOMEN: Soft and nontender. EXTREMITIES: No edema. No calf swelling. No tenderness. No acute ischemia. CENTRAL NERVOUS SYSTEM: Exam is essentially unchanged. DIAGNOSTIC DATA: Available diagnostic data reviewed. ASSESSMENT AND PLAN: Overall, the patient's general medical condition is stable. Plan as ordered. Guillaume Almonte MD
[2018-05-13] MEDS: Multivitamin With Minerals Tab PO SCH (08:50)
[2018-05-13] MEDS: Azithromycin 500 MG in Sodium Chloride 0.9% 250 ML IVPB SCH (09:03)
[2018-05-13] MEDS: Enoxaparin 40 mg Syringe SC SCH (09:04)
[2018-05-13] MEDS: Lidocaine 5% Patch TD SCH (09:06)
[2018-05-13] MEDS: Brimonidine 0.2% 50 DROP/5 ML BOTTLE OU SCH ×2 (09:06→21:49)
--- NOTE | 2018-05-13 12:55 | PN ---
DATE: 05/13/2018 SUBJECTIVE: The patient seen and examined. Interim events noted. The patient remains in regular medical floor. Sleeping, arousable. Feels okay. Denies any chest pain, shortness of breath, coughing or any issues with passing urine or stool. PHYSICAL EXAMINATION: GENERAL: The patient is in no acute distress. VITAL SIGNS: Stable. HEART: S1 and S2. Normal and regular. LUNGS: Good bilateral air exchange. ABDOMEN: Soft, nontender. EXTREMITIES: No edema. No calf swelling. No tenderness. No acute ischemia. CENTRAL NERVOUS SYSTEM: Exam is essentially unchanged. DIAGNOSTIC DATA: Available diagnostic data reviewed. CAT scan showed improving pneumonia. ASSESSMENT AND PLAN: Overall, the patient is clinically stable and improving. Plan as ordered. Guillaume Almonte MD
--- NOTE | 2018-05-13 16:25 | RAD ---
Date of service: 05/13/2018 HISTORY: F/u pneumonia COMPARISON: Portable chest 05/10/2018. FINDINGS: LUNGS: No active pulmonary disease. PLEURA: No significant pleural effusion identified, no pneumothorax apparent. CARDIOVASCULAR: No atherosclerotic calcification present Normal. OSSEOUS STRUCTURES: No significant abnormalities. VISUALIZED UPPER ABDOMEN: Normal. OTHER FINDINGS: None. IMPRESSION: No interval acute cardiopulmonary disease appreciated.
[2018-05-14 00:39] VITALS: O2SAT 95
[2018-05-14] MEDS: Piperacillin/Tazobact 3.375 GM in Sodium Chloride 0.9% 100 ML IVPB SCH (04:24)
[2018-05-14 06:30] LABS: HEMOGLOBIN 13.7 g/dL (12.0-16.0); MEAN CELL VOLUME 96.2 fl (81.0-99.0); MEAN CORPUSCULAR HEMOGLOBIN 32.6 pg (27.0-31.0); MEAN CORPUSCULAR HGB CONC 33.8 g/dL (33.0-37.0); RBC 4.19 Mil/uL (3.80-5.20); RED CELL DISTRIBUTION WIDTH 14.2 % (11.5-14.5); WHITE BLOOD COUNT 5.2 K/uL (4.8-10.8)
[2018-05-14 06:55] LABS: ALBUMIN 3.5 g/dL (3.5-5.0); ALT/SGPT 33 U/L (9-52); AST/SGOT 29 U/L (14-36); BLOOD UREA NITROGEN 9 mg/dl (7-17); GFR NON-AFRICAN AMERICAN > 60
[2018-05-14 08:29] VITALS: BP 123/75; PULSE 81; RESP 20; TEMP 98.4
[2018-05-14] MEDS: Lidocaine 5% Patch TD SCH (09:44)
[2018-05-14] MEDS: Brimonidine 0.2% 50 DROP/5 ML BOTTLE OU SCH (09:44)
[2018-05-14] MEDS: Multivitamin With Minerals Tab PO SCH (09:46)
[2018-05-14] MEDS: Enoxaparin 40 mg Syringe SC SCH (09:46)
--- NOTE | 2018-05-14 12:43 | CP.PCM.HP ---
History of Present Illness - History of Present Illness History of Present Illness: 88 year old female with PMH of dementia, HTN, and HCL, presented to ED via EMS for an evaluation of shortness of breath and tremur witnessed by family approximately 4 hours prior to arrival. Family notes the tremur waxes and wanes intermittently since onset. No reports of chest pain, lightheadedness, cough, vomiting, decreased appetite, or change in medication. Patient was recently evaluated at [facility] for virus illness and dehydration then found to have pneumonia. She was discharged on Levaquin, in which, she co mpleted. Additionally, patient was recently diagnosed with a 2nd degree heart block and currently awaiting follow-up with auto service dispatcher at the end of the month. PMH: Dementia, HTN, Hypercholesterolemia, Osteoporosis PSH: Cholecystectomy, Meds: see tanya FMH: denies NKDA SH: denies smoking, etoh or ilicit drugs use Present on Admission - Present on Admission Any Indicators Present on Admission: No Review of Systems - Review of Systems All systems: reviewed and no additional remarkable complaints except (HPI) Past Patient History - Past Medical History & Family History Past Medical History?: Yes - Past Social History Smoking Status: Never Smoked - CARDIAC Hx Hypercholesterolemia: Yes Hx Hypertension: Yes - PULMONARY Hx Respiratory Disorders: No - NEUROLOGICAL Hx Dementia: Yes - HEENT Hx HEENT Problems: No - RENAL Hx Chronic Kidney Disease: No - ENDOCRINE/METABOLIC Hx Endocrine Disorders: No - HEMATOLOGICAL/ONCOLOGICAL Hx Human Immunodeficiency Virus (HIV): No - INTEGUMENTARY Hx Dermatological Problems: No - MUSCULOSKELETAL/RHEUMATOLOGICAL Hx Osteoporosis: Yes - GENITOURINARY/GYNECOLOGICAL Hx Genitourinary Disorders: No - PSYCHIATRIC Hx Psychophysiologic Disorder: No Hx Substance Use: No - SURGICAL HISTORY Hx Cholecystectomy: Yes - ANESTHESIA Hx Anesthesia: Yes Hx Anesthesia Reactions: No Meds Home Medications: Home Medication List Medication Instructions Recorded Confirmed Type Cefpodoxime [Vantin] 200 mg PO DAILY #7 tab 05/14/18 Rx Allergies/Adverse Reactions: Allergies Allergy/AdvReac Type Severity Reaction Status Date / Time No Known Allergies Allergy Verified 05/10/18 16:43 Physical Exam - Constitutional Appears: No Acute Distress - Head Exam Head Exam: NORMAL INSPECTION - Respiratory Exam Respiratory Exam: Clear to Auscultation Bilateral - Cardiovascular Exam Cardiovascular Exam: REGULAR RHYTHM, +S1, +S2 - GI/Abdominal Exam GI & Abdominal Exam: Normal Bowel Sounds, Soft. absent: Tenderness - Extremities Exam Extremities exam: Negative for: calf tenderness - Neurological Exam Neurological exam: Alert, Oriented x3 - Skin Skin Exam: Dry, Warm Results - Vital Signs Recent Vital Signs: Last Vital Signs Temp 98.4 F 05/14/18 08:28 Pulse 81 05/14/18 09:45 Resp 20 05/14/18 08:28 BP 123/75 05/14/18 09:45 Pulse Ox 95 05/14/18 08:28 - Labs Result Diagrams: 05/14/18 05:40 05/14/18 05:40 Labs: Laboratory Results - last 24 hr 05/14/18 05/14/18 05:40 05:40 WBC 5.2 RBC 4.19 Hgb 13.7 Hct 40.4 MCV 96.2 MCH 32.6 H MCHC 33.8 RDW 14.2 Plt Count 168 Sodium 139 Potassium 3.9 Chloride 107 Carbon Dioxide 24 Anion Gap 12 BUN 9 Creatinine 0.6 L Est GFR ( Amer) > 60 Est GFR (Non-Af Amer) > 60 Random Glucose 92 Calcium 9.0 Total Bilirubin 0.4 AST 29 ALT 33 Alkaline Phosphatase 74 Total Protein 6.9 Albumin 3.5 Globulin 3.4 Albumin/Globulin Ratio 1.0 Assessment & Plan - Assessment and Plan (Free Text) Assessment: 88 year old female with pmHx of dementia, HTN, and HCL admitted due to atypical pneumonia Plan: Afebrile, VSS Chest CT: scattered reticulonodular confluent infiltrates in the upper lobes bilaterally start azithromycin IV and vanco f/u labs in am rest of plan as ordered case seen and examined with Dr Almonte
--- NOTE | 2018-05-14 13:47 | PN ---
DATE: 05/14/2018 SUBJECTIVE: The patient is seen and examined. Interim events noted. The patient remains in regular medical floor. The patient feels okay. Denies any cough, chest pain, shortness of breath. The patient is ambulatory, doing her ADL. PHYSICAL EXAMINATION: GENERAL: The patient is in no acute distress. VITAL SIGNS: Stable. HEART: S1 and S2, normal and regular. LUNGS: Good bilateral air exchange. ABDOMEN: Soft and nontender. EXTREMITIES: No edema. No calf swelling. No tenderness. No acute ischemia. CENTRAL NERVOUS SYSTEM: Essentially unchanged. DIAGNOSTIC DATA: Available diagnostic data reviewed. ASSESSMENT AND PLAN: Overall, the patient's general medical condition is stable. Plan as ordered. Guillaume Almonte MD
--- NOTE | 2018-05-14 18:04 | CP.PCM.DIS ---
Provider - Provider Date of Admission: 05/10/18 20:55 Attending physician: Guillaume Almonte MD Time Spent in preparation of Discharge (in minutes): 38 Diagnosis - Discharge Diagnosis (1) Pneumonia Status: Acute (2) Dyspnea Status: Acute Hospital Course - Lab Results Lab Results: Micro Results 05/10/18 17:00 Blood-Venous Blood Culture - Preliminary NO GROWTH AFTER 4 DAYS 05/10/18 17:40 Blood-Venous Blood Culture - Preliminary NO GROWTH AFTER 4 DAYS 05/10/18 17:50 Urine,Clean Catch Urine Culture - Final No Growth (<1,000 CFU/ML) Most Recent Lab Values WBC 5.2 K/uL (4.8-10.8) 05/14/18 05:40 RBC 4.19 Mil/uL (3.80-5.20) 05/14/18 05:40 Hgb 13.7 g/dL (12.0-16.0) 05/14/18 05:40 Hct 40.4 % (34.0-47.0) 05/14/18 05:40 MCV 96.2 fl (81.0-99.0) 05/14/18 05:40 MCH 32.6 pg (27.0-31.0) H 05/14/18 05:40 MCHC 33.8 g/dL (33.0-37.0) 05/14/18 05:40 RDW 14.2 % (11.5-14.5) 05/14/18 05:40 Plt Count 168 K/uL (130-400) 05/14/18 05:40 MPV 9.8 fl (7.2-11.7) 05/10/18 17:50 Neut % (Auto) 50.3 % (50.0-75.0) 05/10/18 17:50 Lymph % (Auto) 35.6 % (20.0-40.0) 05/10/18 17:50 Sac % (Auto) 12.0 % (0.0-10.0) H 05/10/18 17:50 Eos % (Auto) 1.6 % (0.0-4.0) 05/10/18 17:50 Baso % (Auto) 0.5 % (0.0-2.0) 05/10/18 17:50 Neut # (Auto) 3.6 K/uL (1.8-7.0) 05/10/18 17:50 Lymph # (Auto) 2.6 K/uL (1.0-4.3) 05/10/18 17:50 Sac # (Auto) 0.9 K/uL (0.0-0.8) H 05/10/18 17:50 Eos # (Auto) 0.1 K/uL (0.0-0.7) 05/10/18 17:50 Baso # (Auto) 0.0 K/uL (0.0-0.2) 05/10/18 17:50 PT 12.2 Seconds (9.8-13.1) 05/10/18 17:50 INR 1.1 05/10/18 17:50 APTT 33.8 Seconds (25.6-37.1) 05/10/18 17:50 Sodium 139 mmol/l (132-148) 05/14/18 05:40 Potassium 3.9 MMOL/L (3.6-5.0) 05/14/18 05:40 Chloride 107 mmol/L (98-107) 05/14/18 05:40 Carbon Dioxide 24 mmol/L (22-30) 05/14/18 05:40 Anion Gap 12 (10-20) 05/14/18 05:40 BUN 9 mg/dl (7-17) 05/14/18 05:40 Creatinine 0.6 mg/dl (0.7-1.2) L 05/14/18 05:40 Est GFR ( Amer) > 60 05/14/18 05:40 Est GFR (Non-Af Amer) > 60 05/14/18 05:40 POC Glucose (mg/dL) 97 mg/dL (65-110) 05/10/18 16:58 Random Glucose 92 mg/dL (65-105) 05/14/18 05:40 Lactic Acid 0.9 MMOL/L (0.7-2.1) 05/10/18 17:50 Calcium 9.0 mg/dL (8.4-10.2) 05/14/18 05:40 Phosphorus 3.6 mg/dl (2.5-4.5) 05/10/18 17:50 Magnesium 2.0 MG/DL (1.6-2.3) 05/10/18 17:50 Total Bilirubin 0.4 mg/dl (0.2-1.3) 05/14/18 05:40 AST 29 U/L (14-36) 05/14/18 05:40 ALT 33 U/L (9-52) 05/14/18 05:40 Alkaline Phosphatase 74 U/L (38-126) 05/14/18 05:40 Total Creatine Kinase 78 U/L (30-135) 05/10/18 17:50 Troponin I < 0.0120 ng/mL (0.00-0.120) 05/10/18 17:50 NT-Pro-B Natriuret Pep 127 pg/ml (0-900) 05/10/18 17:50 Total Protein 6.9 G/DL (6.3-8.2) 05/14/18 05:40 Albumin 3.5 g/dL (3.5-5.0) 05/14/18 05:40 Globulin 3.4 gm/dL (2.2-3.9) 05/14/18 05:40 Albumin/Globulin Ratio 1.0 (1.0-2.1) 05/14/18 05:40 Free T4 0.99 ng/dL (0.78-2.19) 05/10/18 17:50 Total T3 1.15 nmol/L (1.49-2.60) L 05/10/18 17:50 Urine Color Yellow (YELLOW) 05/10/18 17:50 Urine Clarity Slighty-cloudy (Clear) 05/10/18 17:50 Urine pH 7.0 (5.0-8.0) 05/10/18 17:50 Ur Specific [place] 1.006 (1.003-1.030) 05/10/18 17:50 Urine Protein Negative mg/dL (NEGATIVE) 05/10/18 17:50 Urine Glucose (UA) Neg mg/dL (Normal) 05/10/18 17:50 Urine Ketones Negative mg/dL (NEGATIVE) 05/10/18 17:50 Urine Blood Negative (NEGATIVE) 05/10/18 17:50 Urine Nitrate Negative (NEGATIVE) 05/10/18 17:50 Urine Bilirubin Negative (NEGATIVE) 05/10/18 17:50 Urine Urobilinogen 0.2-1.0 mg/dL (0.2-1.0) 05/10/18 17:50 Ur Leukocyte Esterase Trace [place]/uL (Negative) 05/10/18 17:50 Urine RBC (Auto) 2 /hpf (0-3) 05/10/18 17:50 Urine Microscopic WBC 6 /hpf (0-5) H 05/10/18 17:50 Ur Squamous Epith Cells 3 /hpf (0-5) 05/10/18 17:50 Urine Bacteria Rare (<OCC) 05/10/18 17:50 Hyaline Casts 0-2 /hpf (0-2) 05/10/18 17:50 - Hospital Course Hospital Course: Patient admitted for pneumonia, received treatment IV abx, stable and symptomatic at dischrge time. Patient with instructions to f/u with PCP next week. Discharge Exam - Head Exam Head Exam: NORMAL INSPECTION - Respiratory Exam Respiratory Exam: Clear to PA & Lateral. absent: Wheezes, Respiratory Distress - Cardiovascular Exam Cardiovascular Exam: REGULAR RHYTHM, +S1, +S2 - GI/Abdominal Exam GI & Abdominal Exam: Soft. absent: Distended, Tenderness - Neurological Exam Neurological exam: Alert, CN II-XII Intact, Oriented x3 - Skin Skin Exam: Dry, Warm Discharge Plan - Discharge Medications Prescriptions: Cefpodoxime [Vantin] 200 mg PO DAILY #7 tab - Follow Up Plan Condition: FAIR Disposition: DISCHARGED TO HOME CARE Instructions: Community-Acquired Pneumonia, Adult (DC) Additional Instructions: janes Almonte a las 11am Referrals: Guillaume Almonte MD [Staff Provider] -
--- NOTE | 2018-05-17 06:44 | PQF ---
PROVIDER RESPONSE TEXT: ACS RULED OUT REVIEWER QUERY TEXT: Rule Out Condition Clarification -Patient has condition -Condition was ruled out Please provide corresponding diagnosis for patient's clinical picture and associated treatment -Patient had condition which is now resolved -Other (please specify) -Clinically unable to determine -Unknown The patient's Clinical Indicators include: Admitted with SOB, tremors and chest pain. EKG: Normal sinus rhythm ,Voltage criteria for left ventricular Troponin x 1 normal Medication:Lopressor Query created by: Monica Vidal on 05/14/2018 11:35 AM Electronically signed by: Guillaume Almonte 05/17/2018 6:41 AM
--- NOTE | 2018-05-17 06:44 | PQF ---
PROVIDER RESPONSE TEXT: Bacterial Pneumonia REVIEWER QUERY TEXT: Pneumonia Specificity Pneumonia is documented in the Medical Record. Please specify the type of pneumonia and the causative organism (includes probable or suspected) HCAP, CAP merely represent the method of acquisition and n ot the specific type of pneumonia Such as: Type: -- Aspiration pneumonia (please also specify the aspirate) -- Bacterial (please document suspected or probable organism) -- Bronchopneumonia (please document suspected or probable organism) -- Interstitial pneumonia -- Organizing pneumonia / BOOP -- Pneumonia with influenza, manny flu, or H1N1 flu -- RSV -- Tuberculosis, pulmonary -- Viral -- Other, please specify The patient's Clinical Indicators include: Admitted with SOB and tremors as per the ER. Patient was recently evaluated at [facility] for virus illness and dehydration then found to have pneumonia. She was discharged on Levaquin, i n which, she completed. CT ANGIO: Reticulonodular infiltrate associated with tree-in-bud nodularity, in the upper lobes bilat erally as described. This is compatible with atypical pneumonia. No evidence of pulmonary embolism. Query created by: Monica Vidal on 05/13/2018 6:59 AM Electronically signed by: Gulilaume Almonte 05/17/2018 6:41 AM
== END 2018-05-14 15:50 | disposition home health service (06) | DRG 195 ==
LOC: H.ER 16:38 → H.ERHOLD 20:55 → H.MEDSURG1 05-11 00:52
PROVIDERS: ADMIT Internal Medicine; ATTEND Internal Medicine
PROC: 3E0234Z Introduction of Serum, Toxoid and Vaccine into Muscle, Percutaneous Approach (ICD-10-PCS; principal; 2018-05-12)
DX: J15.9 Unspecified bacterial pneumonia (principal); I44.1 Atrioventricular block, second degree; I70.0 Atherosclerosis of aorta; F03.90 Unspecified dementia, unspecified severity, without behavioral disturbance, psychotic disturbance, mood disturbance, and anxiety; I10 Essential (primary) hypertension; M81.0 Age-related osteoporosis without current pathological fracture; E78.00 Pure hypercholesterolemia, unspecified; H40.9 Unspecified glaucoma; Z23 Encounter for immunization

== ENCOUNTER 2018-09-05 14:44 | Emergency (ER) | payer MEDICARE, OTHER ==
[2018-09-05 14:47] VITALS: RESP 18; TEMP 98.2; O2SAT 100
--- NOTE | 2018-09-05 15:09 | ED PDOC ---
HPI: General Adult Time Seen by Provider: 09/05/18 15:04 Chief Complaint (Nursing): Weakness/Neurological Deficit Chief Complaint (Provider): weakness History Per: Patient (88 y/o female h/o Dementia/HTN/HLD here for weakness. Denies any fevers/chills/etc. Noted shaking in ED. EMS states patient lives in assisted living and her friends called ambulane.) Past Medical History Reviewed: Historical Data, Nursing Documentation, Vital Signs Vital Signs: Last Vital Signs Temp 98.2 F 09/05/18 14:45 Pulse 97 H 09/05/18 14:45 Resp 18 09/05/18 14:45 BP 128/90 09/05/18 14:45 Pulse Ox 100 09/05/18 14:45 - Medical History PMH: Dementia, HTN, Hypercholesterolemia, Osteoporosis Denies: HIV, Chronic Kidney Disease - Surgical History Surgical History: Cholecystectomy, - Family History Family History: States: Unknown Family Hx - Home Medications Home Medications: Ambulatory Orders Medication Instructions Recorded Brimonidine Tartrate/Timolol 1 drop EACHEYE Q12 05/10/18 [Combigan 0.2%-0.5% Eye Drops] Famotidine [Pepcid] 20 mg PO BID 05/10/18 Lidocaine 5% [Lidoderm] 1 patch TD DAILY PRN 05/10/18 Multivitamin [Multi-Vitamin Daily] 1 tab PO DAILY 05/10/18 amLODIPine [Norvasc] 2.5 mg PO DAILY 05/10/18 Levothyroxine [Synthroid] 25 mcg PO DAILY 09/05/18 Memantine HCl/Donepezil HCl 1 cap PO DAILY 09/05/18 [Namzaric 28 mg-10 mg Capsule] Sertraline [Zoloft] 25 mg PO DAILY 09/05/18 - Allergies Allergies/Adverse Reactions: Allergies Allergy/AdvReac Type Severity Reaction Status Date / Time No Known Allergies Allergy Verified 05/10/18 16:43 Review of Systems ROS Statement: Except As Marked, All Systems Reviewed And Found Negative Physical Exam - Reviewed Nursing Documentation Reviewed: Yes Vital Signs Reviewed: Yes - Physical Exam Appears: Positive for: Well, Non-toxic, No Acute Distress Head Exam: Positive for: ATRAUMATIC, NORMAL INSPECTION, NORMOCEPHALIC Skin: Positive for: Normal Color, Warm, DRY Eye Exam: Positive for: EOMI, Normal appearance, PERRL ENT: Positive for: Normal ENT Inspection Neck: Positive for: Normal, Painless ROM Cardiovascular/Chest: Positive for: Regular Rate, Rhythm Respiratory: Positive for: CNT, Normal Breath Sounds Gastrointestinal/Abdominal: Positive for: Normal Exam, Soft Back: Positive for: Normal Inspection Extremity: Positive for: Normal ROM Neurologic/Psych: Positive for: Alert, Oriented - Laboratory Results Result Diagrams: 09/05/18 15:15 09/05/18 15:15 - ECG O2 Sat by Pulse Oximetry: 100 - Progress ED Course And Treament: spoke with daughter Umu [phone] States patient's home-maker did not arrive today and she became anxious. She went and knocked on neighbor's door stating she did not feel well and neighbor called ambulance. Patient calm in ED. Eating and comfortable. Daughter to come pick her up after work. Disposition - Clinical Impression Clinical Impression: Anxiety - Patient ED Disposition Is Patient to be Admitted: No - Disposition Disposition: Routine/Home Disposition Time: 18:04 Condition: FAIR Instructions: Anxiety, Adult (DC) Print Language: CYPRIOT
[2018-09-05 15:42] LABS: VENOUS BLOOD GAS BASE EXCESS 3.7 mmol/L (0.0-2.0); VENOUS BLOOD GAS PCO2 43 mmHg (40-60); VENOUS BLOOD GAS PO2 27 mm/Hg (30-55); VENOUS BLOOD PH 7.43 (7.32-7.43)
[2018-09-05 15:48] LABS: BASO % 0.5 % (0.0-2.0); EOS # 0.1 K/uL (0.0-0.7); EOS % 0.8 % (0.0-4.0); HEMOGLOBIN 15.3 g/dL (12.0-16.0); LYMPH # 2.4 K/uL (1.0-4.3); LYMPH % 29.4 % (20.0-40.0); MEAN CELL VOLUME 94.5 fl (81.0-99.0); MEAN CORPUSCULAR HEMOGLOBIN 32.5 pg (27.0-31.0); MEAN CORPUSCULAR HGB CONC 34.4 g/dL (33.0-37.0); MEAN PLATELET VOLUME 9.7 fl (7.2-11.7); MONO % 13.1 % (0.0-10.0); NEUT # 4.5 K/uL (1.8-7.0); NEUT % 56.2 % (50.0-75.0); NRBC % 0.1 % (0.0-0.0); RBC 4.71 Mil/uL (3.80-5.20); RED CELL DISTRIBUTION WIDTH 13.6 % (11.5-14.5)
[2018-09-05 15:54] LABS: ALB/GLOB RATIO 1.2 (1.0-2.1); ALBUMIN 4.4 g/dL (3.5-5.0); ALT/SGPT 25 U/L (9-52); AST/SGOT 28 U/L (14-36); BLOOD UREA NITROGEN 14 mg/dl (7-17); CALCIUM 9.9 mg/dL (8.4-10.2); GFR NON-AFRICAN AMERICAN > 60
--- NOTE | 2018-09-05 16:00 | RAD ---
Date of service: 09/05/2018 HISTORY: routine COMPARISON: 05/13/2018. FINDINGS: LUNGS: The lungs are well inflated and clear. PLEURA: No pleural effusions or pneumothorax. CARDIOVASCULAR: The heart is normal in size. No aortic atherosclerotic calcifications present. OSSEOUS STRUCTURES: Within normal limits for the patient's age. VISUALIZED UPPER ABDOMEN: Normal. OTHER FINDINGS: Surgical clips in the right upper quadrant are related to prior cholecystectomy. IMPRESSION: No active pulmonary disease.
[2018-09-05 19:05] LABS: SQUAMOUS EPITHIAL 6 /hpf (0-5); URINE BACTERIA RARE (<OCC); URINE BILIRUBIN NEGATIVE (NEGATIVE); URINE BLOOD NEGATIVE (NEGATIVE); URINE CALCIUM OXALATE CRYSTALS MANY /hpf (<OCC); URINE CLARITY CLOUDY (Clear); URINE COLOR BLUE (YELLOW); URINE GLUCOSE (UA) 50 mg/dL (NEGATIVE); URINE LEUKOCYTE ESTERASE TRACE Leu/uL (Negative); URINE PROTEIN NEGATIVE (NEGATIVE); URINE UROBILINOGEN 0.2-1.0 mg/dL (0.2-1.0)
[2018-09-05 19:42] VITALS: BP 132/84; PULSE 85
== END 2018-09-05 18:04 | disposition home or self-care (01) ==
LOC: H.ER 14:44
DX: F41.9 Anxiety disorder, unspecified (principal); E78.00 Pure hypercholesterolemia, unspecified; F03.90 Unspecified dementia, unspecified severity, without behavioral disturbance, psychotic disturbance, mood disturbance, and anxiety; I10 Essential (primary) hypertension; M81.0 Age-related osteoporosis without current pathological fracture; Z79.899 Other long term (current) drug therapy

== ENCOUNTER 2018-11-02 00:32 | Observation (INO) | payer MEDICARE, OTHER ==
[2018-11-02 01:35] LABS: SQUAMOUS EPITHIAL 1 /hpf (0-5); URINE BACTERIA RARE (<OCC); URINE BILIRUBIN NEGATIVE (NEGATIVE); URINE BLOOD NEGATIVE (NEGATIVE); URINE CLARITY CLEAR (Clear); URINE COLOR COLORLESS (YELLOW); URINE GLUCOSE (UA) NEG (NEGATIVE); URINE LEUKOCYTE ESTERASE NEG Leu/uL (Negative); URINE PROTEIN NEGATIVE (NEGATIVE); URINE UROBILINOGEN 0.2-1.0 mg/dL (0.2-1.0)
--- NOTE | 2018-11-02 01:35 | ED PDOC ---
HPI: Trauma/Fall - HPI Time Seen by Provider: 11/02/18 00:42 Chief Complaint (Nursing): Trauma Chief Complaint (Provider): Trauma History Per: Family (Daughter) History/Exam Limitations: clinical condition Additional Complaint(s): 88 years old female with history of dementia and hypertension brought to ED for evaluation status post a fall. Daughter reports patient fell but unclear how and unclear if there was loss of consciousness. Patient complains of shoulder pain, neck pain, back pain, lower abdominal pain and left elbow pain. She denies chest pain. History is limited by dementia. PMD: Olamide Ortiz Past Medical History Reviewed: Historical Data, Nursing Documentation, Vital Signs Vital Signs: Last Vital Signs Temp 98.5 F 11/02/18 00:38 Pulse 73 11/02/18 00:38 Resp 18 11/02/18 00:38 BP 150/83 11/02/18 00:38 Pulse Ox 97 11/02/18 00:38 - Medical History PMH: Dementia, HTN, Hypercholesterolemia, Osteoporosis Denies: HIV, Chronic Kidney Disease - Surgical History Surgical History: Cholecystectomy, - Family History Family History: States: Unknown Family Hx - Social History Current smoker - smoking cessation education provided: No Alcohol: None Drugs: Denies - Home Medications Home Medications: Ambulatory Orders Medication Instructions Recorded Brimonidine Tartrate/Timolol 1 drop EACHEYE Q12 05/10/18 [Combigan 0.2%-0.5% Eye Drops] Famotidine [Pepcid] 20 mg PO BID 05/10/18 Lidocaine 5% [Lidoderm] 1 patch TD DAILY PRN 05/10/18 Multivitamin [Multi-Vitamin Daily] 1 tab PO DAILY 05/10/18 amLODIPine [Norvasc] 2.5 mg PO DAILY 05/10/18 Levothyroxine [Synthroid] 25 mcg PO DAILY 09/05/18 Memantine HCl/Donepezil HCl 1 cap PO DAILY 09/05/18 [Namzaric 28 mg-10 mg Capsule] Sertraline [Zoloft] 25 mg PO DAILY 09/05/18 - Allergies Allergies/Adverse Reactions: Allergies Allergy/AdvReac Type Severity Reaction Status Date / Time No Known Allergies Allergy Verified 05/10/18 16:43 Review of Systems ROS Statement: Except As Marked, All Systems Reviewed And Found Negative Cardiovascular: Negative for: Chest Pain Gastrointestinal: Positive for: Abdominal Pain (lower) Musculoskeletal: Positive for: Neck Pain, Shoulder Pain, Arm Pain (Left elbow pain), Back Pain Physical Exam - Reviewed Nursing Documentation Reviewed: Yes Vital Signs Reviewed: Yes - Physical Exam Appears: Positive for: No Acute Distress Head Exam: Positive for: ATRAUMATIC, NORMOCEPHALIC Skin: Positive for: Normal Color, Warm, Dry Eye Exam: Positive for: Normal appearance, EOMI, PERRL ENT: Positive for: Normal ENT Inspection Neck: Positive for: Normal (Nontender C-Spine), Painless ROM, Supple Cardiovascular/Chest: Positive for: Regular Rate, Rhythm. Negative for: Murmur Respiratory: Positive for: Normal Breath Sounds. Negative for: Respiratory Distress Gastrointestinal/Abdominal: Positive for: Normal Exam, Soft. Negative for: Tenderness Pelvic Exam: Positive for: Other (Stable) Back: Positive for: Normal Inspection. Negative for: L CVA Tenderness, R CVA Tenderness, Other (Thoracis or lumbar spine tenderness, step off or deformity.) Extremity: Positive for: Normal ROM (upper and lower), Other (bruising and swell ing to left elbow with no deformity). Negative for: Pedal Edema, Deformity Neurological/Psych: Positive for: Awake, Alert, Oriented (at baseline) - Laboratory Results Result Diagrams: 11/02/18 01:30 11/02/18 01:30 - ECG O2 Sat by Pulse Oximetry: 97 (RA) Pulse Ox Interpretation: Normal Medical Decision Making Medical Decision Making: Time: 0050 A/P: possible syncopal episode --Type and screen --CT Abd/Pelvis --CT C-Spine --CT Head --CT Thoracic spine --EKG --Alcohol serum --BMP --Troponin --Drug screen --CBC --PTT --Pt --Toradol 30 mg --Left elbow x-ray --Pelvis x-ray --Urinalysis 0253 CT Head Findings: Mild chronic because inflammatory changes of the ethmoid air cells. There is normal configuration of sella turcica. There are no intra or extra- axial collections. There is no mass effect or midline shift. There is no evidence of hematoma formation. No hydrocephalus is present. The ventricles are symmetrical. No abnormal calcifications are present. There is diffuse age-appropriate cerebellar and cerebral atrophy with proportionally dilated ventricles and cortical sulci. There are bilateral periventricular and subcortical white matter hypolucencies compatible with mild chronic microvascular disease. Otherwise, no significant focal abnormalities are seen either in the posterior fossa or supratentorial compartment. IMPRESSION: 1. Age-appropriate cerebellar and cerebral atrophy. 2. Mild chronic microvascular disease. 3. No evidence of acute intracranial pathology. 0255 CT C-Spine Findings: There are diffuse spondylotic changes. Findings are demonstrated by disc space narrowing, osteophyte formation and degenerative endplate changes. Facet joint arthropathy is noted. No fracture or dislocation is seen. No aggressive bone lesion is noted. Impression: Spondylosis. Multilevel facet joint arthropathy. No acute bone pathology. 0256 CT Thoracic Spine Findings: There are diffuse spondylotic changes. Findings are demonstrated by disc space narrowing, osteophyte formation and degenerative endplate changes. Facet joint arthropathy is noted. No fracture or dislocation is seen. No aggressive bone lesion is noted. Impression: Spondylosis. Multilevel facet joint arthropathy. No acute bone pathology. 0306 CT Abdomen/pelvis: Bilateral basilar hypoventilatory pulmonary changes. Moderate amount of fecal residue in the large bowels. Uncomplicated colonic diverticulosis. Cholecystectomy. 4.7 cm right renal simple cyst. Moderate diffuse spondylosis. Cholecystectomy. The liver is of uniform attenuation without mass or defect. There is no intra or extrahepatic biliary ductal dilatation. The spleen is normal. The pancreas is of normal contour and attenuation characteristics. There is no e vidence of adrenal mass. Both kidneys demonstrate prompt and equal nephrograms. The kidneys are normal in size, shape and configuration. There is no evidence of renal or ureteral mass. No renal or ureteral calculi are identified. There is no hydroureter or hydronephrosis. No evidence for appendicitis. There is no bowel wall thickening. No evidence for small or large bowel obstruction. There is no evidence of abdominal ascites or lymphadenopathy. There is no evidence of intrinsic or extrinsic bladder mass. There is no pelvic ascites or lymphadenopathy. Images of the lung bases show no evidence of pleural or parenchymal mass. There are no pleural effusions. The bony structures are free of lytic or blastic lesions. IMPRESSION: No evidence of acute abdominal or pelvic pathology. Patient will need continuous cardiac monitoring in Tele OBS and further syncope workup Case discussed with DR. Kern who agrees to admission. ScribeAttestation: Documented byKaley Patel, acting as a scribe for Flaco Ortiz MD. Provider ScribeAttestation: All medical record entries made by the Scribe were at my direction and personally dictated by me. I have reviewed the chart and agree that the record accurately reflects my personal performance of the history, physical exam, medical decision making, and the department course for this patient. I have also personally directed, reviewed, and agree with the discharge instructions and disposition. Disposition - Clinical Impression Clinical Impression: Syncope, Head injury - Patient ED Disposition Is Patient to be Admitted: Yes Discussed With DrSuresh: [place] Doctor Will See Patient In The: Hospital Counseled Patient/Family Regarding: Studies Performed, Diagnosis - Disposition Disposition Time: 03:50 Condition: FAIR
[2018-11-02 01:37] LABS: BASO % 0.6 % (0.0-2.0); EOS # 0.1 K/uL (0.0-0.7); EOS % 1.4 % (0.0-4.0); HEMOGLOBIN 14.7 g/dL (12.0-16.0); LYMPH # 2.6 K/uL (1.0-4.3); MEAN CELL VOLUME 95.9 fl (81.0-99.0); MEAN CORPUSCULAR HEMOGLOBIN 31.8 pg (27.0-31.0); MEAN CORPUSCULAR HGB CONC 33.1 g/dL (33.0-37.0); MEAN PLATELET VOLUME 9.6 fl (7.2-11.7); MONO # 0.7 K/uL (0.0-0.8); MONO % 12.8 % (0.0-10.0); NEUT # 1.9 K/uL (1.8-7.0); NEUT % 35.2 % (50.0-75.0); NRBC % 0.1 % (0.0-0.0); RBC 4.63 Mil/uL (3.80-5.20); RED CELL DISTRIBUTION WIDTH 14.7 % (11.5-14.5); WHITE BLOOD COUNT 5.3 K/uL (4.8-10.8)
[2018-11-02 01:46] LABS: BLOOD UREA NITROGEN 12 mg/dl (7-17); CALCIUM 9.6 mg/dL (8.4-10.2); GFR NON-AFRICAN AMERICAN > 60
[2018-11-02 01:48] LABS: INR 0.9; PROTHROMBIN TIME 10.5 Seconds (9.8-13.1)
[2018-11-02 01:49] LABS: BARBITURATES, UR NEGATIVE (NEGATIVE); BENZODIAZEPINES, UR NEGATIVE (NEGATIVE); OPIATES, UR NEGATIVE (NEGATIVE); PHENCYCLIDINE, UR NEGATIVE (NEGATIVE)
[2018-11-02 01:50] LABS: PARTIAL THROMBOPLASTIN TIME 35.7 Seconds (25.6-37.1)
[2018-11-02] MEDS ORDERED: Sodium Chloride 0.9% 50 ML IV ONE (02:13)
[2018-11-02] MEDS ORDERED: Iohexol 300 100 ML IJ ONE (02:13)
[2018-11-02 08:00] VITALS: BMI 19.0
[2018-11-02] MEDS ORDERED: Patient's Own Med (Brimonidine Tartrate/Timolol [Combigan 0.2%-0.5% Eye Drops] 1 DROP) EACHEYE SCH (09:00)
[2018-11-02] MEDS ORDERED: Patient's Own Med (Memantine Hcl/Donepezil Hcl [Namzaric 28 Mg-10 Mg Capsule] 1 CAP) PO SCH (09:00)
[2018-11-02] MEDS ORDERED: Patient's Own Med (Multivitamin [Multi-Vitamin Daily] 1 TAB) PO SCH (09:00)
[2018-11-02] MEDS: Brimonidine 0.2% 50 DROP/5 ML BOTTLE OU SCH ×3 (09:14→16:30)
[2018-11-02] MEDS: Multivitamin With Minerals Tab PO SCH (09:15)
[2018-11-02] MEDS: Levothyroxine 25 MCG TAB PO SCH (09:15)
--- NOTE | 2018-11-02 10:13 | CP.PCM.CON ---
History of Present Illness - History of Present Illness History of Present Illness: This 88-year-old female was hospitalized yesterday when she fell down losing her balance while attempting to get out of bed. Her fall was not witnessed by anybody but her grandson who was in the apartment came to her aid and called emergency help. There has not been a syncopal episode in the past and that has not been repeated falling except 1 year back the patient had had a fall during which she had fractured an arm. The patient ambulates freely in her apartment and goes to an adult daycare center and has been on medications for cognitive dysfunction. She is not a diabetic she has never been a smoker and has never suffered a myocardial infarction and does not have symptoms of congestive cardiac failure. She has been on antihypertensive medications for a long time. The history was obtained from her daughter because the patient has cognitive dysfunction. Physical examination shows an elderly thin female who is lying virtually flat in bed and can carry on a conversation. She appears to be aware of her surroundings. She was breathing comfortably at 14 breaths/min and had a heart rate of 74 bpm regular with a blood pressure of 140/70 mmHg. Her jugular venous pressure was not elevated and there was no edema over the lower extremities. The pedal pulses were well felt. There were no carotid bruits. Extremities were warm and nailbeds were pink. There was no central or peripheral cyanosis. There was no clubbing. The apex was not palpable the first heart sound was normal the second heart sound was mildly muffled but distinctly present. There was a brief ejection systolic murmur in the aortic area conducted to the base of the neck. There was no gallop rhythm there were no rales. Her abdomen was soft liver and spleen were not palpable. Her electrocardiogram showed sinus rhythm with a pattern of left ventricular hypertrophy and QS complexes in V1 and V2 a pattern that was seen on her earlier electrocardiograms and back couple of years. Her echocardiogram today again shows left ventricular hypertrophy with sclerotic aortic leaflets. The left ventricular systolic function was well preserved and the peak aortic valve gradient was 29 mmHg which represents mild aortic stenos is. Her lab data showed a hemoglobin of 14.7 g with a hematocrit of 44.4% her WBC count and platelet counts were normal her BUN/creatinine were 12 and 0.6 mg percent and electrolytes were normal. Impression: Fall because of loss of balance with no corroborating history of syncopal episode. Mild aortic stenosis, hypertension and cognitive dysfunction Her telemetry demonstrates steady sinus rhythm. The patient is stable from cardiovascular point of view and no further workup or intervention is necessary at this juncture. Past Patient History - Past Medical History & Family History Past Medical History?: Yes - Past Social History Smoking Status: unknown, p - CARDIAC Hx Hypercholesterolemia: Yes Hx Hypertension: Yes - PULMONARY Hx Respiratory Disorders: No - NEUROLOGICAL Hx Dementia: Yes - HEENT Hx HEENT Problems: No - RENAL Hx Chronic Kidney Disease: No - ENDOCRINE/METABOLIC Hx Endocrine Disorders: No - HEMATOLOGICAL/ONCOLOGICAL Hx Human Immunodeficiency Virus (HIV): No - INTEGUMENTARY Hx Dermatological Problems: No - MUSCULOSKELETAL/RHEUMATOLOGICAL Hx Falls: Yes Hx Osteoporosis: Yes - GENITOURINARY/GYNECOLOGICAL Hx Genitourinary Disorders: No - PSYCHIATRIC Hx Psychophysiologic Disorder: No Hx Substance Use: No - SURGICAL HISTORY Hx Cholecystectomy: Yes - ANESTHESIA Hx Anesthesia: Yes Hx Anesthesia Reactions: No Meds Allergies/Adverse Reactions: Allergies Allergy/AdvReac Type Severity Reaction Status Date / Time No Known Allergies Allergy Verified 05/10/18 16:43 - Medications Medications: Current Medications Amlodipine Besylate (Norvasc) 2.5 mg PO DAILY [facility] Last Admin: 11/02/18 09:13 Dose: 2.5 mg Brimonidine Tartrate (Alphagan 0.2% Opht) 1 drop OU TID [facility] Last Admin: 11/02/18 09:14 Dose: 1 drop Enoxaparin Sodium (Lovenox) 40 mg SC DAILY [facility]; Protocol Famotidine (Pepcid) 20 mg PO BID [facility] Home Med (Memantine Hcl/Donepezil Hcl [Namzaric 28 Mg-10 Mg Capsule]) 1 cap PO DAILY [facility] Levothyroxine Sodium (Synthroid) 25 mcg PO DAILY@0630 [facility] Last Admin: 11/02/18 09:15 Dose: 25 mcg Lidocaine (Lidoderm) 1 ea TD DAILY PRN PRN Reason: back pain Multivitamins/Minerals (Therapeutic-M Tab) 1 tab PO DAILY [facility] Last Admin: 11/02/18 09:15 Dose: 1 tab Sertraline HCl (Zoloft) 25 mg PO DAILY [facility] Last Admin: 11/02/18 09:15 Dose: 25 mg Timolol Maleate (Timoptic 0.5% Ophth Soln) 1 drop OU Q12 [facility] Last Admin: 11/02/18 09:15 Dose: 1 drop Results - Vital Signs Recent Vital Signs: Last Vital Signs Temp 97.8 F 11/02/18 08:13 Pulse 70 11/02/18 09:13 Resp 20 11/02/18 08:13 BP 145/76 11/02/18 09:13 Pulse Ox 97 11/02/18 08:13 - Labs Result Diagrams: 11/02/18 01:30 11/02/18 01:30 Labs: Laboratory Results - last 24 hr 11/02/18 11/02/18 11/02/18 01:29 01:29 01:30 WBC RBC Hgb Hct MCV MCH MCHC RDW Plt Count MPV Neut % (Auto) Lymph % (Auto) [place] % (Auto) Eos % (Auto) Baso % (Auto) Neut # (Auto) Lymph # (Auto) [place] # (Auto) Eos # (Auto) Baso # (Auto) PT INR APTT Sodium 139 Potassium 4.1 Chloride 104 Carbon Dioxide 28 Anion Gap 11 BUN 12 Creatinine 0.6 L Est GFR ( Amer) > 60 Est GFR (Non-Af Amer) > 60 Random Glucose 94 Calcium 9.6 Troponin I < 0.0120 Urine Color Colorless Urine Clarity Clear Urine pH 7.0 Ur Specific [place] < 1.005 Urine Protein Negative Urine Glucose (UA) Neg Urine Ketones Negative Urine Blood Negative Urine Nitrate Negative Urine Bilirubin Negative Urine Urobilinogen 0.2-1.0 Ur Leukocyte Esterase Neg Urine Microscopic WBC 1 Ur Squamous Epith Cells 1 Urine Bacteria Rare Urine Opiates Screen Negative Urine Methadone Screen Negative Ur Barbiturates Screen Negative Ur Phencyclidine Scrn Negative Ur Amphetamines Screen Negative U Benzodiazepines Scrn Negative U Oth Cocaine Metabols Negative U Cannabinoids Screen Negative Alcohol, Quantitative < 10 Blood Type Antibody Screen BBK History Checked 11/02/18 11/02/18 11/02/18 01:30 01:30 01:30 WBC 5.3 RBC 4.63 Hgb 14.7 Hct 44.4 MCV 95.9 MCH 31.8 H MCHC 33.1 RDW 14.7 H Plt Count 178 MPV 9.6 Neut % (Auto) 35.2 L Lymph % (Auto) 50.0 H [place] % (Auto) 12.8 H Eos % (Auto) 1.4 Baso % (Auto) 0.6 Neut # (Auto) 1.9 Lymph # (Auto) 2.6 [place] # (Auto) 0.7 Eos # (Auto) 0.1 Baso # (Auto) 0.0 PT 10.5 INR 0.9 APTT 35.7 Sodium Potassium Chloride Carbon Dioxide Anion Gap BUN Creatinine Est GFR ( Amer) Est GFR (Non-Af Amer) Random Glucose Calcium Troponin I Urine Color Urine Clarity Urine pH Ur Specific [place] Urine Protein Urine Glucose (UA) Urine Ketones Urine Blood Urine Nitrate Urine Bilirubin Urine Urobilinogen Ur Leukocyte Esterase Urine Microscopic WBC Ur Squamous Epith Cells Urine Bacteria Urine Opiates Screen Urine Methadone Screen Ur Barbiturates Screen Ur Phencyclidine Scrn Ur Amphetamines Screen U Benzodiazepines Scrn U Oth Cocaine Metabols U Cannabinoids Screen Alcohol, Quantitative Blood Type O POSITIVE Antibody Screen Negative BBK History Checked No verified bt
[2018-11-02] MEDS: Enoxaparin 40 mg Syringe SC SCH (10:44)
--- NOTE | 2018-11-02 11:31 | RAD ---
Date of service: 11/02/2018 HISTORY: fall COMPARISON: Chest radiograph dated 09/05/2018. TECHNIQUE: 1 view obtained. FINDINGS: LUNGS: Stable chronic prominence of the bilateral interstitial markings with superimposed pulmonary vascular congestion not excluded. PLEURA: No significant pleural effusion identified, no pneumothorax apparent. CARDIOVASCULAR: Aortic atherosclerotic calcifications. Cardiomediastinal silhouette within normal limits. OSSEOUS STRUCTURES: Unchanged. VISUALIZED UPPER ABDOMEN: Right upper quadrant surgical clips redemonstrated. Excreted intravenous contrast is seen within both renal collecting systems. OTHER FINDINGS: None. IMPRESSION: Stable chronic prominence of the bilateral interstitial markings with superimposed pulmonary vascular congestion not excluded. No focal consolidation or pleural effusion.
--- NOTE | 2018-11-02 11:31 | RAD ---
Date of service: 11/02/2018 PROCEDURE: Radiographs of the left elbow. HISTORY: fall COMPARISON: No prior. TECHNIQUE: 3 views obtained. FINDINGS: BONES: No acute fracture. JOINTS: Degenerative changes. SOFT TISSUES: Normal. JOINT EFFUSION: None. OTHER FINDINGS: None IMPRESSION: No demonstrated fracture or dislocation.
--- NOTE | 2018-11-02 11:42 | CT ---
Date of service: 11/02/2018 PROCEDURE: CT HEAD WITHOUT CONTRAST. HISTORY: fall, syncope COMPARISON: CT head dated 04/21/2016 TECHNIQUE: Axial computed tomography images were obtained through the head/brain without intravenous contrast. Radiation dose: Total exam DLP = 777.64 mGy-cm. This CT exam was performed using one or more of the following dose reduction techniques: Automated exposure control, adjustment of the mA and/or kV according to patient size, and/or use of iterative reconstruction technique. FINDINGS: HEMORRHAGE: No intracranial hemorrhage. BRAIN: No mass effect or edema. Atrophy. Chronic microvascular ischemic changes. VENTRICLES: Unremarkable. No hydrocephalus. CALVARIUM: Unremarkable. PARANASAL SINUSES: Unremarkable as visualized. No significant inflammatory changes. MASTOID AIR CELLS: Unremarkable as visualized. No inflammatory changes. OTHER FINDINGS: None. IMPRESSION: No acute intracranial pathology. Age-related changes. No significant interval change.
--- NOTE | 2018-11-02 11:43 | CT ---
Date of service: 11/02/2018 PROCEDURE: CT Cervical Spine without contrast HISTORY: fall, syncope COMPARISON: None available. TECHNIQUE: Axial computed tomography images were obtained of the cervical spine without the use of intravenous contrast. Coronal and sagittal reformatted images were created and reviewed. Radiation dose: Total exam DLP = 257.07 mGy-cm. This CT exam was performed using one or more of the following dose reduction techniques: Automated exposure control, adjustment of the mA and/or kV according to patient size, and/or use of iterative reconstruction technique. FINDINGS: VERTEBRAE: No fracture. Normal alignment. No destructive bony lesion. DISCS/SPINAL CANAL/NEURAL FORAMINA: Multilevel disc space narrowing with disc osteophyte complex formation PARASPINAL SOFT TISSUES: Unremarkable. OTHER FINDINGS: None. IMPRESSION: No acute fracture. Multilevel degenerative changes.
--- NOTE | 2018-11-02 11:45 | CT ---
Date of service: 11/02/2018 PROCEDURE: CT Thoracic Spine without contrast HISTORY: fall, back pain, syncope COMPARISON: None available. TECHNIQUE: Axial computed tomography images were obtained of the thoracic spine without intravenous contrast. Coronal and sagittal reformatted images were created and reviewed. Radiation dose: Total exam DLP = 617.93 mGy-cm. This CT exam was performed using one or more of the following dose reduction techniques: Automated exposure control, adjustment of the mA and/or kV according to patient size, and/or use of iterative reconstruction technique. FINDINGS: VERTEBRAE: Unremarkable. No fracture. Normal alignment. DISCS/SPINAL CANAL/NEURAL FORAMINA: Multilevel disc space narrowing with disc osteophyte complex formation. PARASPINAL SOFT TISSUES: Unremarkable. OTHER FINDINGS: Large right renal cyst IMPRESSION: No acute fracture. Multilevel degenerative changes.
--- NOTE | 2018-11-02 11:53 | CT ---
Date of service: 11/02/2018 PROCEDURE: CT Abdomen and Pelvis with contrast HISTORY: fall, syncope, lower abdominal pain COMPARISON: CT scan of the abdomen pelvis dated 05/02/2017 TECHNIQUE: Contrast dose: 80 mL Omnipaque 300 Radiation dose: Total exam DLP = 346.28 mGy-cm. This CT exam was performed using one or more of the following dose reduction techniques: Automated exposure control, adjustment of the mA and/or kV according to patient size, and/or use of iterative reconstruction technique. FINDINGS: LOWER THORAX: Unremarkable. LIVER: Hepatic steatosis. No gross lesion or ductal dilatation. GALLBLADDER AND BILE DUCTS: Prior cholecystectomy with surgical clips in place. PANCREAS: Adjacent 1.3 x 0.8 and 1.4 x 0.9 cm cystic structures within the mid/distal pancreatic body (series 3, images 39 and 40). SPLEEN: Unremarkable. ADRENALS: Unremarkable. No mass. KIDNEYS AND URETERS: Large right exophytic renal cyst measuring 5.5 x 5.7 cm no hydronephrosis. No solid mass. VASCULATURE: Unremarkable. No aortic aneurysm. Aortic atherosclerotic calcification and mural plaque present. BOWEL: Diffuse colonic diverticulosis. No obstruction. No gross mural thickening. APPENDIX: Normal appendix. PERITONEUM: Unremarkable. No free fluid. No free air. LYMPH NODES: Unremarkable. No enlarged lymph nodes. BLADDER: Unremarkable. REPRODUCTIVE: Unremarkable. BONES: Multilevel spinal degenerative changes. No acute fracture. OTHER FINDINGS: None. IMPRESSION: No acute abdominal pelvic pathology. Stable appearance of pancreatic cystic structures. Additional stable findings as above.
--- NOTE | 2018-11-02 16:09 | CP.PCM.HP ---
History of Present Illness - History of Present Illness History of Present Illness: CC: Fall History of present illness An 88 years old female with a history of aortic stenosis, hypertension and dementia was brought to the ER due to a fall after losing balance and patient was unable to get up. Her grandson heard the impact and called 911. Not sure if patient has syncopized. Hi history of fall. Patient head CT, cervical spine CT, CT of abdomen and pelvis, chest x-ray, elbow x-ray and thoracic spine CAT scan with no acute finding. Currently patient denies any headache or visual change. Cardiology input appreciated. Present on Admission - Present on Admission Any Indicators Present on Admission: No Review of Systems - Review of Systems All systems: reviewed and no additional remarkable complaints except Review of Systems: Negative except as per HPI Past Patient History - Past Medical History & Family History Past Medical History?: Yes Past Family History: Reviewed and not pertinent - Past Social History Smoking Status: unknown, p Alcohol: None Drugs: Denies - CARDIAC Hx Hypercholesterolemia: Yes Hx Hypertension: Yes - PULMONARY Hx Respiratory Disorders: No - NEUROLOGICAL Hx Dementia: Yes - HEENT Hx HEENT Problems: No - RENAL Hx Chronic Kidney Disease: No - ENDOCRINE/METABOLIC Hx Endocrine Disorders: No - HEMATOLOGICAL/ONCOLOGICAL Hx Human Immunodeficiency Virus (HIV): No - INTEGUMENTARY Hx Dermatological Problems: No - MUSCULOSKELETAL/RHEUMATOLOGICAL Hx Falls: Yes Hx Osteoporosis: Yes - GENITOURINARY/GYNECOLOGICAL Hx Genitourinary Disorders: No - PSYCHIATRIC Hx Psychophysiologic Disorder: No Hx Substance Use: No - SURGICAL HISTORY Hx Cholecystectomy: Yes - ANESTHESIA Hx Anesthesia: Yes Hx Anesthesia Reactions: No Meds Allergies/Adverse Reactions: Allergies Allergy/AdvReac Type Severity Reaction Status Date / Time No Known Allergies Allergy Verified 05/10/18 16:43 Physical Exam - Constitutional Appears: Well, No Acute Distress - Head Exam Head Exam: ATRAUMATIC, NORMAL INSPECTION, NORMOCEPHALIC - Eye Exam Eye Exam: EOMI, Normal appearance, PERRL Pupil Exam: NORMAL ACCOMODATION, PERRL - ENT Exam ENT Exam: Mucous Membranes Moist, Normal Exam - Neck Exam Neck exam: Positive for: Normal Inspection - Respiratory Exam Respiratory Exam: Clear to Auscultation Bilateral, NORMAL BREATHING PATTERN - Cardiovascular Exam Cardiovascular Exam: REGULAR RHYTHM, +S1, +S2 - GI/Abdominal Exam GI & Abdominal Exam: Normal Bowel Sounds, Soft. absent: Tenderness - Extremities Exam Extremities exam: Positive for: normal inspection - Back Exam Back exam: NORMAL INSPECTION - Neurological Exam Neurological exam: Alert, CN II-XII Intact, Normal Gait, Reflexes Normal - Psychiatric Exam Psychiatric exam: Normal Affect, Normal Mood - Skin Skin Exam: Dry, Intact, Normal Color, Warm Results - Vital Signs Recent Vital Signs: Last Vital Signs Temp 98.2 F 11/02/18 12:00 Pulse 74 11/02/18 12:00 Resp 20 11/02/18 12:00 BP 127/77 11/02/18 12:00 Pulse Ox 95 11/02/18 12:00 - Labs Result Diagrams: 11/03/18 07:12 11/03/18 07:12 Labs: Laboratory Results - last 24 hr 11/02/18 11/02/18 11/02/18 01:29 01:29 01:30 WBC RBC Hgb Hct MCV MCH MCHC RDW Plt Count MPV Neut % (Auto) Lymph % (Auto) [place] % (Auto) Eos % (Auto) Baso % (Auto) Neut # (Auto) Lymph # (Auto) [place] # (Auto) Eos # (Auto) Baso # (Auto) PT INR APTT Sodium 139 Potassium 4.1 Chloride 104 Carbon Dioxide 28 Anion Gap 11 BUN 12 Creatinine 0.6 L Est GFR ( Amer) > 60 Est GFR (Non-Af Amer) > 60 Random Glucose 94 Calcium 9.6 Troponin I < 0.0120 Urine Color Colorless Urine Clarity Clear Urine pH 7.0 Ur Specific [place] < 1.005 Urine Protein Negative Urine Glucose (UA) Neg Urine Ketones Negative Urine Blood Negative Urine Nitrate Negative Urine Bilirubin Negative Urine Urobilinogen 0.2-1.0 Ur Leukocyte Esterase Neg Urine Microscopic WBC 1 Ur Squamous Epith Cells 1 Urine Bacteria Rare Urine Opiates Screen Negative Urine Methadone Screen Negative Ur Barbiturates Screen Negative Ur Phencyclidine Scrn Negative Ur Amphetamines Screen Negative U Benzodiazepines Scrn Negative U Oth Cocaine Metabols Negative U Cannabinoids Screen Negative Alcohol, Quantitative < 10 Blood Type Blood Type Confirm Antibody Screen BBK History Checked 11/02/18 11/02/18 11/02/18 01:30 01:30 01:30 WBC 5.3 RBC 4.63 Hgb 14.7 Hct 44.4 MCV 95.9 MCH 31.8 H MCHC 33.1 RDW 14.7 H Plt Count 178 MPV 9.6 Neut % (Auto) 35.2 L Lymph % (Auto) 50.0 H [place] % (Auto) 12.8 H Eos % (Auto) 1.4 Baso % (Auto) 0.6 Neut # (Auto) 1.9 Lymph # (Auto) 2.6 [place] # (Auto) 0.7 Eos # (Auto) 0.1 Baso # (Auto) 0.0 PT 10.5 INR 0.9 APTT 35.7 Sodium Potassium Chloride Carbon Dioxide Anion Gap BUN Creatinine Est GFR ( Amer) Est GFR (Non-Af Amer) Random Glucose Calcium Troponin I Urine Color Urine Clarity Urine pH Ur Specific [place] Urine Protein Urine Glucose (UA) Urine Ketones Urine Blood Urine Nitrate Urine Bilirubin Urine Urobilinogen Ur Leukocyte Esterase Urine Microscopic WBC Ur Squamous Epith Cells Urine Bacteria Urine Opiates Screen Urine Methadone Screen Ur Barbiturates Screen Ur Phencyclidine Scrn Ur Amphetamines Screen U Benzodiazepines Scrn U Oth Cocaine Metabols U Cannabinoids Screen Alcohol, Quantitative Blood Type O POSITIVE Blood Type Confirm Antibody Screen Negative BBK History Checked No verified bt 11/02/18 11/02/18 10:03 12:45 WBC RBC Hgb Hct MCV MCH MCHC RDW Plt Count MPV Neut % (Auto) Lymph % (Auto) [place] % (Auto) Eos % (Auto) Baso % (Auto) Neut # (Auto) Lymph # (Auto) [place] # (Auto) Eos # (Auto) Baso # (Auto) PT INR APTT Sodium Potassium Chloride Carbon Dioxide Anion Gap BUN Creatinine Est GFR ( Amer) Est GFR (Non-Af Amer) Random Glucose Calcium Troponin I < 0.0120 Urine Color Urine Clarity Urine pH Ur Specific [place] Urine Protein Urine Glucose (UA) Urine Ketones Urine Blood Urine Nitrate Urine Bilirubin Urine Urobilinogen Ur Leukocyte Esterase Urine Microscopic WBC Ur Squamous Epith Cells Urine Bacteria Urine Opiates Screen Urine Methadone Screen Ur Barbiturates Screen Ur Phencyclidine Scrn Ur Amphetamines Screen U Benzodiazepines Scrn U Oth Cocaine Metabols U Cannabinoids Screen Alcohol, Quantitative Blood Type Blood Type Confirm O POSITIVE Antibody Screen BBK History Checked - Imaging and Cardiology CT scan - head Status: Report reviewed by me Additional comment: Date of service: 11/02/2018 PROCEDURE: CT HEAD WITHOUT CONTRAST. HISTORY: fall, syncope COMPARISON: CT head dated 04/21/2016 TECHNIQUE: Axial computed tomography images were obtained through the head/brain without intravenous contrast. Radiation dose: Total exam DLP = 777.64 mGy-cm. This CT exam was performed using one or more of the following dose reduction techniques: Automated exposure control, adjustment of the mA and/or kV according to patient size, and/or use of iterative reconstruction technique. FINDINGS: HEMORRHAGE: No intracranial hemorrhage. BRAIN: No mass effect or edema. Atrophy. Chronic microvascular ischemic changes. VENTRICLES: Unremarkable. No hydrocephalus. CALVARIUM: Unremarkable. PARANASAL SINUSES: Unremarkable as visualized. No significant inflammatory changes. MASTOID AIR CELLS: Unremarkable as visualized. No inflammatory changes. OTHER FINDINGS: None. IMPRESSION: No acute intracranial pathology. Age-related changes. No significant interval change. C-Spine CT: Status: Report reviewed by me Additional comment: Date of service: 11/02/2018 PROCEDURE: CT Cervical Spine without contrast HISTORY: fall, syncope COMPARISON: None available. TECHNIQUE: Axial computed tomography images were obtained of the cervical spine without the use of intravenous contrast. Coronal and sagittal reformatted images were created and reviewed. Radiation dose: Total exam DLP = 257.07 mGy-cm. This CT exam was performed using one or more of the following dose reduction techniques: Automated exposure control, adjustment of the mA and/or kV according to patient size, and/or use of iterative reconstruction technique. FINDINGS: VERTEBRAE: No fracture. Normal alignment. No destructive bony lesion. DISCS/SPINAL CANAL/NEURAL FORAMINA: Multilevel disc space narrowing with disc osteophyte complex formation PARASPINAL SOFT TISSUES: Unremarkable. OTHER FINDINGS: None. IMPRESSION: No acute fracture. Multilevel degenerative changes. Assessment & Plan (1) Head injury Status: Acute Priority: High (2) Syncope Status: Acute Priority: High (3) Dementia Status: Acute Priority: Low (4) Recurrent falls Status: Acute Priority: Medium (5) Syncope Status: Acute Priority: Medium - Assessment and Plan (Free Text) Plan: IVF Fall Precaution Cardiology Consult TTE-Done Serial Trop and EKG Tele-monitoring
--- NOTE | 2018-11-02 20:33 | CARD ---
APPROVED REPORT Date of service: 11/02/2018 EKG Measurement Heart [id number] <Conclusion> Normal sinus rhythm Moderate voltage criteria for LVH, may be normal variant Cannot rule out Septal infarct, age undetermined Abnormal ECG
[2018-11-02] MEDS: Lidocaine 5% Patch TD PRN (22:07)
[2018-11-03] MEDS: Levothyroxine 25 MCG TAB PO SCH (05:38)
[2018-11-03 07:54] LABS: BASO % 0.5 % (0.0-2.0); EOS # 0.1 K/uL (0.0-0.7); EOS % 1.9 % (0.0-4.0); HEMOGLOBIN 14.6 g/dL (12.0-16.0); LYMPH # 2.6 K/uL (1.0-4.3); LYMPH % 41.5 % (20.0-40.0); MEAN CELL VOLUME 95.8 fl (81.0-99.0); MEAN CORPUSCULAR HEMOGLOBIN 31.5 pg (27.0-31.0); MEAN CORPUSCULAR HGB CONC 32.9 g/dL (33.0-37.0); MEAN PLATELET VOLUME 9.8 fl (7.2-11.7); MONO # 0.7 K/uL (0.0-0.8); MONO % 10.6 % (0.0-10.0); NEUT # 2.8 K/uL (1.8-7.0); NEUT % 45.5 % (50.0-75.0); NRBC % 0.1 % (0.0-0.0); RBC 4.62 Mil/uL (3.80-5.20); RED CELL DISTRIBUTION WIDTH 15.1 % (11.5-14.5); WHITE BLOOD COUNT 6.3 K/uL (4.8-10.8)
[2018-11-03 07:59] LABS: ALB/GLOB RATIO 1.2 (1.0-2.1); ALBUMIN 3.8 g/dL (3.5-5.0); ALT/SGPT 23 U/L (9-52); AST/SGOT 32 U/L (14-36); BLOOD UREA NITROGEN 13 mg/dl (7-17); CALCIUM 8.8 mg/dL (8.4-10.2); GFR NON-AFRICAN AMERICAN > 60
[2018-11-03] MEDS: Enoxaparin 40 mg Syringe SC SCH (09:02)
[2018-11-03] MEDS: Brimonidine 0.2% 50 DROP/5 ML BOTTLE OU SCH ×3 (09:02→17:03)
[2018-11-03] MEDS: Multivitamin With Minerals Tab PO SCH (09:05)
[2018-11-04] MEDS: Levothyroxine 25 MCG TAB PO SCH (06:36)
--- NOTE | 2018-11-04 08:32 | CARD ---
APPROVED REPORT Date of service: 11/02/2018 EXAM: Two-dimensional and M-mode echocardiogram with Doppler and color Doppler. Other Information Quality : FairRhythm : NSR Technically limited study due to Poor Parasternal window INDICATION Syncope 2D DIMENSIONS IVSd1.26 (0.7-1.1cm)LVDd3.75 (3.9-5.9cm) LVOT Diameter2.02 (1.8-2.4cm)PWd0.95 (0.7-1.1cm) IVSs1.34 (0.8-1.2cm)LVDs2.63 (2.5-4.0cm) FS (%) 29.8 %PWs1.29 (0.8-1.2cm) M-Mode DIMENSIONS Left Atrium (MM)2.65 (2.5-4.0cm)Aortic Root2.81 (2.2-3.7cm) Aortic Cusp Exc.0.88 (1.5-2.0cm) Aortic Valve AoV Peak Nlwzadye845.4cm/sAoV VTI56.7cmAO Peak GR.32mmHg LVOT Peak Wqxrkdgu96.6cm/sLVOT VTI13.29cmAO Mean GR.18mmHg CEASAR (VMAX)0.67ru1YFN (VTI)0.48cm2 Mitral Valve MV E Delsttud77.7cm/sMV DECEL [id number] A Xjhbglev06.4cm/s MV WGP95mxG/A ratio0.6MVA (PHT)2.67cm2 TDI Lateral E' Peak V4.73cm/sMedial E' Peak V4.07cm/sE/Lateral E'12.4 E/Medial E'14.4 LEFT VENTRICLE The left ventricle is normal size. There is moderate concentric left ventricular hypertrophy. Left ventricle systolic function is normal. LVEF is 60-65%. There is normal LV segmental wall motion. Transmitral Doppler flow pattern is Grade I-abnormal relaxation pattern. RIGHT VENTRICLE The right ventricle is normal size. There is normal right ventricular wall thickness. The right ventricular systolic function is normal. ATRIA The left atrium size is normal. The left atrium size is normal. The right atrium size is normal. The right atrium size is normal. AORTIC VALVE The aortic valve is moderately sclerotic. No aortic regurgitation is present. There is mild to moderate valvular aortic stenosis. maximum pressure gradient of 43 mmHg. MITRAL VALVE The mitral valve is normal in structure. There is no evidence of mitral valve prolapse. There is no mitral valve stenosis. Mitral regurgitation is mild. TRICUSPID VALVE The tricuspid valve is normal in structure. There is no tricuspid valve regurgitation noted. PULMONIC VALVE The pulmonary valve is normal in structure. There is no pulmonic valvular regurgitation. GREAT VESSELS The aortic root is normal in size. The IVC was not visualized. PERICARDIAL EFFUSION The pericardium appears normal. <Conclusion> The left ventricle is normal size. There is moderate concentric left ventricular hypertrophy. There is normal LV segmental wall motion. Left ventricle systolic function is normal. LVEF is 60-65%. The aortic valve is moderately sclerotic. There is mild to moderate valvular aortic stenosis. maximum pressure gradient of 43 mmHg.
[2018-11-04 08:53] VITALS: TEMP 98.2
[2018-11-04] MEDS: Brimonidine 0.2% 50 DROP/5 ML BOTTLE OU SCH ×2 (09:21→13:45)
[2018-11-04] MEDS: Enoxaparin 40 mg Syringe SC SCH (09:22)
[2018-11-04] MEDS: Multivitamin With Minerals Tab PO SCH (09:23)
[2018-11-04] MEDS: Lidocaine 5% Patch TD PRN (09:25)
--- NOTE | 2018-11-04 10:55 | CP.PCM.PN ---
Subjective - Date & Time of Evaluation Date of Evaluation: 11/03/18 Objective - Vital Signs/Intake and Output Vital Signs (last 24 hours): Temp Pulse Resp BP Pulse Ox 98.2 F 95 H 20 153/78 H 95 11/04/18 08:52 11/04/18 09:22 11/04/18 08:52 11/04/18 09:22 11/04/18 08:52 - Medications Medications: Current Medications Amlodipine Besylate (Norvasc) 2.5 mg PO DAILY [facility] Last Admin: 11/04/18 09:22 Dose: 2.5 mg Brimonidine Tartrate (Alphagan 0.2% Opht) 1 drop OU TID [facility] Last Admin: 11/04/18 09:21 Dose: 1 drop Donepezil HCl (Aricept) 10 mg PO HS [facility] Last Admin: 11/03/18 22:07 Dose: 10 mg Enoxaparin Sodium (Lovenox) 40 mg SC DAILY [facility]; Protocol Last Admin: 11/04/18 09:22 Dose: 40 mg Famotidine (Pepcid) 20 mg PO BID [facility] Last Admin: 11/04/18 09:23 Dose: 20 mg Levothyroxine Sodium (Synthroid) 25 mcg PO DAILY@0630 [facility] Last Admin: 11/04/18 06:36 Dose: 25 mcg Lidocaine (Lidoderm) 1 ea TD DAILY PRN PRN Reason: back pain Last Admin: 11/04/18 09:25 Dose: 1 ea Memantine (Namenda) 10 mg PO BID [facility] Last Admin: 11/04/18 09:22 Dose: 10 mg Multivitamins/Minerals (Therapeutic-M Tab) 1 tab PO DAILY [facility] Last Admin: 11/04/18 09:23 Dose: 1 tab Sertraline HCl (Zoloft) 25 mg PO DAILY [facility] Last Admin: 11/04/18 09:24 Dose: 25 mg Timolol Maleate (Timoptic 0.5% Ophth Soln) 1 drop OU Q12 [facility] Last Admin: 11/04/18 09:23 Dose: 1 drop - Labs Labs: 11/03/18 07:12 11/03/18 07:12 PT 10.5 Seconds (9.8-13.1) 11/02/18 01:30 INR 0.9 11/02/18 01:30 APTT 35.7 Seconds (25.6-37.1) 11/02/18 01:30 Assessment and Plan (1) Head injury Status: Acute (2) Syncope Status: Acute (3) Dementia Status: Acute (4) Recurrent falls Status: Acute (5) Syncope Status: Acute
[2018-11-04 13:42] VITALS: BP 108/67; PULSE 76; RESP 18; O2SAT 99
--- NOTE | 2018-11-06 00:21 | CP.PCM.DIS ---
Provider - Provider Date of Admission: 11/02/18 03:50 Attending physician: [place] MD Consults: 11/02/18 08:24 Cardiology Consult Routine Comment: Syncopy Consulting Provider: Scott Mendez Consulting Physician: Scott Mendez Reason for Consult: Syncopy 11/04/18 10:48 Case Management Referral Routine Comment: Physician Instructions: Reason For Exam: Reason for Referral: Microchip Specialist Eval Time Spent in preparation of Discharge (in minutes): 25 Diagnosis - Discharge Diagnosis (1) Recurrent falls Status: Acute Priority: Medium (2) Syncope Status: Acute Priority: Medium (3) Head injury Status: Acute Priority: High (4) Dementia Status: Acute Priority: Low Hospital Course - Lab Results Lab Results: Most Recent Lab Values WBC 6.3 K/uL (4.8-10.8) 11/03/18 07:12 RBC 4.62 Mil/uL (3.80-5.20) 11/03/18 07:12 Hgb 14.6 g/dL (12.0-16.0) 11/03/18 07:12 Hct 44.3 % (34.0-47.0) 11/03/18 07:12 MCV 95.8 fl (81.0-99.0) 11/03/18 07:12 MCH 31.5 pg (27.0-31.0) H 11/03/18 07:12 MCHC 32.9 g/dL (33.0-37.0) L 11/03/18 07:12 RDW 15.1 % (11.5-14.5) H 11/03/18 07:12 Plt Count 165 K/uL (130-400) 11/03/18 07:12 MPV 9.8 fl (7.2-11.7) 11/03/18 07:12 Neut % (Auto) 45.5 % (50.0-75.0) L 11/03/18 07:12 Lymph % (Auto) 41.5 % (20.0-40.0) H 11/03/18 07:12 Hartley % (Auto) 10.6 % (0.0-10.0) H 11/03/18 07:12 Eos % (Auto) 1.9 % (0.0-4.0) 11/03/18 07:12 Baso % (Auto) 0.5 % (0.0-2.0) 11/03/18 07:12 Neut # (Auto) 2.8 K/uL (1.8-7.0) 11/03/18 07:12 Lymph # (Auto) 2.6 K/uL (1.0-4.3) 11/03/18 07:12 Hartley # (Auto) 0.7 K/uL (0.0-0.8) 11/03/18 07:12 Eos # (Auto) 0.1 K/uL (0.0-0.7) 11/03/18 07:12 Baso # (Auto) 0.0 K/uL (0.0-0.2) 11/03/18 07:12 PT 10.5 Seconds (9.8-13.1) 11/02/18 01:30 INR 0.9 11/02/18 01:30 APTT 35.7 Seconds (25.6-37.1) 11/02/18 01:30 Sodium 139 mmol/l (132-148) 11/03/18 07:12 Potassium 3.8 MMOL/L (3.6-5.0) 11/03/18 07:12 Chloride 104 mmol/L (98-107) 11/03/18 07:12 Carbon Dioxide 28 mmol/L (22-30) 11/03/18 07:12 Anion Gap 11 (10-20) 11/03/18 07:12 BUN 13 mg/dl (7-17) 11/03/18 07:12 Creatinine 0.6 mg/dl (0.7-1.2) L 11/03/18 07:12 Est GFR ( Amer) > 60 11/03/18 07:12 Est GFR (Non-Af Amer) > 60 11/03/18 07:12 Random Glucose 95 mg/dL (65-105) 11/03/18 07:12 Calcium 8.8 mg/dL (8.4-10.2) 11/03/18 07:12 Total Bilirubin 0.3 mg/dl (0.2-1.3) 11/03/18 07:12 AST 32 U/L (14-36) 11/03/18 07:12 ALT 23 U/L (9-52) 11/03/18 07:12 Alkaline Phosphatase 104 U/L (38-126) 11/03/18 07:12 Troponin I < 0.0120 ng/mL (0.00-0.120) 11/02/18 12:45 Total Protein 7.1 G/DL (6.3-8.2) 11/03/18 07:12 Albumin 3.8 g/dL (3.5-5.0) 11/03/18 07:12 Globulin 3.3 gm/dL (2.2-3.9) 11/03/18 07:12 Albumin/Globulin Ratio 1.2 (1.0-2.1) 11/03/18 07:12 Urine Color Colorless (YELLOW) 11/02/18 01:29 Urine Clarity Clear (Clear) 11/02/18 01:29 Urine pH 7.0 (5.0-8.0) 11/02/18 01:29 Ur Specific Blacklick < 1.005 (1.003-1.030) 11/02/18 01:29 Urine Protein Negative mg/dL (NEGATIVE) 11/02/18 01:29 Urine Glucose (UA) Neg mg/dL (NEGATIVE) 11/02/18 01:29 Urine Ketones Negative mg/dL (NEGATIVE) 11/02/18 01:29 Urine Blood Negative (NEGATIVE) 11/02/18 01:29 Urine Nitrate Negative (NEGATIVE) 11/02/18 01:29 Urine Bilirubin Negative (NEGATIVE) 11/02/18 01:29 Urine Urobilinogen 0.2-1.0 mg/dL (0.2-1.0) 11/02/18 01:29 Ur Leukocyte Esterase Neg Ansley/uL (Negative) 11/02/18 01:29 Urine Microscopic WBC 1 /hpf (0-5) 11/02/18 01:29 Ur Squamous Epith Cells 1 /hpf (0-5) 11/02/18 01:29 Urine Bacteria Rare (<OCC) 11/02/18 01:29 Urine Opiates Screen Negative (NEGATIVE) 11/02/18 01:29 Urine Methadone Screen Negative (NEGATIVE) 11/02/18 01:29 Ur Barbiturates Screen Negative (NEGATIVE) 11/02/18 01:29 Ur Phencyclidine Scrn Negative (NEGATIVE) 11/02/18 01:29 Ur Amphetamines Screen Negative (NEGATIVE) 11/02/18 01:29 U Benzodiazepines Scrn Negative (NEGATIVE) 11/02/18 01:29 U Oth Cocaine Metabols Negative (NEGATIVE) 11/02/18 01:29 U Cannabinoids Screen Negative (NEGATIVE) 11/02/18 01:29 Alcohol, Quantitative < 10 mg/dl (0-10) 11/02/18 01:30 Blood Type O POSITIVE 11/02/18 01:30 Blood Type Confirm O POSITIVE 11/02/18 10:03 Antibody Screen Negative 11/02/18 01:30 BBK History Checked No verified bt 11/02/18 01:30 Discharge Exam - Head Exam Head Exam: ATRAUMATIC, NORMAL INSPECTION, NORMOCEPHALIC Discharge Plan - Follow Up Plan Condition: FAIR Disposition: HOME/ ROUTINE Instructions: Syncope (Fainting) (DC) Additional Instructions: follow up with primary doctor in 1 week Referrals: Olamide Ortiz MD [Family Provider] - [place] MD [Staff Provider] -
== END 2018-11-04 15:30 | disposition home or self-care (01) ==
LOC: H.ER 00:32 → H.ERHOLD 03:50 → H.TEL 06:13 → INTOOBSV 11-04 10:53 → OBSVTOIN 11-04 10:53
PROVIDERS: ADMIT Internal Medicine; ATTEND Internal Medicine
DX: S09.90XA Unspecified injury of head, initial encounter (principal); I35.0 Nonrheumatic aortic (valve) stenosis; I10 Essential (primary) hypertension; F03.90 Unspecified dementia, unspecified severity, without behavioral disturbance, psychotic disturbance, mood disturbance, and anxiety; E78.00 Pure hypercholesterolemia, unspecified; M81.0 Age-related osteoporosis without current pathological fracture; Z79.890 Hormone replacement therapy; R55 Syncope and collapse; R29.6 Repeated falls; W19.XXXA Unspecified fall, initial encounter; Y92.009 Unspecified place in unspecified non-institutional (private) residence as the place of occurrence of the external cause; M47.9 Spondylosis, unspecified
CPT/HCPCS: 36415; 70450; 71045; 72125; 72128; 73080; 74177; 80048; 80053; 81003; 84484; 85025; 85610; 85730; 86850; 86900; 93005; 93306; 96374; 97165; 99285; G0378; G0480; G8987; G8988; G8989; J1650; J1885; Q9967

== ENCOUNTER 2018-11-16 00:03 | Observation (INO) | payer MEDICARE, OTHER ==
--- NOTE | 2018-11-16 01:00 | ED PDOC ---
HPI: Trauma/Fall - HPI Time Seen by Provider: 11/16/18 00:31 Chief Complaint (Nursing): Trauma Chief Complaint (Provider): Trauma History Per: Patient, Family (Daughter and grandson) History/Exam Limitations: clinical condition (Dementia) Location Of Injury: Left: Back, Head, Neck, Posterior: Head Associated Symptoms: denies: LOC Additional Complaint(s): 88 years old female with history of dementia at baseline with frequent falls brought in by daughter after fell from bed while getting up around 11:45 pm. Patient's daughter and grandson alternate taking care of her. While grandson was taking care of patient, patient fell landing on left side of her head with bruising to posterior left scalp and left hairline of forehead. Grandson denies loss of consciousness but reports patient had difficulty getting up. Patient complains of left forehead, neck and back pain. Patient is disoriented to place and date. Daughter denies vomiting or patient is on anticoagulant. PMD: None provided Past Medical History Reviewed: Historical Data, Nursing Documentation, Vital Signs Vital Signs: Last Vital Signs Temp 98.5 F 11/16/18 00:06 Pulse 69 11/16/18 00:06 Resp 18 11/16/18 00:06 BP 151/87 H 11/16/18 00:06 Pulse Ox 93 L 11/16/18 00:06 - Medical History PMH: Dementia, HTN, Hypercholesterolemia, Osteoporosis Denies: HIV, Chronic Kidney Disease - Surgical History Surgical History: Cholecystectomy, - Family History Family History: States: Unknown Family Hx - Living Arrangements Living Arrangements: With Family - Home Medications Home Medications: Ambulatory Orders Medication Instructions Recorded Brimonidine Tartrate/Timolol 1 drop EACHEYE Q12 05/10/18 [Combigan 0.2%-0.5% Eye Drops] Famotidine [Pepcid] 20 mg PO BID 05/10/18 Lidocaine 5% [Lidoderm] 1 patch TD DAILY PRN 05/10/18 Multivitamin [Multi-Vitamin Daily] 1 tab PO DAILY 05/10/18 amLODIPine [Norvasc] 2.5 mg PO DAILY 05/10/18 Levothyroxine [Synthroid] 25 mcg PO DAILY 09/05/18 Memantine HCl/Donepezil HCl 1 cap PO DAILY 09/05/18 [Namzaric 28 mg-10 mg Capsule] Sertraline [Zoloft] 25 mg PO DAILY 09/05/18 - Allergies Allergies/Adverse Reactions: Allergies Allergy/AdvReac Type Severity Reaction Status Date / Time No Known Allergies Allergy Verified 11/16/18 00:06 Review of Systems ROS Statement: Except As Marked, All Systems Reviewed And Found Negative Gastrointestinal: Negative for: Vomiting Musculoskeletal: Positive for: Neck Pain, Back Pain, Other (Left forehead pain) Physical Exam - Reviewed Nursing Documentation Reviewed: Yes Vital Signs Reviewed: Yes - Physical Exam Appears: Positive for: Well, No Acute Distress Head Exam: Positive for: NORMOCEPHALIC. Negative for: ATRAUMATIC (Ecchymosis and swelling to left forehead. Area of ecchymosis to left posterior scalp.) Skin: Positive for: Normal Color, Warm, Dry Eye Exam: Positive for: Normal appearance, EOMI, PERRL ENT: Positive for: Normal ENT Inspection Neck: Negative for: Normal (Tenderness to palpation of cervical spine) Cardiovascular/Chest: Positive for: Regular Rate, Rhythm. Negative for: Murmur Respiratory: Positive for: Normal Breath Sounds. Negative for: Respiratory Distress Back: Positive for: Other (Tenderness to palpation of right upper back. Mild tenderness to palpation of lumbar spine bilaterally. No tenderness to palpation of thoracic spine or at lumbar spine.) Extremity: Positive for: Normal ROM Neurological/Psych: Positive for: Awake, Alert, Oriented (x1) - Laboratory Results Result Diagrams: 11/16/18 01:10 11/16/18 01:10 - ECG O2 Sat by Pulse Oximetry: 93 (RA) Pulse Ox Interpretation: Abnormal Medical Decision Making Medical Decision Making: Tie: 0042 MDM: Head trauma with visible injury in patient with dementia at baseline --Difficult to determine if AMS --Basic labs for possible admission --CXR --Reassess patient [address] Without Contrast Findings: Moderate chronic mucosal inflammatory changes of the ethmoid air cells. There is normal configuration of sella turcica. There are no intra or extra- axial collections. There is no mass effect or midline shift. There is no evidence of hematoma formation. No hydrocephalus is present. The ventricles are symmetrical. No abnormal calcifications are present. There is diffuse age-appropriate cerebellar and cerebral atrophy with proportionally dilated ventricles and cortical sulci. There are bilateral periventricular and subcortical white matter hypolucencies compatible with mild chronic microvascular disease. Otherwise, no significant focal abnormalities are seen either in the posterior fossa or supratentorial compartment. IMPRESSION: 1. Age-appropriate cerebellar and cerebral atrophy. 2. Mild chronic microvascular disease. 3. No evidence of acute intracranial pathology. [address] Findings: There are diffuse spondylotic changes. Findings are demonstrated by disc space narrowing, osteophyte formation and degenerative endplate changes. Facet joint arthropathy is noted. No fracture or dislocation is seen. No aggressive bone lesion is noted. Impression: Spondylosis. Multilevel facet joint arthropathy. No acute bone pathology. 0307 Patient to be held for observation, admitted to med/surg under Dr. Kern. Scribe Attestation: Documented by Kaley Patel, acting as a scribe for Ewa Greenfield MD. Provider Scribe Attestation: All medical record entries made by the Scribe were at my direction and personally dictated by me. I have reviewed the chart and agree that the record accurately reflects my personal performance of the history, physical exam, medical decision making, and the department course for this patient. I have also personally directed, reviewed, and agree with the discharge instructions and disposition. Disposition - Clinical Impression Clinical Impression: Head trauma - Patient ED Disposition Is Patient to be Admitted: Yes - Disposition Disposition Time: 03:07 Condition: STABLE
[2018-11-16 01:17] LABS: BASO # 0.1 K/uL (0.0-0.2); BASO % 0.9 % (0.0-2.0); EOS # 0.1 K/uL (0.0-0.7); EOS % 1.8 % (0.0-4.0); HEMOGLOBIN 14.3 g/dL (12.0-16.0); LYMPH # 2.4 K/uL (1.0-4.3); LYMPH % 40.6 % (20.0-40.0); MEAN CELL VOLUME 95.1 fl (81.0-99.0); MEAN CORPUSCULAR HEMOGLOBIN 31.8 pg (27.0-31.0); MEAN CORPUSCULAR HGB CONC 33.4 g/dL (33.0-37.0); MEAN PLATELET VOLUME 9.5 fl (7.2-11.7); MONO # 0.8 K/uL (0.0-0.8); MONO % 13.9 % (0.0-10.0); NEUT # 2.5 K/uL (1.8-7.0); NEUT % 42.8 % (50.0-75.0); NRBC % 0.1 % (0.0-0.0); RBC 4.48 Mil/uL (3.80-5.20); RED CELL DISTRIBUTION WIDTH 14.8 % (11.5-14.5); WHITE BLOOD COUNT 5.9 K/uL (4.8-10.8)
[2018-11-16 01:28] LABS: BLOOD UREA NITROGEN 10 mg/dl (7-17); CALCIUM 9.2 mg/dL (8.4-10.2); GFR NON-AFRICAN AMERICAN > 60
[2018-11-16 01:29] LABS: INR 0.9; PROTHROMBIN TIME 10.7 Seconds (9.8-13.1)
[2018-11-16 01:31] LABS: PARTIAL THROMBOPLASTIN TIME 35.4 Seconds (25.6-37.1)
[2018-11-16 06:29] VITALS: BMI 20.2
[2018-11-16] MEDS: Enoxaparin 40 mg Syringe SC SCH (08:12)
[2018-11-16] MEDS: Brimonidine 0.2% 50 DROP/5 ML BOTTLE OU SCH ×3 (08:12→16:19)
[2018-11-16] MEDS: Levothyroxine 25 MCG TAB PO SCH (08:14)
[2018-11-16] MEDS: Multivitamin With Minerals Tab PO SCH (08:14)
--- NOTE | 2018-11-16 08:51 | CT ---
Date of service: 11/16/2018 PROCEDURE: CT Cervical Spine without contrast HISTORY: Spinal tenderness with fall COMPARISON: No prior TECHNIQUE: Axial computed tomography images were obtained of the cervical spine without the use of intravenous contrast. Coronal and sagittal reformatted images were created and reviewed. Radiation dose: Total exam DLP = 287.73 mGy-cm. This CT exam was performed using one or more of the following dose reduction techniques: Automated exposure control, adjustment of the mA and/or kV according to patient size, and/or use of iterative reconstruction technique. FINDINGS: VERTEBRAE: No acute compression fractures nor retropulsed fragments. 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 Vertebral bodies exhibit normal stature. Vertebral bodies and facets normally aligned.. No fracture. Normal alignment. No destructive bony lesion. DISCS/SPINAL CANAL/NEURAL FORAMINA: Mild multilevel degenerative spondylosis. Changes include varying degrees of disc space narrowing endplate eburnation and subchondral cystic changes At the C2-C3 level, there is adequate disc height. Small central and bilateral disc ridge complex minimally flattens the ventral surface of the thecal sac. Central canal slightly narrowed. Mild hypertrophic uncovertebral and facet joint changes. At the C3-C4 level, there is disc space narrowing. Small broad-based disc ridge complex contiguous with hypertrophic uncovertebral joints. Facets also hypertrophic left greater than right. Changes result in mild canal narrowing and bilateral foraminal stenosis. At the C4 4 C5 level, there is disc space narrowing. Small central and bilateral disc protrusion compresses the ventral surface of the thecal sac and spinal cord. Central canal is mildly stenotic. The uncovertebral and facet joints are hypertrophic with bilateral foraminal stenosis right greater than left. At the C5-C6 level, there is also disc space narrowing with small broad-based though somewhat asymmetric disc bulge larger on the right than left with flattening of the ventral surface of the cord. The facets and uncovertebral joints are hypertrophic. Exit foramina are narrowed bilaterally rib right greater than left. At the C6-C7 level, there is disc space narrowing with mild broad-based disc ridge complex contiguous with hypertrophic uncovertebral joints. Central canal is slightly narrowed. Exit foramina also narrowed bilaterally PARASPINAL SOFT TISSUES: Unremarkable. OTHER FINDINGS: Mild right and minimal left apical pleural thickening. IMPRESSION: No acute fractures. Fusion anomaly posterior arch of C1. Multilevel degenerative spondylosis.
--- NOTE | 2018-11-16 08:56 | CT ---
Date of service: 11/16/2018 PROCEDURE: CT HEAD WITHOUT CONTRAST. HISTORY: Head trauma with ecchymosis COMPARISON: Comparison made with prior CT scan brain 11/02/2018 TECHNIQUE: Axial computed tomography images were obtained through the head/brain without intravenous contrast. Radiation dose: Total exam DLP = 735.04 mGy-cm. This CT exam was performed using one or more of the following dose reduction techniques: Automated exposure control, adjustment of the mA and/or kV according to patient size, and/or use of iterative reconstruction technique. FINDINGS: HEMORRHAGE: No acute parenchymal, subarachnoid or extra-axial hemorrhage. BRAIN: Mild chronic white matter ischemic changes seen extending peripherally into the deep white matter both cerebral hemispheres. 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 Mild to moderate generalized volume loss VENTRICLES: No obstructive hydrocephalus. CALVARIUM: No acute calvarial fractures. PARANASAL SINUSES: Unremarkable as visualized. No significant inflammatory changes. Mild mucosal thickening within multiple ethmoid air cells. MASTOID AIR CELLS: Unremarkable as visualized. No inflammatory changes. OTHER FINDINGS: Changes of bilateral cataract surgery again noted Fusion anomaly posterior arch C1 seen to better advantage on concurrent CT scan of the cervical spine IMPRESSION: Mild chronic white matter ischemic changes seen extending peripherally into the deep white matter both cerebral hemispheres. 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 Mild to moderate generalized volume loss
[2018-11-16] MEDS ORDERED: Patient's Own Med (Multivitamin [Multi-Vitamin Daily] 1 TAB) PO SCH (09:00)
[2018-11-16] MEDS ORDERED: Patient's Own Med (Brimonidine Tartrate/Timolol [Combigan 0.2%-0.5% Eye Drops] 1 DROP) EACHEYE SCH (09:00)
[2018-11-16] MEDS ORDERED: Patient's Own Med (Memantine Hcl/Donepezil Hcl [Namzaric 28 Mg-10 Mg Capsule] 1 CAP) PO SCH (09:00)
--- NOTE | 2018-11-16 15:08 | RAD ---
Date of service: 11/16/2018 HISTORY: Possible admission COMPARISON: Comparison chest dated 11/02/2018. Comparison also made with CTA of the chest dated 05/10/2018. TECHNIQUE: 1 view obtained. FINDINGS: LUNGS: The interstitial markings are increased and coarsened; rule out sequela of reactive/inflammatory airway disease viral illness PLEURA: No significant pleural effusion identified, no pneumothorax apparent. CARDIOVASCULAR: No aortic atherosclerotic calcification present. Normal cardiac size. No pulmonary vascular congestion. OSSEOUS STRUCTURES: No significant abnormalities. VISUALIZED UPPER ABDOMEN: Normal. OTHER FINDINGS: None. IMPRESSION: The interstitial markings are increased and coarsened; rule out sequela of reactive/inflammatory airway disease viral illness
--- NOTE | 2018-11-16 16:52 | RAD ---
Date of service: 11/16/2018 PROCEDURE: Radiographs of the Lumbar Spine. HISTORY: Lower back pain d/t mechanical fall COMPARISON: Comparison made with prior radiographs of the lumbar spine dated 07/29/2013 TECHNIQUE: 5 views obtained. FINDINGS: BONES: No acute compression fractures no retropulsed fragments.. Minor chronic anterior stature loss of the L3 segment. Vertebral bodies exhibit relatively normal stature. There is reversal of the normal lumbar lordosis and moderate levoscoliosis centered at the L2-L3 level. DISC SPACES: Multilevel degenerative spondylosis. Changes include varying degrees of disc space narrowing endplate eburnation with vacuum disc phenomena at several levels as well. Anterolateral and posterior osteophyte formation with hypertrophic facets. OTHER FINDINGS: Metallic clips right upper quadrant of the abdomen consistent with prior cholecystectomy. IMPRESSION: No acute fractures. Moderate to fairly significant multilevel degenerative spondylosis. Reversal of the normal cervical lordosis and moderate on levoscoliosis as above.
[2018-11-17] MEDS: Levothyroxine 25 MCG TAB PO SCH (05:33)
[2018-11-17] MEDS: Brimonidine 0.2% 50 DROP/5 ML BOTTLE OU SCH ×3 (08:58→16:25)
[2018-11-17] MEDS: Enoxaparin 40 mg Syringe SC SCH (08:58)
[2018-11-17] MEDS: Multivitamin With Minerals Tab PO SCH (09:00)
[2018-11-17] MEDS: Lidocaine 5% Patch TD PRN (09:01)
--- NOTE | 2018-11-18 04:54 | CP.PCM.HP ---
Past Patient History - Past Medical History & Family History Past Medical History?: Yes - Past Social History Smoking Status: Never Smoked - CARDIAC Hx Hypercholesterolemia: Yes Hx Hypertension: Yes - PULMONARY Hx Respiratory Disorders: No Hx Asthma: No - NEUROLOGICAL Hx Dementia: Yes - HEENT Hx HEENT Problems: No - RENAL Hx Chronic Kidney Disease: No - ENDOCRINE/METABOLIC Hx Endocrine Disorders: No Hx Diabetes Mellitus Type 2: No - HEMATOLOGICAL/ONCOLOGICAL Hx Human Immunodeficiency Virus (HIV): No - INTEGUMENTARY Hx Dermatological Problems: No - MUSCULOSKELETAL/RHEUMATOLOGICAL Hx Osteoporosis: Yes - GASTROINTESTINAL Hx Gastrointestinal Disorders: No - GENITOURINARY/GYNECOLOGICAL Hx Genitourinary Disorders: No - PSYCHIATRIC Hx Psychophysiologic Disorder: Yes Hx Depression: Yes Hx Substance Use: No - SURGICAL HISTORY Hx Cholecystectomy: Yes - ANESTHESIA Hx Anesthesia: Yes Hx Anesthesia Reactions: No Meds Allergies/Adverse Reactions: Allergies Allergy/AdvReac Type Severity Reaction Status Date / Time No Known Allergies Allergy Verified 11/16/18 00:06 Results - Vital Signs Recent Vital Signs: Last Vital Signs Temp 97.5 F L 11/17/18 23:51 Pulse 76 11/17/18 23:51 Resp 18 11/17/18 23:51 BP 113/66 11/17/18 23:51 Pulse Ox 96 11/17/18 23:51 - Labs Result Diagrams: 11/16/18 01:10 11/16/18 01:10 Labs: Laboratory Results - last 24 hr 11/17/18 15:59 POC Glucose (mg/dL) 161 H
--- NOTE | 2018-11-18 04:55 | CP.PCM.PN ---
Subjective - Date & Time of Evaluation Date of Evaluation: 11/17/18 Objective - Vital Signs/Intake and Output Vital Signs (last 24 hours): Temp Pulse Resp BP Pulse Ox 97.5 F L 76 18 113/66 96 11/17/18 23:51 11/17/18 23:51 11/17/18 23:51 11/17/18 23:51 11/17/18 23:51 - Medications Medications: Current Medications Acetaminophen (Tylenol 325mg Tab) 650 mg PO Q6 PRN PRN Reason: Pain, Mild (1-3) Last Admin: 11/16/18 06:56 Dose: 650 mg Amlodipine Besylate (Norvasc) 2.5 mg PO DAILY [facility] Last Admin: 11/17/18 08:59 Dose: 2.5 mg Brimonidine Tartrate (Alphagan 0.2% Opht) 1 drop OU TID [facility] Last Admin: 11/17/18 16:25 Dose: 1 drop Donepezil HCl (Aricept) 10 mg PO DAILY [facility] Last Admin: 11/17/18 08:58 Dose: 10 mg Enoxaparin Sodium (Lovenox) 40 mg SC DAILY [facility]; Protocol Last Admin: 11/17/18 08:58 Dose: 40 mg Famotidine (Pepcid) 20 mg PO BID [facility] Last Admin: 11/17/18 16:26 Dose: 20 mg Levothyroxine Sodium (Synthroid) 25 mcg PO DAILY@0630 [facility] Last Admin: 11/17/18 05:33 Dose: 25 mcg Lidocaine (Lidoderm) 1 ea TD DAILY PRN PRN Reason: back pain Last Admin: 11/17/18 09:01 Dose: 1 ea Memantine (Namenda) 10 mg PO BID [facility] Last Admin: 11/17/18 16:26 Dose: 10 mg Multivitamins/Minerals (Therapeutic-M Tab) 1 tab PO DAILY [facility] Last Admin: 11/17/18 09:00 Dose: 1 tab Sertraline HCl (Zoloft) 25 mg PO DAILY [facility] Last Admin: 11/17/18 09:01 Dose: 25 mg Timolol Maleate (Timoptic 0.5% Ophth Soln) 1 drop OU Q12 [facility] Last Admin: 11/17/18 20:27 Dose: 1 drop - Labs Labs: 11/16/18 01:10 11/16/18 01:10 PT 10.7 Seconds (9.8-13.1) 11/16/18 01:10 INR 0.9 11/16/18 01:10 APTT 35.4 Seconds (25.6-37.1) 11/16/18 01:10
[2018-11-18] MEDS: Lidocaine 5% Patch TD PRN (05:07)
[2018-11-18] MEDS: Levothyroxine 25 MCG TAB PO SCH (05:31)
[2018-11-18 07:42] VITALS: BP 134/75; RESP 19; TEMP 97.7; O2SAT 98
[2018-11-18] MEDS: Brimonidine 0.2% 50 DROP/5 ML BOTTLE OU SCH ×2 (08:39→13:08)
[2018-11-18] MEDS: Enoxaparin 40 mg Syringe SC SCH (08:41)
[2018-11-18] MEDS: Multivitamin With Minerals Tab PO SCH (08:43)
--- NOTE | 2018-11-18 15:13 | CP.PCM.PCO ---
Assessment/Plan - Assessment/Plan Assessment (Free Text): Pt seen and examined at bedside, in no acute distress. AAO to self, head normocephalic, atraumatic, heart S1S2, RRR, lungs clear all lung louie, abd soft, non tender. Images and labs reviewed, CT head - chronic ischemic changes. Pt seen and cleared by PT for home with home care services. Home care services arranged by CM. Pt cleared for d/c home by Dr. Kern. Resume all home meds as per med rec. - Consults Consult Orders: Consultations
[2018-11-18 16:40] VITALS: PULSE 77
--- NOTE | 2018-11-20 01:01 | CP.PCM.DIS ---
Provider - Provider Date of Admission: 11/16/18 02:45 Attending physician: North Kern MD Consults: 11/16/18 09:00 Case Management Referral Routine Comment: Physician Instructions: Reason For Exam: Needs assistance at home Reason for Referral: Discharge Planning Nursing Referral for Palliative Care Routine Comment: Consulting Provider: Linda Langford Physician Instructions: Reason For Exam: hx of dementia, lives alone, hx falls Nursing Referral for Wound Care Routine Comment: Physician Instructions: Reason For Exam: low mateo scale Social Work Referral Routine Comment: lives alone Physician Instructions: Reason For Exam: lives alone Time Spent in preparation of Discharge (in minutes): 25 Diagnosis - Discharge Diagnosis (1) Head trauma Status: Acute Priority: High Comment: 2nd to Fall Hospital Course - Lab Results Lab Results: Most Recent Lab Values WBC 5.9 K/uL (4.8-10.8) 11/16/18 01:10 RBC 4.48 Mil/uL (3.80-5.20) 11/16/18 01:10 Hgb 14.3 g/dL (12.0-16.0) 11/16/18 01:10 Hct 42.6 % (34.0-47.0) 11/16/18 01:10 MCV 95.1 fl (81.0-99.0) 11/16/18 01:10 MCH 31.8 pg (27.0-31.0) H 11/16/18 01:10 MCHC 33.4 g/dL (33.0-37.0) 11/16/18 01:10 RDW 14.8 % (11.5-14.5) H 11/16/18 01:10 Plt Count 193 K/uL (130-400) 11/16/18 01:10 MPV 9.5 fl (7.2-11.7) 11/16/18 01:10 Neut % (Auto) 42.8 % (50.0-75.0) L 11/16/18 01:10 Lymph % (Auto) 40.6 % (20.0-40.0) H 11/16/18 01:10 [place] % (Auto) 13.9 % (0.0-10.0) H 11/16/18 01:10 Eos % (Auto) 1.8 % (0.0-4.0) 11/16/18 01:10 Baso % (Auto) 0.9 % (0.0-2.0) 11/16/18 01:10 Neut # (Auto) 2.5 K/uL (1.8-7.0) 11/16/18 01:10 Lymph # (Auto) 2.4 K/uL (1.0-4.3) 11/16/18 01:10 [place] # (Auto) 0.8 K/uL (0.0-0.8) 11/16/18 01:10 Eos # (Auto) 0.1 K/uL (0.0-0.7) 11/16/18 01:10 Baso # (Auto) 0.1 K/uL (0.0-0.2) 11/16/18 01:10 PT 10.7 Seconds (9.8-13.1) 11/16/18 01:10 INR 0.9 11/16/18 01:10 APTT 35.4 Seconds (25.6-37.1) 11/16/18 01:10 Sodium 139 mmol/l (132-148) 11/16/18 01:10 Potassium 4.2 MMOL/L (3.6-5.0) 11/16/18 01:10 Chloride 103 mmol/L (98-107) 11/16/18 01:10 Carbon Dioxide 27 mmol/L (22-30) 11/16/18 01:10 Anion Gap 13 (10-20) 11/16/18 01:10 BUN 10 mg/dl (7-17) 11/16/18 01:10 Creatinine 0.5 mg/dl (0.7-1.2) L 11/16/18 01:10 Est GFR ( Amer) > 60 11/16/18 01:10 Est GFR (Non-Af Amer) > 60 11/16/18 01:10 POC Glucose (mg/dL) 161 mg/dL (65-110) H 11/17/18 15:59 Random Glucose 130 mg/dL (65-105) H 11/16/18 01:10 Calcium 9.2 mg/dL (8.4-10.2) 11/16/18 01:10 Discharge Exam - Head Exam Head Exam: NORMOCEPHALIC. absent: ATRAUMATIC (Ecchymosis and swelling to left forehead. Area of ecchymosis to left posterior scalp.) Discharge Plan - Follow Up Plan Condition: STABLE Disposition: DISCHARGED TO HOME CARE Instructions: Preventing Falls in the Older Adult, Head Injury Observation (DC) Additional Instructions: kamar janes con dr ezra zavaleta 1 Referrals: North Kern MD [Staff Provider] -
== END 2018-11-18 15:50 | disposition home health service (06) ==
LOC: H.ER 00:03 → H.ERHOLD 02:45 → H.MEDSURG1 05:25
PROVIDERS: ADMIT Internal Medicine; ATTEND Internal Medicine
DX: S00.03XA Contusion of scalp, initial encounter (principal); S00.83XA Contusion of other part of head, initial encounter; W06.XXXA Fall from bed, initial encounter; Z91.81 History of falling; Y92.009 Unspecified place in unspecified non-institutional (private) residence as the place of occurrence of the external cause; E78.00 Pure hypercholesterolemia, unspecified; F03.90 Unspecified dementia, unspecified severity, without behavioral disturbance, psychotic disturbance, mood disturbance, and anxiety; I10 Essential (primary) hypertension; M81.0 Age-related osteoporosis without current pathological fracture; Z79.890 Hormone replacement therapy; M47.9 Spondylosis, unspecified
CPT/HCPCS: 70450; 71045; 72114; 72125; 80048; 82948; 85025; 85610; 85730; 96372; 96374; 99285; G0378; G8978; G8979; J1650; J1885